=== PATIENT | female | born 1950 | race Hispanic/Latino ===

== ENCOUNTER 2023-06-14 09:27 | Emergency (ER) | payer OTHER ==
[2023-06-14] MEDS ORDERED: ASPIRIN 81 MG CHEWABLE TABLET ONE (10:10)
[2023-06-14] MEDS ORDERED: NITROGLYCERIN 0.4 MG/TAB SL ONE (10:11)
[2023-06-14 10:22] LABS: Absolute Lymphocytes (CBC) 2.2 K/uL (0.7-4.9); Hematocrit 43.6 % (36.0-45.0); Lymphocytes % 23.3 % (15.3-44.8); MCV 92.3 fL (80-100); MPV 9.1 fL (7.6-11.3); Platelets 144 thou/uL (152-406); RBC Red Blood Cell Count 4.72 M/uL (3.86-4.86)
[2023-06-14 10:24] LABS: Protime INR 1.08
[2023-06-14 10:45] LABS: Albumin 3.8 g/dL (3.4-5.0); Bilirubin Direct 0.3 mg/dL (0-0.2); Bilirubin Indirect, Calculated 0.5 mg/dL (0.2-0.8); Bilirubin Total 0.8 mg/dL (0.2-1.0); Magnesium 2.2 mg/dL (1.6-2.4); Potassium 3.9 mEq/L (3.5-5.1); Protein, Total 7.5 g/dL (6.4-8.2); Troponin High Sensitivity 5.4 pg/mL (<58.9)
--- OUTSIDE RECORDS SUMMARY | 2023-06-14 11:17 | XMS REPORT | Continuity of Care Document ---
:1950 Author Organization [facility] Address [address] [place] [address] [address] [place] [address] Care Team Providers Name Role Phone Alycia BUSH, Anabela Weathers Primary Care Physician [phone] Cha BUSH, Williams Szymanski Attending Clinician Regina Nicholson PTA Attending Clinician Unavailable Antoinette Murphy MD Attending Clinician ANTOINETTE MURPHY Attending Clinician Unavailable Ksenia Vergara Attending Clinician Unavailable Javier Nicholson PTA Attending Clinician Unavailable Deepa PT, Spike Attending Clinician Unavailable Lata Jasso PTA Attending Clinician Unavailable Patti Moeller PTA Attending Clinician Unavailable Doctor Unassigned, [place] Attending Clinician Unavailable Shelia Joseph PT Attending Clinician Unavailable Joya HAZEL, Ashley Leal Attending Clinician [phone] Sarahi Orozco PT Attending Clinician Unavailable Jose Francis MD Attending Clinician [phone] Ang BUSH, Alejandrina Reddy Attending Clinician Ernie Mar MD Attending Clinician Abdias BUSH, Harde[place] Attending Clinician Provider, Unknown Attending Clinician Unavailable Alma Travis MA Attending Clinician Unavailable RUDY LEE Attending Clinician Unavailable Rudy Barry Attending Clinician MAURICE ABREU Attending Clinician Unavailable Harlan HIGH, Yadira Attending Clinician Unavailable GARRETT MURPHY Attending Clinician Unavailable Stanton BUSH, Irlanda Attending Clinician Claus Zhang Attending Clinician CLAUS MCBRIDE Attending Clinician Unavailable Geraldo Chase DO Attending Clinician Anabela Tong MD Attending Clinician [phone] ANABELA TONG Attending Clinician Unavailable Deborah Jara Attending Clinician LM ROY Attending Clinician Unavailable 2, [facility] Attending Clinician Unavailable MEKA TINOCO Attending Clinician Unavailable WILLIAMS EUBANKS Admitting Clinician Unavailable ANTOINETTE MURPHY Admitting Clinician Unavailable MEKA TINOCO Admitting Clinician Unavailable Payers Payer Name Policy Type Policy Number Effective Date Expiration Date Dong [employer]ODNEYA MEDICARE [id number] 2016 00:00:00 Problems Condition Condition Condition Status Onset Resolution Last Treating Co mments Source Name Details Category Date Date Treatment Clinician Date Abnormal Abnormal Disease Active Unive rs liver liver 2-13 ity of enzymes enzymes 00:00: [place] [address] [facility] [place] Acquired Acquired Disease Active Unive rs hypothyroi hypothyroi 3-08 it y of dism dism 00:00: [place] [facility] Type 2 Type 2 Disease Active Univers diabetes diabetes 5-22 ity of mellitus mellitus 00:00: [place] without without 00 Medical complicati complicati Br anch on, on, without without long-term long-term current current use of use of insulin insulin Essential Essential Disease Active Uni vers hypertensi hypertensi 5-22 it y of on on 00:00: [place] [facility] [place] Disease Active Overview: Univer s (myocardia (myocardia 07-11 mild it y of l l 00:00: heart [place] infarction infarction 00 attack Me dical ) ) found on Branch routine testing, no stents, follows with Dr. Becker. Stomach Stomach Disease Active Univers ulcer ulcer ity of [facility] Osteoarthr Osteoarthr Disease Active U nivers itis of itis of ity of multiple multiple [place] joints joints Medical Branch Hyperlipid Hyperlipid Disease Active U nivers emia emia ity of [facility] Primary Primary Disease Active Methodi osteoarthr osteoarthr st itis of itis of Hospita left knee left knee l S/P total S/P total Disease Active Met hodi knee knee st arthroplas arthroplas Ho spita ty, left ty, left l Diabetes Diabetes Disease Active Metho di mellitus mellitus st Hospita l Hypothyroi Hypothyroi Disease Active M ethodi dism dism st Hospita l Hypertensi Hypertensi Disease Active M ethodi on on st Hospita l Transamini Transamini Disease Active M ethodi tis tis st Hospita l Allergies, Adverse Reactions, Alerts Allergy Allergy Status Severity Reaction(s) Onset Inactive Treating Comm ents Source Name Type Date Date Clinician Gabapent Propensi Active Other (See Weakness, Methodi in ty to Comments) [address] adverse 00:00: , aching, Hospit a reaction 00 all l s to severe. drug Gabapent Propensi Active Other - See Weakness , Univers in ty to comments 8 tiredness ity o f adverse 00:00: , aching, [place] reaction 00 all Medical s severe. Branch GABAPENT DRUG Active Other-Cmnt Univ ers IN INGREDI 8 ity of 00:00: [place] 00 Medical Branch Family History Family Member Diagnosis Comments Start Date Stop Date Source Natural father Cancer Mandaeism [facility] Natural mother Arthritis [facility] Natural mother Diabetes [facility] Natural mother Heart disease [facility] Natural mother Hypertension [facility] mother Liver disease [facility] Social History Social Habit Start Date Stop Date Quantity Comments Source History of tobacco Cigarette Smoker University of use [place] [facility] History SDOH University o f Alcohol Frequency [facility] edical Branch History SDTX University o f Alcohol Std Drinks [place] [facility] History SDOH University o f Alcohol Binge [place] [facility] al [facility] Sexual orientation [facility] Hospital Alcohol intake 2022-11-15 2022-11-15 Lifetime Mandaeism 00:00:00 00:00:00 non-drinker Hospital (finding) History of Social 2022-11-15 2022-11-[address] function 00:00:00 00:00:00 Hospital Exposure to 2022-10-05 2022-10-15 Not sure University SARS-CoV-2 (event) 00:00:00 09:04:00 [facility] Tobacco use and 2022-03-22 2022-03-22 Smokeless tobacco Me thodist exposure 00:00:00 00:00:00 non-user Hospital Tobacco Comment 2016-11-29 2016-11-29 smoked in he r20s Un iversity of 00:00:00 00:00:00 [facility] Alcohol Comment 2015-07-01 2015-07-01 Occasional Universit y of 00:00:00 00:00:00 Drinker [facility] Sex [birth year] Mandaeism 00:00:00 00:00:00 Hospital Smoking Status Start Date Stop Date Source Never smoked tobacco Mandaeism H [facility]spital Ex-smoker 2016-11-29 00:00:00 2016-11-29 00:00:00 Universi [facility] Medications Ordered Filled Start Stop Current Ordering Indication Dosage Frequency Signature Comments Components Source Medication Medication Date Date Medication? Clinician (SIG) Name Name levothyroxi Yes 100ug QD Take 1 Met [facility]odi [place] [address] (SYNTHROID) 10:14: (100 mcg Ho spita 100 mcg 12 total) by l tablet mouth daily. insulin Yes Inject Methodi degludec [address] (TRESIBA 10:14: skin. Hospita FLEXTOUCH 12 l U-200 SUBQ) celecoxib 2022- No 100mg Q.5D Take 1 Meth heather (CeleBREX) 11-15 08-[address] 100 MG 00:00: 04:59 (100 mg Hospita capsule 00 :00 total) by l mouth 2 (two) times a day for 90 days. [place]DROcodone 2022- [place] [id number] 1{tbl} Q6H Take 1 Methodi -acetaminop 4-24 05-[address] hen (NORCO) 00:00: 04:59 mouth Hosp maria c 5-325 mg 00 :00 every 6 l per tablet (six) hours as needed for severe pain for up to 7 days .acute pain. Max Daily Amount: 4 tablets HYDROcodone 2023-0 2023- [place] [id number] 1{tbl} Q6H Take 1 Methodi -acetaminop 4-13 04-[address] hen ([employer]) 00:00: 04:59 mouth Hosp maria c 5-325 mg 00 :00 every 6 l per tablet (six) hours as needed for severe pain for up to 7 days .acute pain. Max Daily Amount: 4 tablets rosuvastati 3-0 Yes 10mg QD Take 1 Meth heather n (CRESTOR) 4-05 tablet (10 st 10 mg 00:00: mg total) Hospita tablet 00 by mouth l daily. HYDROcodone 3-0 2022- [place] [id number] 1{tbl} Q6H Take 1 Methodi -acetaminop 3-27 04-[address] hen ([employer]) 00:00: 04:59 mouth Hosp maria c 10-325 mg 00 :00 every 6 l per tablet (six) hours as needed for severe pain for up to 7 days .acute pain. Max Daily Amount: 4 tablets OneTouch 3-0 Yes USE TO Methodi Verio test 3-[address] strips 00:00: GLUCOSE Hospita strip test 00 ONCE DAILY l strips HYDROcodone 3-0 3- No [id number] 1{tbl} Q4H Take 1 Methodi -acetaminop 3-14 03-[address] hen ([employer]) 00:00: 04:59 mouth Hosp maria c 10-325 mg 00 :00 every 4 l per tablet (four) hours as needed for severe pain for up to 7 days .acute pain. Max Daily Amount: 6 tablets OneTouch 3-0 Yes USE TO Methodi Delica Plus 3-[address] Lancet 33 00:00: GLUCOSE Hospi ta gauge misc 00 ONCE DAILY l HYDROcodone 3-0 3- No [id number] 1{tbl} Q6H Take 1 Methodi -acetaminop 3-08 03-[address] hen ([employer]) 00:00: 04:59 mouth Hosp maria c 10-325 mg 00 :00 every 6 l per tablet (six) hours as needed for severe pain for up to 7 days .acute pain. Max Daily Amount: 4 tablets HYDROcodone 2022-0 2022- [place] [id number] 1{tbl} Q4H Take 1 Methodi -acetaminop 08-[address] hen ([employer]) 00:00: 05:59 mouth Hosp maria c 10-325 mg 00 :00 every 4 l per tablet (four) hours as needed for severe pain for up to 7 days .acute pain. Max Daily Amount: 6 tablets nitrofurant Yes TAKE ONE Me thodi oin, 08-18 (1) st macrocrysta 00:00: CAPSULE(S) Hospita l-monohydra 00 BY MOUTH l te, TWICE A (MACROBID) DAY FOR 4 100 MG DAYS. capsule aspirin 2022- No 81mg Q.5D Take 1 Methodi (ECOTRIN) 08-18 tablet (81 st 81 MG 00:00: 05:59 mg total) Hospit a enteric 00 :00 by mouth 2 l coated (two) tablet times a day for 30 days. methocarbam 2022- No 500mg Q8H Take 1 Me thodi oL 08-[address] (ROBAXIN) 00:00: 05:59 (500 mg Hosp maria c 500 MG 00 :00 total) by l tablet mouth every 8 (eight) hours as needed for muscle spasms for up to 30 days. sennosides- 2022- No 2{tbl} Q.5D Take 2 M ethodi docusate 08-[address] sodium 00:00: 05:59 mouth 2 Hospita (Senna with 00 :00 (two) l Docusate times a Sodium) day for 30 8.6-50 mg days. Hold per tablet for loose stools or diarrhea cefadroxil 2022- No 500mg Q.5D Take 1 Met hodi (DURICEF) 08-[address] 500 MG 00:00: 05:59 (500 mg Hospita capsule 00 :00 total) by l mouth 2 (two) times a day for 10 days. HYDRO[place]one 2022-20[place]- [place] [id number] 1{tbl} Q4H Take 1 Methodi -acetaminop 08-[address] hen (NORCO) 00:00: 05:59 mouth Hosp maria c 10-325 mg 00 :00 every 4 l per tablet (four) hours as needed for severe pain for up to 7 days .acute pain. Max Daily Amount: 6 tablets keTOROlac 0 2022- No 10mg Q6H Take 1 Metho di (TORadol) 2 02-14 tablet (10 st 10 mg 00:00: 05:59 mg total) Hospit a tablet 00 :00 by mouth l every 6 (six) hours as needed for moderate pain for up to 5 days. amoxicillin 0 2022- No 1{tbl} Q.5D Take 1 M ethodi -pot 2-[address] clavulanate 00:00: 00:00 mouth 2 Ho spita (Augmentin) 00 :00 (two) l 875-125 mg times a per tablet day for 4 days. nitrofurant 2022-2022- No 100mg Q.5D Take 1 Me thodi oin, 08-[address] macrocrysta 00:00: 00:00 (100 mg Ho spita l-monohydra 00 :00 total) by l te, mouth 2 (Macrobid) (two) 100 MG times a capsule day for 4 days. metoprolol Yes 25mg QD Take 1 Metho di succinate 1-16 tablet (25 st XL 00:00: mg total) Hospita (TOPROL-XL) 00 by mouth l 25 mg 24 hr daily. tablet Janumet XR Yes TAKE 1 Metho di 100-1,000 8-[address] mg tablet, 00:00: MOUTH ONCE H ospita ER 00 A DAY WITH l multiphase EVENING 24 hr MEAL fluticasone 0 Yes [id number] 1{spray Use 1 Univers propionate 8-12 } [place] in ity o f 50 00:00: each [place] mcg/actuati 00 nostril Medic al on nasal daily. Branch spray azelastine Yes [id number] 1{spray Use 1 Univers 137 mcg 8-12 } [place] in ity of (0.1 %) 00:00: each [place] nasal spray 00 nostril 2 Med ical (two) Branch times daily. Use in each nostril as directed fluticasone 2020-0 Yes [id number] 1{spray Use 1 Univers propionate 8-12 } [place] in ity o f 50 00:00: each [place] mcg/actuati 00 nostril Medic al on nasal daily. Branch spray azelastine 2020-0 Yes [id number] 1{spray Use 1 Univers 137 mcg 8-12 } [place] in ity of (0.1 %) 00:00: each [place] nasal spray 00 nostril 2 Med ical (two) Branch times daily. Use in each nostril as directed fluticasone 2020-0 Yes [id number] 1{spray Use 1 Univers propionate 8-12 } [place] in ity o f 50 00:00: each [place] mcg/actuati 00 nostril Medic al on nasal daily. Branch spray azelastine 2020-0 Yes [id number] 1{spray Use 1 Univers 137 mcg 8-12 } [place] in ity of (0.1 %) 00:00: each [place] nasal spray 00 nostril 2 Med ical (two) Branch times daily. Use in each nostril as directed fluticasone 2020-0 Yes [id number] 1{spray Use 1 Univers propionate 8-12 } [place] in ity o f 50 00:00: each [place] mcg/actuati 00 nostril Medic al on nasal daily. Branch spray azelastine 2020-0 Yes [id number] 1{spray Use 1 Univers 137 mcg 8-12 } [place] in ity of (0.1 %) 00:00: each [place] nasal spray 00 nostril 2 Med ical (two) Branch times daily. Use in each nostril as directed fluticasone 2020-0 Yes [id number] 1{spray Use 1 Univers propionate 8-12 } [place] in ity o f 50 00:00: each [place] mcg/actuati 00 nostril Medic al on nasal daily. Branch spray azelastine 2020-0 Yes [id number] 1{spray Use 1 Univers 137 mcg 8-12 } [place] in ity of (0.1 %) 00:00: each [place] nasal spray 00 nostril 2 Med ical (two) Branch times daily. Use in each nostril as directed fluticasone 2020-0 Yes [id number] 1{spray Use 1 Univers propionate 8-12 } [place] in ity o f 50 00:00: each [place] mcg/actuati 00 nostril Medic al on nasal daily. Branch spray azelastine 2020-0 Yes [id number] 1{spray Use 1 Univers 137 mcg 8-12 } [place] in ity of (0.1 %) 00:00: each [place] nasal spray 00 nostril 2 Med ical (two) Branch times daily. Use in each nostril as directed fluticasone 2020-0 Yes [id number] 1{spray Use 1 Univers propionate 8-12 } [place] in ity o f 50 00:00: each [place] mcg/actuati 00 nostril Medic al on nasal daily. Branch spray azelastine 2020-0 Yes [id number] 1{spray Use 1 Univers 137 mcg 8-12 } [place] in ity of (0.1 %) 00:00: each [place] nasal spray 00 nostril 2 Med ical (two) Branch times daily. Use in each nostril as directed fluticasone 2020-0 Yes [id number] 1{spray Use 1 Univers propionate 8-12 } [place] in ity o f 50 00:00: each [place] mcg/actuati 00 nostril Medic al on nasal daily. Branch spray azelastine 2020-0 Yes [id number] 1{spray Use 1 Univers 137 mcg 8-12 } [place] in ity of (0.1 %) 00:00: each [place] nasal spray 00 nostril 2 Med ical (two) Branch times daily. Use in each nostril as directed fluticasone 2020-0 Yes [id number] 1{spray Use 1 Univers propionate 8-12 } [place] in ity o f 50 00:00: each [place] mcg/actuati 00 nostril Medic al on nasal daily. Branch spray azelastine 2020-0 Yes [id number] 1{spray Use 1 Univers 137 mcg 8-12 } [place] in ity of (0.1 %) 00:00: each [place] nasal spray 00 nostril 2 Med ical (two) Branch times daily. Use in each nostril as directed fluticasone 2020-0 Yes [id number] 1{spray Use 1 Univers propionate 8-12 } [place] in ity o f 50 00:00: each [place] mcg/actuati 00 nostril Medic al on nasal daily. Branch spray azelastine 2020-0 Yes [id number] 1{spray Use 1 Univers 137 mcg 8-12 } [place] in ity of (0.1 %) 00:00: each [place] nasal spray 00 nostril 2 Med ical (two) Branch times daily. Use in each nostril as directed fluticasone 2020-0 Yes [id number] 1{spray Use 1 Univers propionate 8-12 } [place] in ity o f 50 00:00: each [place] mcg/actuati 00 nostril Medic al on nasal daily. Branch spray azelastine 2020-0 Yes [id number] 1{spray Use 1 Univers 137 mcg 8-12 } [place] in ity of (0.1 %) 00:00: each [place] nasal spray 00 nostril 2 Med ical (two) Branch times daily. Use in each nostril as directed fluticasone 2020-0 Yes [id number] 1{spray Use 1 Univers propionate 8-12 } [place] in ity o f 50 00:00: each [place] mcg/actuati 00 nostril Medic al on nasal daily. Branch spray azelastine 2020-0 Yes [id number] 1{spray Use 1 Univers 137 mcg 8-12 } [place] in ity of (0.1 %) 00:00: each [place] nasal spray 00 nostril 2 Med ical (two) Branch times daily. Use in each nostril as directed fluticasone 2020-0 Yes [id number] 1{spray Use 1 Univers propionate 8-12 } [place] in ity o f 50 00:00: each [place] mcg/actuati 00 nostril Medic al on nasal daily. Branch spray azelastine 2020-0 Yes [id number] 1{spray Use 1 Univers 137 mcg 8-12 } [place] in ity of (0.1 %) 00:00: each [place] nasal spray 00 nostril 2 Med ical (two) Branch times daily. Use in each nostril as directed fluticasone 2020-0 Yes [id number] 1{spray Use 1 Univers propionate 8-12 } [place] in ity o f 50 00:00: each [place] mcg/actuati 00 nostril Medic al on nasal daily. Branch spray azelastine 2020-0 Yes [id number] 1{spray Use 1 Univers 137 mcg 8-12 } [place] in ity of (0.1 %) 00:00: each [place] nasal spray 00 nostril 2 Med ical (two) Branch times daily. Use in each nostril as directed fluticasone 2020-0 Yes [id number] 1{spray Use 1 Univers propionate 8-12 } [place] in ity o f 50 00:00: each [place] mcg/actuati 00 nostril Medic al on nasal daily. Branch spray azelastine 2020-0 Yes [id number] 1{spray Use 1 Univers 137 mcg 8-12 } [place] in ity of (0.1 %) 00:00: each [place] nasal spray 00 nostril 2 Med ical (two) Branch times daily. Use in each nostril as directed fluticasone 2020-0 Yes [id number] 1{spray Use 1 Univers propionate 8-12 } [place] in ity o f 50 00:00: each [place] mcg/actuati 00 nostril Medic al on nasal daily. Branch spray azelastine 2020-0 Yes [id number] 1{spray Use 1 Univers 137 mcg 8-12 } [place] in ity of (0.1 %) 00:00: each [place] nasal spray 00 nostril 2 Med ical (two) Branch times daily. Use in each nostril as directed fluticasone 2020-0 Yes [id number] 1{spray Use 1 Univers propionate 8-12 } [place] in ity o f 50 00:00: each [place] mcg/actuati 00 nostril Medic al on nasal daily. Branch spray azelastine 2020-0 Yes [id number] 1{spray Use 1 Univers 137 mcg 8-12 } [place] in ity of (0.1 %) 00:00: each [place] nasal spray 00 nostril 2 Med ical (two) Branch times daily. Use in each nostril as directed fluticasone 2020-0 Yes [id number] 1{spray Use 1 Univers propionate 8-12 } [place] in ity o f 50 00:00: each [place] mcg/actuati 00 nostril Medic al on nasal daily. Branch spray azelastine 2020-0 Yes [id number] 1{spray Use 1 Univers 137 mcg 8-12 } [place] in ity of (0.1 %) 00:00: each [place] nasal spray 00 nostril 2 Med ical (two) Branch times daily. Use in each nostril as directed fluticasone 2020-0 Yes [id number] 1{spray Use 1 Univers propionate 8-12 } [place] in ity o f 50 00:00: each [place] mcg/actuati 00 nostril Medic al on nasal daily. Branch spray azelastine 2020-0 Yes [id number] 1{spray Use 1 Univers 137 mcg 8-12 } [place] in ity of (0.1 %) 00:00: each [place] nasal spray 00 nostril 2 Med ical (two) Branch times daily. Use in each nostril as directed fluticasone 2020-0 Yes [id number] 1{spray Use 1 Univers propionate 8-12 } [place] in ity o f 50 00:00: each [place] mcg/actuati 00 nostril Medic al on nasal daily. Branch spray azelastine 2020-0 Yes [id number] 1{spray Use 1 Univers 137 mcg 8-12 } [place] in ity of (0.1 %) 00:00: each [place] nasal spray 00 nostril 2 Med ical (two) Branch times daily. Use in each nostril as directed fluticasone 2020-0 Yes [id number] 1{spray Use 1 Univers propionate 8-12 } [place] in ity o f 50 00:00: each [place] mcg/actuati 00 nostril Medic al on nasal daily. Branch spray azelastine 2020-0 Yes [id number] 1{spray Use 1 Univers 137 mcg 8-12 } [place] in ity of (0.1 %) 00:00: each [place] nasal spray 00 nostril 2 Med ical (two) Branch times daily. Use in each nostril as directed fluticasone 2020-0 Yes [id number] 1{spray Use 1 Univers propionate 8-12 } [place] in ity o f 50 00:00: each [place] mcg/actuati 00 nostril Medic al on nasal daily. Branch spray azelastine 2020-0 Yes [id number] 1{spray Use 1 Univers 137 mcg 8-12 } [place] in ity of (0.1 %) 00:00: each [place] nasal spray 00 nostril 2 Med ical (two) Branch times daily. Use in each nostril as directed fluticasone 2020-0 Yes [id number] 1{spray Use 1 Univers propionate 8-12 } [place] in ity o f 50 00:00: each [place] mcg/actuati 00 nostril Medic al on nasal daily. Branch spray azelastine 2020-0 Yes [id number] 1{spray Use 1 Univers 137 mcg 8-12 } [place] in ity of (0.1 %) 00:00: each [place] nasal spray 00 nostril 2 Med ical (two) Branch times daily. Use in each nostril as directed fluticasone 2020-0 Yes [id number] 1{spray Use 1 Univers propionate 8-12 } [place] in ity o f 50 00:00: each [place] mcg/actuati 00 nostril Medic al on nasal daily. Branch spray azelastine 2020-0 Yes [id number] 1{spray Use 1 Univers 137 mcg 8-12 } [place] in ity of (0.1 %) 00:00: each [place] nasal spray 00 nostril 2 Med ical (two) Branch times daily. Use in each nostril as directed fluticasone 2020-0 Yes [id number] 1{spray Use 1 Univers propionate 8-12 } [place] in ity o f 50 00:00: each [place] mcg/actuati 00 nostril Medic al on nasal daily. Branch spray azelastine 2020-0 Yes [id number] 1{spray Use 1 Univers 137 mcg 8-12 } [place] in ity of (0.1 %) 00:00: each [place] nasal spray 00 nostril 2 Med ical (two) Branch times daily. Use in each nostril as directed fluticasone 2020-0 Yes [id number] 1{spray Use 1 Univers propionate 8-12 } [place] in ity o f 50 00:00: each [place] mcg/actuati 00 nostril Medic al on nasal daily. Branch spray azelastine 202-0 Yes [id number] 1{spray Use 1 Univers 137 mcg 8-12 } [place] in ity of (0.1 %) 00:00: each [place] nasal spray 00 nostril 2 Med ical (two) Branch times daily. Use in each nostril as directed fluticasone 1-0 Yes [id number] 1{spray Use 1 [facility] propionate 8-12 } [place] in ity o f 50 00:00: each [place] mcg/actuati 00 nostril Medic al on nasal daily. Branch spray azelastine Yes [id number] 1{spray Use 1 Univers 137 mcg 8-12 } [place] in ity of (0.1 %) 00:00: each [place] nasal spray 00 nostril 2 Med ical (two) Branch times daily. Use in each nostril as directed fluticasone Yes [id number] 1{spray Use 1 [facility] propionate 8-12 } [place] in ity o f 50 00:00: each [place] mcg/actuati 00 nostril Medic al on nasal daily. Branch spray azelastine Yes [id number] 1{spray Use 1 Univers 137 mcg 8-12 } [place] in ity of (0.1 %) 00:00: each [place] nasal spray 00 nostril 2 Med ical (two) Branch times daily. Use in each nostril as directed levothyroxi 2019-0 Yes 125ug QD Take 1 Met hodi ne 5-[address] (SYNTHROID) 00:00: (125 mcg Ho spita 125 mcg 00 total) by l tablet mouth every morning. amLODIPine 2020-0 Yes QD Take by Meth heather (NORVASC) 5 5-[address] mg tablet 00:00: daily. Hospit a 00 l EUTHYROX 2020-0 Yes [id number] TAKE 1 Un darrel 125 mcg 5-22 TABLET BY ity of tablet 00:00: MOUTH ONCE [place] 00 DAILY IN Medical THE Branch MORNING AMLODIPINE 2020-0 Yes [id number] TAKE 1 & Univers 5 mg tablet 5-22 1/2 (ONE & it y of 00:00: ONE-HALF) [place] 00 TABLETS BY Medical MOUTH ONCE Branch DAILY EUTHYROX 2020-0 Yes [id number] TAKE 1 Un darrel 125 mcg 5-22 TABLET BY ity of tablet 00:00: MOUTH ONCE [place] 00 DAILY IN Medical THE Branch MORNING AMLODIPINE 2020-0 Yes [id number] TAKE 1 & Univers 5 mg tablet 5-22 1/2 (ONE & it y of 00:00: ONE-HALF) [place] 00 TABLETS BY Medical MOUTH ONCE Branch DAILY EUTHYROX 2020-0 Yes [id number] TAKE 1 Un darrel 125 mcg 5-22 TABLET BY ity of tablet 00:00: MOUTH ONCE [place] 00 DAILY IN Medical THE Branch MORNING AMLODIPINE 2020-0 Yes [id number] TAKE 1 & Univers 5 mg tablet 5-22 1/2 (ONE & it y of 00:00: ONE-HALF) [place] 00 TABLETS BY Medical MOUTH ONCE Branch DAILY EUTHYROX 2020-0 Yes [id number] TAKE 1 Un darrel 125 mcg 5-22 TABLET BY ity of tablet 00:00: MOUTH ONCE [place] 00 DAILY IN Medical THE Branch MORNING AMLODIPINE 2020-0 Yes [id number] TAKE 1 & Univers 5 mg tablet 5-22 1/2 (ONE & it y of 00:00: ONE-HALF) [place] 00 TABLETS BY Medical MOUTH ONCE Branch DAILY EUTHYROX 2020-0 Yes [id number] TAKE 1 Un darrel 125 mcg 5-22 TABLET BY ity of tablet 00:00: MOUTH ONCE [place] 00 DAILY IN Medical THE Branch MORNING AMLODIPINE 2020-0 Yes [id number] TAKE 1 & Univers 5 mg tablet 5-22 /2 (ONE & it y of 00:00: ONE-HALF) [place] 00 TABLETS BY Medical MOUTH ONCE Branch DAILY EUTHYROX 2020-0 Yes [id number] TAKE 1 Un darrel 125 mcg 5-22 TABLET BY ity of tablet 00:00: MOUTH ONCE [place] 00 DAILY IN Medical THE Branch MORNING AMLODIPINE 2020-0 Yes [id number] TAKE 1 & Univers 5 mg tablet 5-22 1/2 (ONE & it y of 00:00: ONE-HALF) [place] 00 TABLETS BY Medical MOUTH ONCE Branch DAILY EUTHYROX 2020-0 Yes [id number] TAKE 1 Un darrel 125 mcg 5-22 TABLET BY ity of tablet 00:00: MOUTH ONCE [place] 00 DAILY IN Medical THE Branch MORNING AMLODIPINE 2020-0 Yes [id number] TAKE 1 & [facility] 5 mg tablet 5-22 1/2 (ONE & it y of 00:00: ONE-HALF) [place] 00 TABLETS BY Medical MOUTH ONCE Branch DAILY EUTHYROX 2020-0 Yes [id number] TAKE 1 Un darrel 125 mcg 5-22 TABLET BY ity of tablet 00:00: MOUTH ONCE [place] 00 DAILY IN Medical THE Branch MORNING AMLODIPINE 2020-0 Yes [id number] TAKE 1 & [facility] 5 mg tablet 5-22 1/2 (ONE & it y of 00:00: ONE-HALF) [place] 00 TABLETS BY Medical MOUTH ONCE Branch DAILY EUTHYROX 2020-0 Yes [id number] TAKE 1 Un darrel 125 mcg 5-22 TABLET BY ity of tablet 00:00: MOUTH ONCE [place] 00 DAILY IN Medical THE Branch MORNING AMLODIPINE 2020-0 Yes [id number] TAKE 1 & [facility] 5 mg tablet 5-22 1/2 (ONE & it y of 00:00: ONE-HALF) [place] 00 TABLETS BY Medical MOUTH ONCE Branch DAILY EUTHYROX 2020-0 Yes [id number] TAKE 1 Un darrel 125 mcg 5-22 TABLET BY ity of tablet 00:00: MOUTH ONCE [place] 00 DAILY IN Medical THE Branch MORNING AMLODIPINE 2020-0 Yes [id number] TAKE 1 & [facility] 5 mg tablet 5-22 1/2 (ONE & it y of 00:00: ONE-HALF) [place] 00 TABLETS BY Medical MOUTH ONCE Branch DAILY EUTHYROX 2020-0 Yes [id number] TAKE 1 Un darrel 125 mcg 5-22 TABLET BY ity of tablet 00:00: MOUTH ONCE [place] 00 DAILY IN Medical THE Branch MORNING AMLODIPINE 2020-0 Yes [id number] TAKE 1 & [facility] 5 mg tablet 5-22 1/2 (ONE & it y of 00:00: ONE-HALF) [place] 00 TABLETS BY Medical MOUTH ONCE Branch DAILY EUTHYROX 2020-0 Yes [id number] TAKE 1 Un darrel 125 mcg 5-22 TABLET BY ity of tablet 00:00: MOUTH ONCE [place] 00 DAILY IN Medical THE Branch MORNING AMLODIPINE 2020-0 Yes [id number] TAKE 1 & [facility] 5 mg tablet 5-22 1/2 (ONE & it y of 00:00: ONE-HALF) [place] 00 TABLETS BY Medical MOUTH ONCE Branch DAILY EUTHYROX 2020-0 Yes [id number] TAKE 1 Un darrel 125 mcg 5-22 TABLET BY ity of tablet 00:00: MOUTH ONCE [place] 00 DAILY IN Medical THE Branch MORNING AMLODIPINE 2020-0 Yes [id number] TAKE 1 & [facility] 5 mg tablet 5-22 1/2 (ONE & it y of 00:00: ONE-HALF) [place] 00 TABLETS BY Medical MOUTH ONCE Branch DAILY EUTHYROX 2020-0 Yes [id number] TAKE 1 Un darrel 125 mcg 5-22 TABLET BY ity of tablet 00:00: MOUTH ONCE [place] 00 DAILY IN Medical THE Branch MORNING AMLODIPINE 2020-0 Yes [id number] TAKE 1 & [facility] 5 mg tablet 5-22 1/2 (ONE & it y of 00:00: ONE-HALF) [place] 00 TABLETS BY Medical MOUTH ONCE Branch DAILY EUTHYROX 2020-0 Yes [id number] TAKE 1 Un darrel 125 mcg 5-22 TABLET BY ity of tablet 00:00: MOUTH ONCE [place] 00 DAILY IN Medical THE Branch MORNING AMLODIPINE 2020-0 Yes [id number] TAKE 1 & [facility] 5 mg tablet 5-22 1/2 (ONE & it y of 00:00: ONE-HALF) [place] 00 TABLETS BY Medical MOUTH ONCE Branch DAILY EUTHYROX 2020-0 Yes [id number] TAKE 1 Un darrel 125 mcg 5-22 TABLET BY ity of tablet 00:00: MOUTH ONCE [place] 00 DAILY IN Medical THE Branch MORNING AMLODIPINE 2020-0 Yes [id number] TAKE 1 & [facility] 5 mg tablet 5-22 1/2 (ONE & it y of 00:00: ONE-HALF) [place] 00 TABLETS BY Medical MOUTH ONCE Branch DAILY EUTHYROX 2020-0 Yes [id number] TAKE 1 Un darrel 125 mcg 5-22 TABLET BY ity of tablet 00:00: MOUTH ONCE [place] 00 DAILY IN Medical THE Branch MORNING AMLODIPINE 2020-0 Yes [id number] TAKE 1 & [facility] 5 mg tablet 5-22 1/2 (ONE & it y of 00:00: ONE-HALF) [place] 00 TABLETS BY Medical MOUTH ONCE Branch DAILY EUTHYROX 2020-0 Yes [id number] TAKE 1 Un darrel 125 mcg 5-22 TABLET BY ity of tablet 00:00: MOUTH ONCE [place] 00 DAILY IN Medical THE Branch MORNING AMLODIPINE 2020-0 Yes [id number] TAKE 1 & [facility] 5 mg tablet 5-22 12 (ONE & it y of 00:00: ONE-HALF) [place] 00 TABLETS BY Medical MOUTH ONCE Branch DAILY EUTHYROX 2020-0 Yes [id number] TAKE 1 Un darrel 125 mcg 5-22 TABLET BY ity of tablet 00:00: MOUTH ONCE [place] 00 DAILY IN Medical THE Branch MORNING AMLODIPINE 2020-0 Yes [id number] TAKE 1 & [facility] 5 mg tablet 5-22 1/2 (ONE & it y of 00:00: ONE-HALF) [place] 00 TABLETS BY Medical MOUTH ONCE Branch DAILY EUTHYROX 2020-0 Yes [id number] TAKE 1 Un darrel 125 mcg 5-22 TABLET BY ity of tablet 00:00: MOUTH ONCE [place] 00 DAILY IN Medical THE Branch MORNING AMLODIPINE 2020-0 Yes [id number] TAKE 1 & [facility] 5 mg tablet 5-22 1/2 (ONE & it y of 00:00: ONE-HALF) [place] 00 TABLETS BY Medical MOUTH ONCE Branch DAILY EUTHYROX 2020-0 Yes [id number] TAKE 1 Un darrel 125 mcg 5-22 TABLET BY ity of tablet 00:00: MOUTH ONCE [place] 00 DAILY IN Medical THE Branch MORNING AMLODIPINE 2020-0 Yes [id number] TAKE 1 & [facility] 5 mg tablet 5-22 1/2 (ONE & it y of 00:00: ONE-HALF) [place] 00 TABLETS BY Medical MOUTH ONCE Branch DAILY EUTHYROX 2020-0 Yes [id number] TAKE 1 Un darrel 125 mcg 5-22 TABLET BY ity of tablet 00:00: MOUTH ONCE [place] 00 DAILY IN Medical THE Branch MORNING AMLODIPINE 2020-0 Yes [id number] TAKE 1 & [facility] 5 mg tablet 5-22 1/2 (ONE & it y of 00:00: ONE-HALF) [place] 00 TABLETS BY Medical MOUTH ONCE Branch DAILY EUTHYROX 2020-0 Yes [id number] TAKE 1 Un darrel 125 mcg 5-22 TABLET BY ity of tablet 00:00: MOUTH ONCE [place] 00 DAILY IN Medical THE Branch MORNING AMLODIPINE 2020-0 Yes [id number] TAKE 1 & [facility] 5 mg tablet 5-22 1/2 (ONE & it y of 00:00: ONE-HALF) [place] 00 TABLETS BY Medical MOUTH ONCE Branch DAILY EUTHYROX 2020-0 Yes [id number] TAKE 1 Un darrel 125 mcg 5-22 TABLET BY ity of tablet 00:00: MOUTH ONCE [place] 00 DAILY IN Medical THE [place] MORNING AMLODIPINE 2020-0 Yes [id number] TAKE 1 & [facility] 5 mg tablet 5-22 12 (ONE & it y of 00:00: ONE-HALF) [place] 00 TABLETS BY Medical MOUTH ONCE Branch DAILY EUTHYROX 2020-0 Yes [id number] TAKE 1 Un darrel 125 mcg 5-22 TABLET BY ity of tablet 00:00: MOUTH ONCE [place] 00 DAILY IN Medical THE Branch MORNING AMLODIPINE 2020-0 Yes [id number] TAKE 1 & [facility] 5 mg tablet 5-22 1/2 (ONE & it y of 00:00: ONE-HALF) [place] 00 TABLETS BY Medical MOUTH ONCE Branch DAILY EUTHYROX 2020-0 Yes [id number] TAKE 1 Un darrel 125 mcg 5-22 TABLET BY ity of tablet 00:00: MOUTH ONCE [place] 00 DAILY IN Medical THE Branch MORNING AMLODIPINE 2020-0 Yes [id number] TAKE 1 & [facility] 5 mg tablet 5-22 1/2 (ONE & it y of 00:00: ONE-HALF) [place] 00 TABLETS BY Medical MOUTH ONCE Branch DAILY EUTHYROX 2020-0 Yes [id number] TAKE 1 Un darrel 125 mcg 5-22 TABLET BY ity of tablet 00:00: MOUTH ONCE [place] 00 DAILY IN Medical THE Branch MORNING AMLODIPINE 2020-0 Yes [id number] TAKE 1 & [facility] 5 mg tablet 5-22 1/2 (ONE & it y of 00:00: ONE-HALF) [place] 00 TABLETS BY Medical MOUTH ONCE Branch DAILY EUTHYROX 2020-0 Yes [id number] TAKE 1 Un darrel 125 mcg 5-22 TABLET BY ity of tablet 00:00: MOUTH ONCE [place] 00 DAILY IN Medical THE Branch MORNING AMLODIPINE 2020-0 Yes [id number] TAKE 1 & [facility] 5 mg tablet 5-22 1/2 (ONE & it y of 00:00: ONE-HALF) [place] 00 TABLETS BY Medical MOUTH ONCE Branch DAILY EUTHYROX 2020-0 Yes [id number] TAKE 1 Un darrel 125 mcg 5-22 TABLET BY ity of tablet 00:00: MOUTH ONCE [place] 00 DAILY IN Medical THE Branch MORNING AMLODIPINE 2020-0 Yes [id number] TAKE 1 & [facility] 5 mg tablet 5-22 1/2 (ONE & it y of 00:00: ONE-HALF) [place] 00 TABLETS BY Medical MOUTH ONCE Branch DAILY EUTHYROX 2020-0 Yes [id number] TAKE 1 Un darrel 125 mcg 5-22 TABLET BY ity of tablet 00:00: MOUTH ONCE [place] 00 DAILY IN Medical THE Branch MORNING AMLODIPINE 2020-0 Yes [id number] TAKE 1 & [facility] 5 mg tablet 5-22 1/2 (ONE & it y of 00:00: ONE-HALF) [place] 00 TABLETS BY Medical MOUTH ONCE Branch DAILY EUTHYROX 2020-0 Yes [id number] TAKE 1 Un darrel 125 mcg 5-22 TABLET BY ity of tablet 00:00: MOUTH ONCE [place] 00 DAILY IN Medical THE Branch MORNING AMLODIPINE 2020-0 Yes [id number] TAKE 1 & [facility] 5 mg tablet 5-22 1/2 (ONE & it y of 00:00: ONE-HALF) [place] 00 TABLETS BY Medical MOUTH ONCE Branch DAILY EUTHYROX 2020-0 Yes [id number] TAKE 1 Un darrel 125 mcg 5-22 TABLET BY ity of tablet 00:00: MOUTH ONCE [place] 00 DAILY IN Medical THE Branch MORNING AMLODIPINE 2020-0 Yes [id number] TAKE 1 & [facility] 5 mg tablet 5-22 1/2 (ONE & it y of 00:00: ONE-HALF) [place] 00 TABLETS BY Medical MOUTH ONCE Branch DAILY NaCl 0.9% 2020-0 2020- No 500mL at 999 [facility] ers (NS) bolus 308 03-08 mL/hr, 500 it y of infusion 01:45: 02:09 mL, IV [place] 500 mL 00 :00 Infusion, Medical ONCE, 1 Branch dose, 09/15/19 at 1945, STAT glimepiride 2019-0 2020- No [id number] 2mg Take 1 [facility] 2 mg tablet 09-14 03-07 tablet by it y of 00:00: 00:00 mouth [place] 00 :00 daily with Medical breakfast. Branch turmeric 2020-0 Yes 500mg Take 500 [facility] ers root 2-24 mg by ity of extract 500 14:46: mouth 2 [facility] as mg Cap 33 (two) Medical times Branch daily. acetaminoph 2020-0 Yes 650mg Take 650 U nivers en (TYLENOL 2-24 mg by ity of ARTHRITIS 14:46: mouth [place] PAIN) 650 33 needed for Medi [place] mg CR Pain. Branch tablet aspirin 81 2020-0 Yes [id number] 81mg Take 81 mg [facility] mg chewable 2-24 by mouth ity of tablet 14:46: daily. [place] 33 Medical Branch [place] 2020-0 Yes 1000mg 1,000 mg. U nivers to 2-24 Takes ity of extract 14:46: 1000mg [place] (BOSWELL[place] 33 daily in Medic al TO XT, pill form. Br anch BULK, MISC) turmeric 2019-0 Yes Supplement [facility] vers (CURCUMIN 2-24 contains ity of MISC) 14:46: [place] 33 and Medical curcumin. Branch milk 2020-0 Yes Take by [facility] thistle/NAC 2-24 mouth. She it y of /dandel/tur 14:46: takes a [place] as amrit (LIVER 33 liver Medical COMPLEX support Branch ORAL) supplement . turmeric 2020-0 Yes 500mg Take 500 [facility] ers root 2-24 mg by ity of extract 500 14:46: mouth 2 [place] as mg Cap 33 (two) Medical times Branch daily. acetaminoph 2020-0 Yes 650mg Take 650 U nivers en (TYLENOL 2-24 mg by ity of ARTHRITIS 14:46: mouth as [place] PAIN[place] 650 33 needed for Medi [place]ant[facility] mg CR Pain. Branch tablet aspirin 81 2020-0 Yes [id number] 81mg Take 81 mg [facility] mg chewable 2-24 by mouth ity of tablet 14:46: daily. [address] [place] 2020-0 Yes 1000mg 1,000 mg. U nivers to 2-24 Takes ity of extract 14:46: 1000mg [place] (BOSWELLIA 33 daily in Medic al TO XT, pill form. Br anch BULK, MISC) turmeric 2020-0 Yes Supplement [facility] vers (CURCUMIN 2-24 contains ity of MISC) 14:46: [place] 33 and Medical curcumin. Branch milk 2020-0 Yes Take by [facility] thistle/NAC 2-24 mouth. She it y of /dandel/tur 14:46: takes a [place] as amrit (LIVER 33 liver Medical COMPLEX support Branch ORAL) supplement . turmeric 2020-0 Yes 500mg Take 500 [facility] ers root 2-24 mg by ity of extract 500 14:46: mouth 2 [facility] as mg Cap 33 (two) Medical times [place] daily. acetaminoph 2020-0 Yes 650mg Take 650 U nivers en (TYLENOL 2-24 mg by ity of ARTHRITIS 14:46: mouth as [place] PAIN) 650 33 needed for Medi [place]antana mg CR Pain. Branch tablet aspirin 81 2020-0 Yes [id number] 81mg Take 81 mg [facility] mg chewable 2-24 by mouth ity of tablet 14:46: daily. [address] [place] 2020-0 Yes 1000mg 1,000 mg. U nivers to 2-24 Takes ity of extract 14:46: 1000mg [place] (BOSWELL[place] 33 daily in Medic al TO XT, pill form. Br anch BULK, MISC) turmeric 2020-0 Yes Supplement [facility] vers (CURCUMIN 2-24 contains ity of MISC) 14:46: [place] 33 and Medical curcumin. Branch milk 2020-0 Yes Take by [facility] thistle/NAC 2-24 mouth. She it y of /dandel/tur 14:46: takes a [place] as amrit (LIVER 33 liver Medical COMPLEX support Branch ORAL) supplement . turmeric 2020-0 Yes 500mg Take 500 [facility] ers root 2-24 mg by ity of extract 500 14:46: mouth 2 [place] as mg Cap 33 (two) Medical times Branch daily. acetaminoph 2020-0 Yes 650mg Take 650 U nivers en (TYLENOL 2-24 mg by ity of ARTHRITIS 14:46: mouth as [place] PAIN) 650 33 needed for Medi [place]ant[place] mg CR Pain. Branch tablet aspirin 81 2020-0 Yes [id number] 81mg Take 81 mg [facility] mg chewable 2-24 by mouth ity of tablet 14:46: daily. [address] [place] 2020-0 Yes 1000mg 1,000 mg. U nivers to 2-24 Takes ity of extract 14:46: 1000mg [place] (BOSWELL[place] 33 daily in Medic al TO XT, pill form. Br anch BULK, MISC) turmeric 2020-0 Yes Supplement [facility] vers (CURCUMIN 2-24 contains ity of MISC) 14:46: [place] 33 and Medical curcumin. Branch milk 2020-0 Yes Take by [facility] thistle/NAC 2-24 mouth. She it y of /dandel/tur 14:46: takes a [place] as amrit (LIVER 33 liver Medical COMPLEX support Branch ORAL) supplement . turmeric 2020-0 Yes 500mg Take 500 [facility] ers root 2-24 mg by ity of extract 500 14:46: mouth 2 [facility] as mg Cap 33 (two) Medical times [place] daily. acetaminoph 2020-0 Yes 650mg Take 650 U nivers en (TYLENOL 2-24 mg by ity of ARTHRITIS 14:46: mouth as [place] PAIN[place] 650 33 needed for Medi santana mg CR Pain. Branch tablet aspirin 81 2020-0 Yes [id number] 81mg Take 81 mg [facility] mg chewable 2-24 by mouth ity of tablet 14:46: daily. [address] [place] 2020-0 Yes 1000mg 1,000 mg. U nivers to 2-24 Takes ity of extract 14:46: 1000mg [place] (BOSWELL[place] 33 daily in Medic al TO XT, pill form. Br anch BULK, MISC) turmeric 2020-0 Yes Supplement [facility] vers (CURCUMIN 2-24 contains ity of MISC) 14:46: [place] 33 and Medical curcumin. Branch milk 2020-0 Yes Take by [facility] thistle/NAC 2-24 mouth. She it y of /dandel/tur 14:46: takes a [place] as amrit (LIVER 33 liver Medical COMPLEX support Branch ORAL) supplement . turmeric 2020-0 Yes 500mg Take 500 [facility] ers root 2-24 mg by ity of extract 500 14:46: mouth 2 [facility] as mg Cap 33 (two) Medical times [place] daily. acetaminoph 2020-0 Yes 650mg Take 650 U nivers en (TYLENOL 2-24 mg by ity of ARTHRITIS 14:46: mouth as [place] PAIN) 650 33 needed for Medi [facility]antana mg CR Pain. Branch tablet aspirin 81 2020-0 Yes [id number] 81mg Take 81 mg [facility] mg chewable 2-24 by mouth ity of tablet 14:46: daily. [place] [address] Medical Branch [place] 2020-0 Yes 1000mg 1,000 mg. U nivers to 2-24 Takes ity of extract 14:46: 1000mg [place] (BOSWELLIA 33 daily in Medic al TO XT, pill form. Br anch BULK, MISC) turmeric 2020-0 Yes Supplement [facility] vers (CURCUMIN 2-24 contains ity of MISC) 14:46: [place] [address] and Medical curcumin. Branch milk 2019-0 Yes Take by [facility] thistle/NAC 2-24 mouth. She it y of /dandel/tur 14:46: takes a [place] as amrit (LIVER 33 liver Medical COMPLEX support Branch ORAL) supplement . turmeric 2020-0 Yes 500mg Take 500 [facility] ers root 2-24 mg by ity of extract 500 14:46: mouth 2 [facility] as mg Cap 33 (two) Medical times [place] daily. acetaminoph 2020-0 Yes 650mg Take 650 U nivers en (TYLENOL 2-24 mg by ity of ARTHRITIS 14:46: mouth as [place] PAIN[place] 650 33 needed for Medi santana mg CR Pain. Branch tablet aspirin 81 2020-0 Yes [id number] 81mg Take 81 mg [facility] mg chewable 2-24 by mouth ity of tablet 14:46: daily. [place] [address] Medical Branch [place] 2020-0 Yes 1000mg 1,000 mg. U nivers to 2-24 Takes ity of extract 14:46: 1000mg [place] (BOSWELL[place] 33 daily in Medic al TO XT, pill form. Br anch BULK, MISC) turmeric 2020-0 Yes Supplement [facility] vers (CURCUMIN 2-24 contains ity of MISC) 14:46: [place] 33 and Medical curcumin. Branch milk 2020-0 Yes Take by [facility] thistle/NAC 2-24 mouth. She it y of /dandel/tur 14:46: takes a [place] as amrit (LIVER 33 liver Medical COMPLEX support Branch ORAL) supplement . turmeric 2020-0 Yes 500mg Take 500 [facility] ers root 2-24 mg by ity of extract 500 14:46: mouth 2 [place] as mg [place] 33 (two) Medical times Branch daily. acetaminoph 2020-0 Yes 650mg Take 650 U nivers en (TYLENOL 2-24 mg by ity of ARTHRITIS 14:46: mouth as [place] PAIN) 650 33 needed for Medi [facility]antana mg CR Pain. Branch tablet aspirin 81 2020-0 Yes [id number] 81mg Take 81 mg [facility] mg chewable 2-24 by mouth ity of tablet 14:46: daily. [address] [place] 2020-0 Yes 1000mg 1,000 mg. U nivers to 2-24 Takes ity of extract 14:46: 1000mg [place] (BOSWELL[place] 33 daily in Medic al TO XT, pill form. Br anch BULK, MISC) turmeric 2020-0 Yes Supplement [facility] vers (CURCUMIN 2-24 contains ity of MISC) 14:46: [place] [address] and Medical curcumin. Branch milk 2020-0 Yes Take by [facility] thistle/NAC 2-24 mouth. She it y of /dandel/tur 14:46: takes a [facility] as amrit (LIVER 33 liver Medical COMPLEX support Branch ORAL) supplement . turmeric 2020-0 Yes 500mg Take 500 [facility] ers root 2-24 mg by ity of extract 500 14:46: mouth 2 [facility] as mg Cap 33 (two) Medical times [place] daily. acetaminoph 2020-0 Yes 650mg Take 650 U nivers en (TYLENOL 2-24 mg by ity of ARTHRITIS 14:46: mouth as [place] PAIN) 650 33 needed for Medi [facility]ant[facility] mg CR Pain. Branch tablet aspirin 81 2020-0 Yes [id number] 81mg Take 81 mg [facility] mg chewable 2-24 by mouth ity of tablet 14:46: daily. [address] [place] 2020-0 Yes 1000mg 1,000 mg. U nivers to 2-24 Takes ity of extract 14:46: 1000mg [place] (BOS[place]LL[place] 33 daily in Medic al TO XT, pill form. Br anch BULK, MISC) turmeric 2020-0 Yes Supplement [facility] vers (CURCUMIN 2-24 contains ity of MISC) 14:46: [place] 33 and Medical curcumin. Branch milk 2020-0 Yes Take by [facility] thistle/NAC 2-24 mouth. She it y of /dandel/tur 14:46: takes a [facility] as amrit (LIVER 33 liver Medical COMPLEX support Branch ORAL) supplement . turmeric 2020-0 Yes 500mg Take 500 [facility] ers root 2-24 mg by ity of extract 500 14:46: mouth 2 [facility] as mg Cap 33 (two) Medical times Branch daily. acetaminoph 2020-0 Yes 650mg Take 650 U nivers en (TYLENOL 2-24 mg by ity of ARTHRITIS 14:46: mouth as [place] PAIN) 650 33 needed for Medi [facility]ant[facility] mg CR Pain. Branch tablet aspirin 81 2020-0 Yes [id number] 81mg Take 81 mg [facility] mg chewable 2-24 by mouth ity of tablet 14:46: daily. [address] [place] 2020-0 Yes 1000mg 1,000 mg. U nivers to 2-24 Takes ity of extract 14:46: 1000mg [place] (BOS[place]LL[place] 33 daily in Medic al TO XT, pill form. Br anch BULK, MISC) turmeric 2020-0 Yes Supplement [facility] vers (CURCUMIN 2-24 contains ity of MISC) 14:46: [place] 33 and Medical curcumin. Branch milk 2020-0 Yes Take by [facility] thistle/NAC 2-24 mouth. She it y of /dandel/tur 14:46: takes a [facility] as amrit (LIVER 33 liver Medical COMPLEX support Branch ORAL) supplement . turmeric 2020-0 Yes 500mg Take 500 [facility] ers root 2-24 mg by ity of extract 500 14:46: mouth 2 [place] as mg [place] 33 (two) Medical times Branch daily. acetaminoph 2020-0 Yes 650mg Take 650 U nivers en (TYLENOL 2-24 mg by ity of ARTHRITIS 14:46: mouth as [place] PAIN) 650 33 needed for Medi [facility]ant[facility] mg CR Pain. Branch tablet aspirin 81 2020-0 Yes [id number] 81mg Take 81 mg [facility] mg chewable 2-24 by mouth ity of tablet 14:46: daily. [address] [place] 2020-0 Yes 1000mg 1,000 mg. U nivers to 2-24 Takes ity of extract 14:46: 1000mg [place] (B[place] 33 daily in Medic al TO XT, pill form. Br anch BULK, MISC) turmeric 2020-0 Yes 500mg Take 500 [facility] ers root 2-24 mg by ity of extract 500 14:46: mouth 2 [facility] as mg Cap 33 (two) Medical times Branch daily. acetaminoph 2020-0 Yes 650mg Take 650 U nivers en (TYLENOL 2-24 mg by ity of ARTHRITIS 14:46: mouth as [place] PAIN) 650 33 needed for Medi [facility]antana mg CR Pain. Branch tablet aspirin 81 2020-0 Yes [id number] 81mg Take 81 mg [facility] mg chewable 2-24 by mouth ity of tablet 14:46: daily. [place] [address] Medical Branch [place] 2020-0 Yes 1000mg 1,000 mg. U nivers to 2-24 Takes ity of extract 14:46: 1000mg [place] ([place] 33 daily in Medic al TO XT, pill form. Br anch BULK, MISC) turmeric 2020-0 Yes Supplement [facility] vers (CURCUMIN 2-24 contains ity of MISC) 14:46: [place] 33 and Medical curcumin. Branch milk 2020-0 Yes Take by [facility] thistle/NAC 2-24 mouth. She it y of /dandel/tur 14:46: takes a [place] as amrit (LIVER 33 liver Medical COMPLEX support Branch ORAL) supplement . turmeric 2020-0 Yes 500mg Take 500 [facility] ers root 2-24 mg by ity of extract 500 14:46: mouth 2 [facility] as mg Cap 33 (two) Medical times Branch daily. acetaminoph 2020-0 Yes 650mg Take 650 U nivers en (TYLENOL 2-24 mg by ity of ARTHRITIS 14:46: mouth as [place] PAIN) 650 33 needed for Medi [facility]ant[facility] mg CR Pain. Branch tablet aspirin 81 2020-0 Yes [id number] 81mg Take 81 mg [facility] mg chewable 2-24 by mouth ity of tablet 14:46: daily. [place] [address] Medical Branch [place] 2020-0 Yes 1000mg 1,000 mg. U nivers to 2-24 Takes ity of extract 14:46: 1000mg [place] (B[place] 33 daily in Medic al TO XT, pill form. Br anch BULK, MISC) turmeric 2020-0 Yes Supplement [facility] vers (CURCUMIN 2-24 contains ity of MISC) 14:46: [place] 33 and Medical curcumin. Branch milk 2020-0 Yes Take by [facility] thistle/NAC 2-24 mouth. She it y of /dandel/tur 14:46: takes a [facility] as amrit (LIVER 33 liver Medical COMPLEX support Branch ORAL) supplement . turmeric 2020-0 Yes 500mg Take 500 [facility] ers root 2-24 mg by ity of extract 500 14:46: mouth 2 [facility] as mg Cap 33 (two) Medical times Branch daily. acetaminoph 2020-0 Yes 650mg Take 650 U nivers en (TYLENOL 2-24 mg by ity of ARTHRITIS 14:46: mouth as [place] PAIN) 650 33 needed for Medi [facility]antana mg CR Pain. Branch tablet aspirin 81 2020-0 Yes [id number] 81mg Take 81 mg [facility] mg chewable 2-24 by mouth ity of tablet 14:46: daily. [address] [place] 2020-0 Yes 1000mg 1,000 mg. U nivers to 2-24 Takes ity of extract 14:46: 1000mg [place] ([place] 33 daily in Medic al TO XT, pill form. Br anch BULK, MISC) turmeric 2020-0 Yes Supplement [facility] vers (CURCUMIN 2-24 contains ity of MISC) 14:46: [place] 33 and Medical curcumin. Branch milk 2020-0 Yes Take by [facility] thistle/NAC 2-24 mouth. She it y of /dandel/tur 14:46: takes a [facility] as amrit (LIVER 33 liver Medical COMPLEX support Branch ORAL) supplement . turmeric 2020-0 Yes 500mg Take 500 [facility] ers root 2-24 mg by ity of extract 500 14:46: mouth 2 [facility] as mg Cap 33 (two) Medical times [place] daily. acetaminoph 2020-0 Yes 650mg Take 650 U nivers en (TYLENOL 2-24 mg by ity of ARTHRITIS 14:46: mouth as [place] PAIN) 650 33 needed for Medi [facility]antana mg CR Pain. Branch tablet aspirin 81 2020-0 Yes [id number] 81mg Take 81 mg [facility] mg chewable 2-24 by mouth ity of tablet 14:46: daily. [address] [place] 2020-0 Yes 1000mg 1,000 mg. U nivers to 2-24 Takes ity of extract 14:46: 1000mg [place] ([place] 33 daily in Medic al TO XT, pill form. Br anch BULK, MISC) turmeric 2020-0 Yes Supplement [facility] vers (CURCUMIN 2-24 contains ity of MISC) 14:46: [place] 33 and Medical curcumin. Branch milk 2020-0 Yes Take by [facility] thistle/NAC 2-24 mouth. She it y of /dandel/tur 14:46: takes a [facility] as amrit (LIVER 33 liver Medical COMPLEX support Branch ORAL) supplement . turmeric 2020-0 Yes 500mg Take 500 [facility] ers root 2-24 mg by ity of extract 500 08:46: mouth 2 [facility] as mg Cap 33 (two) Medical times Branch daily. acetaminoph 2020-0 Yes 650mg Take 650 U nivers en (TYLENOL 2-24 mg by ity of ARTHRITIS 08:46: mouth as [place] PAIN) 650 33 needed for Medi [facility]ant[facility] mg CR Pain. Branch tablet aspirin 81 2020-0 Yes [id number] 81mg Take 81 mg [facility] mg chewable 2-24 by mouth ity of tablet 08:46: daily. [place] 33 Medical Branch [place] 2020-0 Yes 1000mg 1,000 mg. U nivers to 2-24 Takes ity of extract 08:46: 1000mg [place] ([place] 33 daily in Medic al TO XT, pill form. Br anch BULK, MISC) turmeric 2020-0 Yes Supplement [facility] vers (CURCUMIN 2-24 contains ity of MISC) 08:46: [place] 33 and Medical curcumin. Branch milk 2020-0 Yes Take by [facility] thistle/NAC 2-24 mouth. She it y of /dandel/tur 08:46: takes a [facility] as amrit (LIVER 33 liver Medical COMPLEX support Branch ORAL) supplement . turmeric 2020-0 Yes 500mg Take 500 [facility] ers root 2-24 mg by ity of extract 500 08:46: mouth 2 [facility] as mg Cap 33 (two) Medical times Branch daily. acetaminoph 2020-0 Yes 650mg Take 650 U nivers en (TYLENOL 2-24 mg by ity of ARTHRITIS 08:46: mouth as [place] PAIN) 650 33 needed for Medi [facility]ant[facility] mg CR Pain. Branch tablet aspirin 81 2020-0 Yes [id number] 81mg Take 81 mg [facility] mg chewable 2-24 by mouth ity of tablet 08:46: daily. [address] Branch [place] 2020-0 Yes 1000mg 1,000 mg. U nivers to 2-24 Takes ity of extract 08:46: 1000mg [place] ([place] 33 daily in Medic al TO XT, pill form. Br anch BULK, MISC) turmeric 2020-0 Yes Supplement [facility] vers (CURCUMIN 2-24 contains ity of MISC) 08:46: [place] 33 and Medical curcumin. Branch milk 2020-0 Yes Take by [facility] thistle/NAC 2-24 mouth. She it y of /dandel/tur 08:46: takes a [facility] as amrit (LIVER 33 liver Medical COMPLEX support Branch ORAL) supplement . turmeric 2020-0 Yes 500mg Take 500 [facility] ers root 2-24 mg by ity of extract 500 08:46: mouth 2 [facility] as mg Cap 33 (two) Medical times Branch daily. acetaminoph 2020-0 Yes 650mg Take 650 U nivers en (TYLENOL 2-24 mg by ity of ARTHRITIS 08:46: mouth as [place] PAIN) 650 33 needed for Medi [facility] mg CR Pain. Branch tablet aspirin 81 2020-0 Yes [id number] 81mg Take 81 mg [facility] mg chewable 2-24 by mouth ity of tablet 08:46: daily. [address] [place] 2020-0 Yes 1000mg 1,000 mg. U nivers to 2-24 Takes ity of extract 08:46: 1000mg [place] (BOSWELLIA 33 daily in Medic al TO XT, pill form. Br anch BULK, MISC) turmeric 2020-0 Yes Supplement Uni vers (CURCUMIN 2-24 contains ity of MISC) 08:46: [place] 33 and Medical curcumin. Branch milk 2020-0 Yes Take by [facility] thistle/NAC 2-24 mouth. She it y of /dandel/tur 08:46: takes a [facility] as amrit (LIVER 33 liver Medical COMPLEX support Branch ORAL) supplement . turmeric 2020-0 Yes 500mg Take 500 Univ ers root 2-24 mg by ity of extract 500 08:46: mouth 2 Yuri as mg [place] 33 (two) Medical times Branch daily. acetaminoph 2020-0 Yes 650mg Take 650 U nivers en (TYLENOL 2-24 mg by ity of ARTHRITIS 08:46: [place] PA[place] needed for Medi [place] mg CR Pain. Branch tablet aspirin 81 2020-0 Yes [id number] 81mg Take 81 mg [facility] mg chewable 2-24 by mouth ity of tablet 08:46: daily. [address] [place] 2020-0 Yes 1000mg 1,000 mg. U nivers to 2-24 Takes ity of extract 08:46: 1000mg [place] (BOSWELLIA 33 daily in Medic al TO XT, pill form. Br anch BULK, MISC) turmeric 2020-0 Yes Supplement [facility] vers (CURCUMIN 2-24 contains ity of MISC) 08:46: [place] 33 and Medical curcumin. Branch milk 2020-0 Yes Take by [facility] thistle/NAC 2-24 mouth. She it y of /dandel/tur 08:46: takes a [facility] as amrit (LIVER 33 liver Medical COMPLEX support Branch ORAL) supplement . turmeric 2020-0 Yes 500mg Take 500 [facility] ers root 2-24 mg by ity of extract 500 08:46: mouth 2 [facility] as mg [place] 33 (two) Medical times Branch daily. acetaminoph 2020-0 Yes 650mg Take 650 U nivers en (TYLENOL 2-24 mg by ity of ARTHRITIS 08:46: mouth [place] PA[place] 650 33 needed for Medi [place] mg CR Pain. Branch tablet aspirin 81 2020-0 Yes [id number] 81mg Take 81 mg [facility] mg chewable 2-24 by mouth ity of tablet 08:46: daily. [address] [place] 2020-0 Yes 1000mg 1,000 mg. U nivers to 2-24 Takes ity of extract 08:46: 1000mg [place] (BOSWELLIA 33 daily in Medic al TO XT, pill form. Br anch BULK, MISC) turmeric 2020-0 Yes Supplement [facility] (CURCUMIN 2-24 contains ity of MISC) 08:46: [place] 33 and Medical curcumin. Branch milk 2020-0 Yes Take by [facility] thistle/NAC 2-24 mouth. She it y of /dandel/tur 08:46: takes a [facility] as amrit (LIVER 33 liver Medical COMPLEX support Branch ORAL) supplement . turmeric 2020-0 Yes 500mg Take 500 [facility] ers root 2-24 mg by ity of extract 500 08:46: mouth 2 [facility] as mg [place] 33 (two) Medical times Branch daily. acetaminoph 2020-0 Yes 650mg Take 650 U nivers en (TYLENOL 2-24 mg by ity of ARTHRITIS 08:46: mouth [place] PA[place] 650 33 needed for Medi [place] mg CR Pain. Branch tablet aspirin 81 2020-0 Yes [id number] 81mg Take 81 mg [facility] mg chewable 2-24 by mouth ity of tablet 08:46: daily. [address] [place] 2020-0 Yes 1000mg 1,000 mg. U nivers to 2-24 Takes ity of extract 08:46: 1000mg [place] (BOSWELLIA 33 daily in Medic al TO XT, pill form. Br anch BULK, MISC) turmeric 2020-0 Yes Supplement [facility] (CURCUMIN 2-24 contains ity of MISC) 08:46: [place] 33 and Medical curcumin. Branch milk 2020-0 Yes Take by [facility] thistle/NAC 2-24 mouth. She it y of /dandel/tur 08:46: takes a [facility] as amrit (LIVER 33 liver Medical COMPLEX support Branch ORAL) supplement . turmeric 2020-0 Yes 500mg Take 500 [facility] ers root 2-24 mg by ity of extract 500 08:46: mouth 2 Yuri as mg [place] 33 (two) Medical times [place] daily. acetaminoph 2020-0 Yes 650mg Take 650 U nivers en (TYLENOL 2-24 mg by ity of ARTHRITIS 08:46: mouth [place] PA[place] 650 33 needed for Medi [place] mg CR Pain. Branch tablet aspirin 81 2020-0 Yes [id number] 81mg Take 81 mg [facility] mg chewable 2-24 by mouth ity of tablet 08:46: daily. [address] [place] 2020-0 Yes 1000mg 1,000 mg. U nivers to 2-24 Takes ity of extract 08:46: 1000mg [place] (BOSWELLIA 33 daily in Medic al TO XT, pill form. Br anch BULK, MISC) turmeric 2020-0 Yes Supplement [facility] (CURCUMIN 2-24 contains ity of MISC) 08:46: [place] 33 and Medical curcumin. Branch milk 2020-0 Yes Take by [facility] thistle/NAC 2-24 mouth. She it y of /dandel/tur 08:46: takes a [facility] as amrit (LIVER 33 liver Medical COMPLEX support Branch ORAL) supplement . turmeric 2020-0 Yes 500mg Take 500 [facility] ers root 2-24 mg by ity of extract 500 08:46: mouth 2 [facility] as mg [place] 33 (two) Medical times Branch daily. acetaminoph 2020-0 Yes 650mg Take 650 U nivers en (TYLENOL 2-24 mg by ity of ARTHRITIS 08:46: mouth [place] PAIN[place] 650 33 needed for [facility]i [place] mg CR Pain. Branch tablet aspirin 81 2020-0 Yes [id number] 81mg Take 81 mg [facility] mg chewable 2-24 by mouth ity of tablet 08:46: daily. [place] [address] Medical Branch [place] 2020-0 Yes 1000mg 1,000 mg. U nivers to 2-24 Takes ity of extract 08:46: 1000mg [place] (BOSWELLIA 33 daily in Medic al TO XT, pill form. Br anch BULK, MISC) turmeric 2020-0 Yes Supplement [facility] (CURCUMIN 2-24 contains ity of MISC) 08:46: [place] [address] and Medical curcumin. Branch milk 2020-0 Yes Take by [facility] thistle/NAC 2-24 mouth. She it y of /dandel/tur 08:46: takes a [place] as amrit (LIVER 33 liver Medical COMPLEX support Branch ORAL) supplement . turmeric 2020-0 Yes 500mg Take 500 [facility] ers root 2-24 mg by ity of extract 500 08:46: mouth 2 Yuri as mg [place] 33 (two) Medical times [place] daily. acetaminoph 2020-0 Yes 650mg Take 650 U nivers en (TYLENOL 2-24 mg by ity of ARTHRITIS 08:46: mouth [place] PAIN[place] 650 33 needed for [facility]i [place] mg CR Pain. Branch tablet aspirin 81 2020-0 Yes [id number] 81mg Take 81 mg [facility] mg chewable 2-24 by mouth ity of tablet 08:46: daily. [place] [address] Medical [place] 2020-0 Yes 1000mg 1,000 mg. U nivers to 2-24 Takes ity of extract 08:46: 1000mg [place] (BOSWELLIA 33 daily in Medic al TO XT, pill form. Br anch BULK, MISC) turmeric 2020-0 Yes Supplement [facility] (CURCUMIN 2-24 contains ity of MISC) 08:46: [place] 33 and Medical curcumin. Branch milk 2020-0 Yes Take by [facility] thistle/NAC 2-24 mouth. She it y of /dandel/tur 08:46: takes a [facility] as amrit (LIVER 33 liver Medical COMPLEX support Branch ORAL) supplement . turmeric 2020-0 Yes 500mg Take 500 [facility] ers root 2-24 mg by ity of extract 500 08:46: mouth 2 [facility] as mg [place] 33 (two) Medical times Branch daily. acetaminoph 2020-0 Yes 650mg Take 650 U nivers en (TYLENOL 2-24 mg by ity of ARTHRITIS 08:46: mouth [place] PAIN[place] 650 33 needed for Medi [place] mg CR Pain. Branch tablet aspirin 81 2020-0 Yes [id number] 81mg Take 81 mg [facility] mg chewable 2-24 by mouth ity of tablet 08:46: daily. [address] [place] 2020-0 Yes 1000mg 1,000 mg. U nivers to 2-24 Takes ity of extract 08:46: 1000mg [place] (BOSWELLIA 33 daily in Medic al TO XT, pill form. Br anch BULK, MISC) turmeric 2020-0 Yes Supplement [facility] (CURCUMIN 2-24 contains ity of MISC) 08:46: [place] [address] and Medical curcumin. Branch milk 2020-0 Yes Take by [facility] thistle/NAC 2-24 mouth. She it y of /dandel/tur 08:46: takes a [facility] as amrit (LIVER 33 liver Medical COMPLEX support Branch ORAL) supplement . turmeric 2020-0 Yes 500mg Take 500 [facility] ers root 2-24 mg by ity of extract 500 08:46: mouth 2 Yuri as mg Cap 33 (two) Medical times [place] daily. acetaminoph 2020-0 Yes 650mg Take 650 U nivers en (TYLENOL 2-24 mg by ity of ARTHRITIS 08:46: mouth [place] PAIN[place] 650 33 needed for [facility]i [place] mg CR Pain. Branch tablet aspirin 81 2020-0 Yes [id number] 81mg Take 81 mg [facility] mg chewable 2-24 by mouth ity of tablet 08:46: daily. [address] [place] 2020-0 Yes 1000mg 1,000 mg. U nivers to 2-24 Takes ity of extract 08:46: 1000mg [place] (BOSWELLIA 33 daily in Medic al TO XT, pill form. Br anch BULK, MISC) turmeric 2020-0 Yes Supplement [facility] vers (CURCUMIN 2-24 contains ity of MISC) 08:46: [place] 33 and Medical curcumin. Branch milk 2020-0 Yes Take by [facility] thistle/NAC 2-24 mouth. She it y of /dandel/tur 08:46: takes a [facility] as amrit (LIVER 33 liver Medical COMPLEX support Branch ORAL) supplement . turmeric 2020-0 Yes 500mg Take 500 [facility] ers root 2-24 mg by ity of extract 500 08:46: mouth 2 [facility] as mg [place] 33 (two) Medical times Branch daily. acetaminoph 2020-0 Yes 650mg Take 650 U nivers en (TYLENOL 2-24 mg by ity of ARTHRITIS 08:46: mouth [place] PA[place] 650 33 needed for [facility]i [place] mg CR Pain. Branch tablet aspirin 81 2020-0 Yes [id number] 81mg Take 81 mg [facility] mg chewable 2-24 by mouth ity of tablet 08:46: daily. [address] [place] 2020-0 Yes 1000mg 1,000 mg. U nivers to 2-24 Takes ity of extract 08:46: 1000mg [place] (BOSWELLIA 33 daily in Medic al TO XT, pill form. Br anch BULK, MISC) turmeric 2020-0 Yes Supplement [facility] vers (CURCUMIN 2-24 contains ity of MISC) 08:46: [facility] 33 and Medical curcumin. Branch milk 2020-0 Yes Take by [facility] thistle/NAC 2-24 mouth. She it y of /dandel/tur 08:46: takes a [facility]uri as amrit (LIVER 33 liver Medical COMPLEX support Branch ORAL) supplement . turmeric 2020-0 Yes 500mg Take 500 [facility] ers root 2-24 mg by ity of extract 500 08:46: mouth 2 [facility] as mg [place] 33 (two) Medical times Branch daily. acetaminoph 2020-0 Yes 650mg Take 650 U nivers en (TYLENOL 2-24 mg by ity of ARTHRITIS 08:46: mouth [place] PAIN[place] 650 33 needed for Medi [facility] mg CR Pain. Branch tablet aspirin 81 2020-0 Yes [id number] 81mg Take 81 mg [facility] mg chewable 2-24 by mouth ity of tablet 08:46: daily. [address] [place] 2020-0 Yes 1000mg 1,000 mg. U nivers to 2-24 Takes ity of extract 08:46: 1000mg [place] (BOSWELLIA 33 daily in Medic al TO XT, pill form. Br anch BULK, MISC) turmeric 2020-0 Yes Supplement [facility] vers (CURCUMIN 2-24 contains ity of MISC) 08:46: [facility] 33 and Medical curcumin. Branch milk 2020-0 Yes Take by [facility] thistle/NAC 2-24 mouth. She it y of /dandel/tur 08:46: takes a [facility]uri as amrit (LIVER 33 liver Medical COMPLEX support Branch ORAL) supplement . turmeric 2020-0 Yes 500mg Take 500 [facility] ers root 2-24 mg by ity of extract 500 08:46: mouth 2 [facility] as mg [place] 33 (two) Medical times Branch daily. acetaminoph 2020-0 Yes 650mg Take 650 U nivers en (TYLENOL 2-24 mg by ity of ARTHRITIS 08:46: mouth [place] PAIN[place] 650 33 needed for [facility]i [facility] mg CR Pain. Branch tablet aspirin 81 2020-0 Yes [id number] 81mg Take 81 mg [facility] mg chewable 2-24 by mouth ity of tablet 08:46: daily. [place] 33 Medical Branch [place] 2020-0 Yes 1000mg 1,000 mg. U nivers to 2-24 Takes ity of extract 08:46: 1000mg [place] (BOSWELLIA 33 daily in Medic al TO XT, pill form. Br anch BULK, MISC) turmeric 2020-0 Yes Supplement [facility] vers (CURCUMIN 2-24 contains ity of MISC) 08:46: [facility] 33 and Medical curcumin. Branch milk 2020-0 Yes Take by [facility] thistle/NAC 2-24 mouth. She it y of /dandel/tur 08:46: takes a Yuri as amrit (LIVER 33 liver Medical COMPLEX support Branch ORAL) supplement . turmeric 2020-0 Yes 500mg Take 500 [facility] ers root 2-24 mg by ity of extract 500 08:46: mouth 2 Yuri as mg [place] 33 (two) Medical times Branch daily. acetaminoph 2020-0 Yes 650mg Take 650 U nivers en (TYLENOL 2-24 mg by ity of ARTHRITIS 08:46: mouth [place] PAIN[place] 650 33 needed for Medi [place] mg CR Pain. Branch tablet aspirin 81 2020-0 Yes [id number] 81mg Take 81 mg [facility] mg chewable 2-24 by mouth ity of tablet 08:46: daily. [place] [address] Medical Branch [place] 2020-0 Yes 1000mg 1,000 mg. U nivers to 2-24 Takes ity of extract 08:46: 1000mg [place] (BOSWELLIA 33 daily in Medic al TO XT, pill form. Br anch BULK, MISC) turmeric 2020-0 Yes Supplement [facility] vers (CURCUMIN 2-24 contains ity of MISC) 08:46: [facility] 33 and Medical curcumin. Branch milk 2020-0 Yes Take by [facility] thistle/NAC 2-24 mouth. She it y of /dandel/tur 08:46: takes a Yuri as amrit (LIVER 33 liver Medical COMPLEX support Branch ORAL) supplement . turmeric 2020-0 Yes 500mg Take 500 Univ ers root 2-24 mg by ity of extract 500 08:46: mouth 2 Yuri as mg [place] 33 (two) Medical times Branch daily. acetaminoph 2020-0 Yes 650mg Take 650 U nivers en (TYLENOL 2-24 mg by ity of ARTHRITIS 08:46: mouth [place] PA[place] 650 33 needed for Medi [place] mg CR Pain. Branch tablet aspirin 81 2020-0 Yes [id number] 81mg Take 81 mg [facility] mg chewable 2-24 by mouth ity of tablet 08:46: daily. [address] Branch [place] 2020-0 Yes 1000mg 1,000 mg. U nivers to 2-24 Takes ity of extract 08:46: 1000mg [place] (BOSWELLIA 33 daily in Medic al TO XT, pill form. Br anch BULK, MISC) turmeric 2020-0 Yes Supplement [facility] vers (CURCUMIN 2-24 contains ity of MISC) 08:46: [place] 33 and Medical curcumin. Branch milk 2020-0 Yes Take by [facility] thistle/NAC 2-24 mouth. She it y of /dandel/tur 08:46: takes a Yuri as amrit (LIVER 33 liver Medical COMPLEX support Branch ORAL) supplement . turmeric 2020-0 Yes 500mg Take 500 Univ ers root 2-24 mg by ity of extract 500 08:46: mouth 2 [facility] as mg [place] 33 (two) Medical times Branch daily. acetaminoph 2020-0 Yes 650mg Take 650 U nivers en (TYLENOL 2-24 mg by ity of ARTHRITIS 08:46: mouth [place] PA[place] 650 33 needed for Medi [place] mg CR Pain. Branch tablet aspirin 81 2020-0 Yes [id number] 81mg Take 81 mg [facility] mg chewable 2-24 by mouth ity of tablet 08:46: daily. [address] Branch [place] 2020-0 Yes 1000mg 1,000 mg. U nivers to 2-24 Takes ity of extract 08:46: 1000mg [place] (BOSWELLIA 33 daily in Medic al TO XT, pill form. Br anch BULK, MISC) turmeric 2020-0 Yes Supplement [facility] vers (CURCUMIN 2-24 contains ity of MISC) 08:46: [facility] 33 and Medical curcumin. Branch milk 2020-0 Yes Take by [facility] thistle/NAC 2-24 mouth. She it y of /dandel/tur 08:46: takes a Yuri as amrit (LIVER 33 liver Medical COMPLEX support Branch ORAL) supplement . turmeric 2020-0 Yes 500mg Take 500 Univ ers root 2-24 mg by ity of extract 500 08:46: mouth 2 [facility] as mg Cap 33 (two) Medical times Branch daily. acetaminoph 2020-0 Yes 650mg Take 650 U nivers en (TYLENOL 2-24 mg by ity of ARTHRITIS 08:46: mouth [place] PAIN[place] 650 33 needed for Medi [place] mg CR Pain. Branch tablet aspirin 81 2020-0 Yes [id number] 81mg Take 81 mg [facility] mg chewable 2-24 by mouth ity of tablet 08:46: daily. [address] [place] 2020-0 Yes 1000mg 1,000 mg. U nivers to 2-24 Takes ity of extract 08:46: 1000mg [place] (BOSWELLIA 33 daily in Medic al TO XT, pill form. Br anch BULK, MISC) turmeric 2020-0 Yes Supplement [facility] vers (CURCUMIN 2-24 contains ity of MISC) 08:46: [facility] 33 and Medical curcumin. Branch milk 2020-0 Yes Take by [facility] thistle/NAC 2-24 mouth. She it y of /dandel/tur 08:46: takes a Yuri as amrit (LIVER 33 liver Medical COMPLEX support Branch ORAL) supplement . turmeric 2020-0 Yes 500mg Take 500 Univ ers root 2-24 mg by ity of extract 500 08:46: mouth 2 [facility] as mg Cap 33 (two) Medical times Branch daily. acetaminoph 2020-0 Yes 650mg Take 650 U nivers en (TYLENOL 2-24 mg by ity of ARTHRITIS 08:46: mouth [place] PAIN[place] 650 33 needed for [facility]i [place] mg CR Pain. Branch tablet aspirin 81 2020-0 Yes [id number] 81mg Take 81 mg [facility] mg chewable 2-24 by mouth ity of tablet 08:46: daily. [address] Branch [place] 2020-0 Yes 1000mg 1,000 mg. U nivers to 2-24 Takes ity of extract 08:46: 1000mg [place] (BOSWELLIA 33 daily in Medic al TO XT, pill form. Br anch BULK, MISC) turmeric 2020-0 Yes Supplement [facility] vers (CURCUMIN 2-24 contains ity of MISC) 08:46: [place] 33 and Medical curcumin. Branch milk 2020-0 Yes Take by [facility] thistle/NAC 2-24 mouth. She it y of /dandel/tur 08:46: takes a [facility]uri as amrit (LIVER 33 liver Medical COMPLEX support Branch ORAL) supplement . turmeric 2020-0 Yes 500mg Take 500 Univ ers root 2-24 mg by ity of extract 500 08:46: mouth 2 Yuri as mg Cap 33 (two) Medical times [place] daily. acetaminoph 2020-0 Yes 650mg Take 650 U nivers en (TYLENOL 2-24 mg by ity of ARTHRITIS 08:46: mouth [place] PAIN[place] 650 33 needed for [facility]i [place] mg CR Pain. Branch tablet aspirin 81 2020-0 Yes [id number] 81mg Take 81 mg [facility] mg chewable 2-24 by mouth ity of tablet 08:46: daily. [address] [place] 2020-0 Yes 1000mg 1,000 mg. U nivers to 2-24 Takes ity of extract 08:46: 1000mg [place] (BOSWELLIA 33 daily in Medic al TO XT, pill form. Br anch BULK, MISC) turmeric 2020-0 Yes Supplement [facility] vers (CURCUMIN 2-24 contains ity of MISC) 08:46: [place] 33 and Medical curcumin. Branch milk 2020-0 Yes Take by [facility] thistle/NAC 2-24 mouth. She it y of /dandel/tur 08:46: takes a [place] as amrit (LIVER 33 liver Medical COMPLEX support Branch ORAL) supplement . turmeric 2020-0 Yes 500mg Take 500 Univ ers root 2-24 mg by ity of extract 500 08:46: mouth 2 Yuri as mg Cap 33 (two) Medical times [place] daily. acetaminoph 2020-0 Yes 650mg Take 650 U nivers en (TYLENOL 2-24 mg by ity of ARTHRITIS 08:46: mouth [place] PAIN[place] 650 33 needed for Medi [place] mg CR Pain. Branch tablet aspirin 81 2020-0 Yes [id number] 81mg Take 81 mg [facility] mg chewable 2-24 by mouth ity of tablet 08:46: daily. [address] Branch [place] 2020-0 Yes 1000mg 1,000 mg. U nivers to 2-24 Takes ity of extract 08:46: 1000mg [place] (BOSWELLIA 33 daily in Medic al TO XT, pill form. Br anch BULK, MISC) turmeric 2020-0 Yes Supplement [facility] vers (CURCUMIN 2-24 contains ity of MISC) 08:46: [place] 33 and Medical curcumin. Branch milk 2020-0 Yes Take by [facility] thistle/NAC 2-24 mouth. She it y of /dandel/tur 08:46: takes a [place] as am[place] (LIVER 33 liver Medical COMPLEX support Branch ORAL) supplement . turmeric 2020-0 Yes 500mg Take 500 Univ ers root 2-24 mg by ity of extract 500 08:46: mouth 2 Yuri as mg Cap 33 (two) Medical times [place] daily. acetaminoph 2020-0 Yes 650mg Take 650 U nivers en (TYLENOL 2-24 mg by ity of ARTHRITIS 08:46: mouth [place] PAIN[place] 650 33 needed for Medi [place] mg CR Pain. Branch tablet aspirin 81 2020-0 Yes [id number] 81mg Take 81 mg [facility] mg chewable 2-24 by mouth ity of tablet 08:46: daily. [address] [place] 2020-0 Yes 1000mg 1,000 mg. U nivers to 2-24 Takes ity of extract 08:46: 1000mg [place] (BOSWELLIA 33 daily in Medic al TO XT, pill form. Br anch BULK, MISC) turmeric 2020-0 Yes Supplement [facility] vers (CURCUMIN 2-24 contains ity of MISC) 08:46: [place] 33 and Medical curcumin. Branch milk 2020-0 Yes Take by [facility] thistle/NAC 2-24 mouth. She it y of /dandel/tur 08:46: takes a [facility] as amrit (LIVER 33 liver Medical COMPLEX support Branch ORAL) supplement . turmeric 2020-0 Yes 500mg Take 500 Univ ers root 2-24 mg by ity of extract 500 08:46: mouth 2 [facility] as mg Cap 33 (two) Medical times Branch daily. acetaminoph 2020-0 Yes 650mg Take 650 U nivers en (TYLENOL 2-24 mg by ity of ARTHRITIS 08:46: mouth [place] PAIN[place] 650 33 needed for Medi [facility] mg CR Pain. Branch tablet aspirin 81 2020-0 Yes [id number] 81mg Take 81 mg [facility] mg chewable 2-24 by mouth ity of tablet 08:46: daily. [address] [place] 2020-0 Yes 1000mg 1,000 mg. U nivers to 2-24 Takes ity of extract 08:46: 1000mg [place] (BOSWELLIA 33 daily in Medic al TO XT, pill form. Br anch BULK, MISC) turmeric 2020-0 Yes Supplement [facility] vers (CURCUMIN 2-24 contains ity of MISC) 08:46: [place] 33 and Medical curcumin. Branch milk 2020-0 Yes Take by [facility] thistle/NAC 2-24 mouth. She it y of /dandel/tur 08:46: takes a [facility] as amrit (LIVER 33 liver Medical COMPLEX support Branch ORAL) supplement . turmeric 2020-0 Yes 500mg Take 500 Univ ers root 2-24 mg by ity of extract 500 08:46: mouth 2 Yuri as mg Cap 33 (two) Medical times [place] daily. acetaminoph 2020-0 Yes 650mg Take 650 U nivers en (TYLENOL 2-24 mg by ity of ARTHRITIS 08:46: mouth [place] PAIN[place] 650 33 needed for Medi [place] mg CR Pain. Branch tablet aspirin 81 2020-0 Yes [id number] 81mg Take 81 mg [facility] mg chewable 2-24 by mouth ity of tablet 08:46: daily. [address] [place] 2020-0 Yes 1000mg 1,000 mg. U nivers to 2-24 Takes ity of extract 08:46: 1000mg [place] (BOSWELLIA 33 daily in Medic al TO XT, pill form. Br anch BULK, MISC) turmeric 2020-0 Yes Supplement [facility] vers (CURCUMIN 2-24 contains ity of MISC) 08:46: [place] 33 and Medical curcumin. Branch milk 2020-0 Yes Take by [facility] thistle/NAC 2-24 mouth. She it y of /dandel/tur 08:46: takes a [facility] as amrit (LIVER 33 liver Medical COMPLEX support Branch ORAL) supplement . turmeric 2020-0 Yes 500mg Take 500 Univ ers root 2-24 mg by ity of extract 500 08:46: mouth 2 [facility] as mg Cap 33 (two) Medical times Branch daily. acetaminoph 2020-0 Yes 650mg Take 650 U nivers en (TYLENOL 2-24 mg by ity of ARTHRITIS 08:46: mouth [place] PAIN[place] 650 33 needed for Medi [place] mg CR Pain. Branch tablet aspirin 81 2020-0 Yes [id number] 81mg Take 81 mg [facility] mg chewable 2-24 by mouth ity of tablet 08:46: daily. [address] [place] 2020-0 Yes 1000mg 1,000 mg. U nivers to 2-24 Takes ity of extract 08:46: 1000mg [place] (BOSWELLIA 33 daily in Medic al TO XT, pill form. Br anch BULK, MISC) turmeric 2020-0 Yes Supplement [facility] vers (CURCUMIN 2-24 contains ity of MISC) 08:46: [place] 33 and Medical curcumin. Branch milk 2020-0 Yes Take by [facility] thistle/NAC 2-24 mouth. She it y of /dandel/tur 08:46: takes a [facility] as amrit (LIVER 33 liver Medical COMPLEX support Branch ORAL) supplement . turmeric 2020-0 Yes 500mg Take 500 Univ ers root 2-24 mg by ity of extract 500 08:46: mouth 2 [facility] as mg [place] 33 (two) Medical times Branch daily. acetaminoph 2020-0 Yes 650mg Take 650 U nivers en (TYLENOL 2-24 mg by ity of ARTHRITIS 08:46: mouth [place] PAIN[place] 650 33 needed for Medi [place] mg CR Pain. Branch tablet aspirin 81 2020-0 Yes [id number] 81mg Take 81 mg [facility] mg chewable 2-24 by mouth ity of tablet 08:46: daily. [address] [place] 2020-0 Yes 1000mg 1,000 mg. U est[place]ers to 2-24 Takes ity of extract 08:46: 1000mg [place] (BOSWELLIA 33 daily in Medic al TO XT, pill form. Br anch BULK, MISC) turmeric 2020-0 Yes Supplement [facility] vers (CURCUMIN 2-24 contains ity of MISC) 08:46: [place] 33 and Medical curcumin. Branch milk 2020-0 Yes Take by [facility] thistle/NAC 2-24 mouth. She it y of /dandel/tur 08:46: takes a [facility] as amrit (LIVER 33 liver Medical COMPLEX support Branch ORAL) supplement . Diclofenac 2020-0 Yes [id number] Take 2-4 [facility] Sodium 2-24 [id number] grams ity of (VOLTAREN) 00:00: three [place] 1 % gel 00 times a Medical day as Branch needed for pain alendronate 2020-0 Yes [id number] 70mg Take 1 [facility] 70 mg 2-24 tablet by ity of tablet 00:00: mouth [place] 00 weekly. Medical Branch Diclofenac 2020-0 Yes [id number] Take 2-4 [facility] Sodium 2-24 [id number] grams ity of (VOLTAREN) 00:00: three [place] 1 % gel 00 times a Medical day as Branch needed for pain alendronate 2020-0 Yes [id number] 70mg Take 1 [facility] 70 mg 2-24 tablet by ity of tablet 00:00: mouth [place] 00 weekly. Medical Branch Diclofenac 2020-0 Yes [id number] Take 2-4 [facility] Sodium 2-24 [id number] grams ity of (VOLTAREN) 00:00: three [place] 1 % gel 00 times a Medical day as Branch needed for pain alendronate 2020-0 Yes [id number] 70mg Take 1 [facility] 70 mg 2-24 tablet by ity of tablet 00:00: mouth [place] 00 weekly. Medical Branch Diclofenac 2020-0 Yes [id number] Take 2-4 [facility] Sodium 2-24 [id number] grams ity of (VOLTAREN) 00:00: three [place] 1 % gel 00 times a Medical day as Branch needed for pain alendronate 2020-0 Yes [id number] 70mg Take 1 [facility] 70 mg 2-24 tablet by ity of tablet 00:00: mouth [place] 00 weekly. Medical Branch Diclofenac 2020-0 Yes [id number] Take 2-4 [facility] Sodium 2-24 [id number] grams ity of (VOLTAREN) 00:00: three [place] 1 % gel 00 times a Medical day as Branch needed for pain alendronate 2020-0 Yes [id number] 70mg Take 1 [facility] 70 mg 2-24 tablet by ity of tablet 00:00: mouth [place] 00 weekly. Medical Branch Diclofenac 2020-0 Yes [id number] Take 2-4 [facility] Sodium 2-24 [id number] grams ity of (VOLTAREN) 00:00: three [place] 1 % gel 00 times a Medical day as Branch needed for pain alendronate 2020-0 Yes [id number] 70mg Take 1 [facility] 70 mg 2-24 tablet by ity of tablet 00:00: mouth [place] 00 weekly. Medical Branch Diclofenac 2020-0 Yes [id number] Take 2-4 [facility] Sodium 2-24 [id number] grams ity of (VOLTAREN) 00:00: three [place] 1 % gel 00 times a Medical day as Branch needed for pain alendronate 2020-0 Yes [id number] 70mg Take 1 [facility] 70 mg 2-24 tablet by ity of tablet 00:00: mouth [place] 00 weekly. Medical Branch Diclofenac 2020-0 Yes [id number] Take 2-4 [facility] Sodium 2-24 [id number] grams ity of (VOLTAREN) 00:00: three [place] 1 % gel 00 times a Medical day as Branch needed for pain alendronate 2020-0 Yes [id number] 70mg Take 1 [facility] 70 mg 2-24 tablet by ity of tablet 00:00: mouth [place] weekly. Medical Branch Diclofenac 2020-0 Yes [id number] Take 2-4 [facility] Sodium 2-24 [id number] grams ity of (VOLTAREN) 00:00: three [place] 1 % gel 00 times a Medical day as Branch needed for pain alendronate 2020-0 Yes [id number] 70mg Take 1 [facility] 70 mg 2-24 tablet by ity of tablet 00:00: mouth [place] 00 weekly. Medical Branch Diclofenac 2020-0 Yes [id number] Take 2-4 [facility] Sodium 2-24 [id number] grams ity of (VOLTAREN) 00:00: three [place] 1 % gel 00 times a Medical day as Branch needed for pain alendronate 2020-0 Yes [id number] 70mg Take 1 [facility] 70 mg 2-24 tablet by ity of tablet 00:00: mouth [place] 00 weekly. Medical Branch Diclofenac 2020-0 Yes [id number] Take 2-4 [facility] Sodium 2-24 [id number] grams ity of (VOLTAREN) 00:00: three [place] 1 % gel 00 times a Medical day as Branch needed for pain alendronate 2020-0 Yes [id number] 70mg Take 1 [facility] 70 mg 2-24 tablet by ity of tablet 00:00: mouth [place] weekly. Medical Branch Diclofenac 2020-0 Yes [id number] Take 2-4 [facility] Sodium 2-24 [id number] grams ity of (VOLTAREN) 00:00: three [place] 1 % gel 00 times a Medical day as Branch needed for pain alendronate 2020-0 Yes [id number] 70mg Take 1 [facility] 70 mg 2-24 tablet by ity of tablet 00:00: mouth [place] weekly. Medical Branch Diclofenac 2020-0 Yes [id number] Take 2-4 [facility] Sodium 2-24 [id number] grams ity of (VOLTAREN) 00:00: three [place] 1 % gel 00 times a Medical day as Branch needed for pain alendronate 2020-0 Yes [id number] 70mg Take 1 [facility] 70 mg 2-24 tablet by ity of tablet 00:00: mouth [place] weekly. Medical Branch Diclofenac 2020-0 Yes [id number] Take 2-4 [facility] Sodium 2-24 [id number] grams ity of (VOLTAREN) 00:00: three [place] 1 % gel 00 times a Medical day as Branch needed for pain alendronate 2020-0 Yes [id number] 70mg Take 1 [facility] 70 mg 2-24 tablet by ity of tablet 00:00: mouth [place] weekly. Medical Branch Diclofenac 2020-0 Yes [id number] Take 2-4 [facility] Sodium 2-24 [id number] grams ity of (VOLTAREN) 00:00: three [place] 1 % gel 00 times a Medical day as Branch needed for pain alendronate 2020-0 Yes [id number] 70mg Take 1 [facility] 70 mg 2-24 tablet by ity of tablet 00:00: mouth [place] weekly. Medical Branch Diclofenac 2020-0 Yes [id number] Take 2-4 [facility] Sodium 2-24 [id number] grams ity of (VOLTAREN) 00:00: three [place] 1 % gel 00 times a Medical day as Branch needed for pain alendronate 2020-0 Yes [id number] 70mg Take 1 [facility] 70 mg 2-24 tablet by ity of tablet 00:00: mouth [place] 00 weekly. Medical Branch Diclofenac 2020-0 Yes [id number] Take 2-4 [facility] Sodium 2-24 [id number] grams ity of (VOLTAREN) 00:00: three [place] 1 % gel 00 times a Medical day as Branch needed for pain alendronate 2020-0 Yes [id number] 70mg Take 1 [facility] 70 mg 2-24 tablet by ity of tablet 00:00: mouth [place] weekly. Medical Branch Diclofenac 2020-0 Yes [id number] Take 2-4 [facility] Sodium 2-24 [id number] grams ity of (VOLTAREN) 00:00: three [place] 1 % gel 00 times a Medical day as Branch needed for pain alendronate 2020-0 Yes [id number] 70mg Take 1 [facility] 70 mg 2-24 tablet by ity of tablet 00:00: mouth [place] weekly. Medical Branch Diclofenac 2020-0 Yes [id number] Take 2-4 [facility] Sodium 2-24 [id number] grams ity of (VOLTAREN) 00:00: three [place] 1 % gel 00 times a Medical day as Branch needed for pain alendronate 2020-0 Yes [id number] 70mg Take 1 [facility] 70 mg 2-24 tablet by ity of tablet 00:00: mouth [place] weekly. Medical Branch Diclofenac 2020-0 Yes [id number] Take 2-4 [facility] Sodium 2-24 [id number] grams ity of (VOLTAREN) 00:00: three [place] 1 % gel 00 times a Medical day as Branch needed for pain alendronate 2020-0 Yes [id number] 70mg Take 1 [facility] 70 mg 2-24 tablet by ity of tablet 00:00: mouth [place] weekly. Medical Branch Diclofenac 2020-0 Yes [id number] Take 2-4 [facility] Sodium 2-24 [id number] grams ity of (VOLTAREN) 00:00: three [place] 1 % gel 00 times a Medical day as Branch needed for pain alendronate 2020-0 Yes [id number] 70mg Take 1 [facility] 70 mg 2-24 tablet by ity of tablet 00:00: mouth [place] 00 weekly. Medical Branch Diclofenac 2020-0 Yes [id number] Take 2-4 [facility] Sodium 2-24 [id number] grams ity of (VOLTAREN) 00:00: three [place] 1 % gel 00 times a Medical day as Branch needed for pain alendronate 2020-0 Yes [id number] 70mg Take 1 [facility] 70 mg 2-24 tablet by ity of tablet 00:00: mouth [place] 00 weekly. Medical Branch Diclofenac 2020-0 Yes [id number] Take 2-4 [facility] Sodium 2-24 [id number] grams ity of (VOLTAREN) 00:00: three [place] 1 % gel 00 times a Medical day as Branch needed for pain alendronate 2020-0 Yes [id number] 70mg Take 1 [facility] 70 mg 2-24 tablet by ity of tablet 00:00: mouth [place] 00 weekly. Medical Branch Diclofenac 2020-0 Yes [id number] Take 2-4 [facility] Sodium 2-24 [id number] grams ity of (VOLTAREN) 00:00: three [place] 1 % gel 00 times a Medical day as Branch needed for pain alendronate 2020-0 Yes [id number] 70mg Take 1 [facility] 70 mg 2-24 tablet by ity of tablet 00:00: mouth [place] 00 weekly. Medical Branch Diclofenac 2020-0 Yes [id number] Take 2-4 [facility] Sodium 2-24 [id number] grams ity of (VOLTAREN) 00:00: three [place] 1 % gel 00 times a Medical day as Branch needed for pain alendronate 2020-0 Yes [id number] 70mg Take 1 [facility] 70 mg 2-24 tablet by ity of tablet 00:00: mouth [place] 00 weekly. Medical Branch Diclofenac 2020-0 Yes [id number] Take 2-4 [facility] Sodium 2-24 [id number] grams ity of (VOLTAREN) 00:00: three [place] 1 % gel 00 times a Medical day as Branch needed for pain alendronate 2020-0 Yes [id number] 70mg Take 1 [facility] 70 mg 2-24 tablet by ity of tablet 00:00: mouth [place] 00 weekly. Medical Branch Diclofenac 2020-0 Yes [id number] Take 2-4 [facility] Sodium 2-24 [id number] grams ity of (VOLTAREN) 00:00: three [place] 1 % gel 00 times a Medical day as Branch needed for pain alendronate 2020-0 Yes [id number] 70mg Take 1 [facility] 70 mg 2-24 tablet by ity of tablet 00:00: mouth [place] 00 weekly. Medical Branch Diclofenac 2020-0 Yes [id number] Take 2-4 [facility] Sodium 2-24 [id number] grams ity of (VOLTAREN) 00:00: three [place] 1 % gel 00 times a Medical day as Branch needed for pain alendronate 2020-0 Yes [id number] 70mg Take 1 [facility] 70 mg 2-24 tablet by ity of tablet 00:00: mouth [place] 00 weekly. Medical Branch Diclofenac 2020-0 Yes [id number] Take 2-4 [facility] Sodium 2-24 [id number] grams ity of (VOLTAREN) 00:00: three [place] 1 % gel 00 times a Medical day as Branch needed for pain alendronate 2020-0 Yes [id number] 70mg Take 1 [facility] 70 mg 2-24 tablet by ity of tablet 00:00: mouth [place] 00 weekly. Medical Branch Diclofenac 2020-0 Yes [id number] Take 2-4 [facility] Sodium 2-24 [id number] grams ity of (VOLTAREN) 00:00: three [place] 1 % gel 00 times a Medical day as Branch needed for pain alendronate 2020-0 Yes [id number] 70mg Take 1 [facility] 70 mg 2-24 tablet by ity of tablet 00:00: mouth [place] 00 weekly. Medical Branch Diclofenac 2020-0 Yes [id number] Take 2-4 [facility] Sodium 2-24 [id number] grams ity of (VOLTAREN) 00:00: three [place] 1 % gel 00 times a Medical day as Branch needed for pain alendronate 2020-0 Yes [id number] 70mg Take 1 [facility] 70 mg 2-24 tablet by ity of tablet 00:00: mouth [place] 00 weekly. Medical Branch Diclofenac 2020-0 Yes [id number] Take 2-4 [facility] Sodium 2-24 [id number] grams ity of (VOLTAREN) 00:00: three [place] 1 % gel 00 times a Medical day as Branch needed for pain alendronate 2020-0 Yes [id number] 70mg Take 1 [facility] 70 mg 2-24 tablet by ity of tablet 00:00: mouth [place] 00 weekly. Medical Branch Diclofenac 2020-0 Yes [id number] Take 2-4 [facility] Sodium 2-24 [id number] grams ity of (VOLTAREN) 00:00: three [place] 1 % gel 00 times a Medical day as Branch needed for pain alendronate 2020-0 Yes [id number] 70mg Take 1 [facility] 70 mg 2-24 tablet by ity of tablet 00:00: mouth [place] 00 weekly. Medical Branch Diclofenac 2020-0 Yes [id number] Take 2-4 [facility] Sodium 2-24 [id number] grams ity of (VOLTAREN) 00:00: three [place] 1 % gel 00 times a Medical day as Branch needed for pain alendronate 2020-0 Yes [id number] 70mg Take 1 [facility] 70 mg 2-24 tablet by ity of tablet 00:00: mouth [place] 00 weekly. Medical Branch Diclofenac 2020-0 Yes [id number] Take 2-4 [facility] Sodium 2-24 [id number] grams ity of (VOLTAREN) 00:00: three [place] 1 % gel 00 times a Medical day as Branch needed for pain alendronate 2020-0 Yes [id number] 70mg Take 1 [facility] 70 mg 2-24 tablet by ity of tablet 00:00: mouth [place] 00 weekly. Medical Branch Diclofenac 2020-0 Yes [id number] Take 2-4 [facility] Sodium 2-24 [id number] grams ity of (VOLTAREN) 00:00: three [place] 1 % gel 00 times a Medical day as Branch needed for pain alendronate 2020-0 Yes [id number] 70mg Take 1 [facility] 70 mg 2-24 tablet by ity of tablet 00:00: mouth [place] weekly. Medical Branch Diclofenac 2020-0 Yes [id number] Take 2-4 [facility] Sodium 2-24 [id number] grams ity of (VOLTAREN) 00:00: three [place] 1 % gel 00 times a Medical day as Branch needed for pain alendronate 2020-0 Yes [id number] 70mg Take 1 [facility] 70 mg 2-24 tablet by ity of tablet 00:00: mouth [place] weekly. Medical Branch Diclofenac 2020-0 Yes [id number] Take 2-4 [facility] Sodium 2-24 [id number] grams ity of (VOLTAREN) 00:00: three [place] 1 % gel 00 times a Medical day as Branch needed for pain alendronate 2020-0 Yes [id number] 70mg Take 1 [facility] 70 mg 2-24 tablet by ity of tablet 00:00: mouth [place] weekly. Medical Branch Diclofenac 2020-0 Yes [id number] Take 2-4 [facility] Sodium 2-24 [id number] grams ity of (VOLTAREN) 00:00: three [place] 1 % gel 00 times a Medical day as Branch needed for pain alendronate 2020-0 Yes [id number] 70mg Take 1 [facility] 70 mg 2-24 tablet by ity of tablet 00:00: mouth [place] 00 weekly. Medical Branch Diclofenac 2020-0 Yes [id number] Take 2-4 [facility] Sodium 2-24 [id number] grams ity of (VOLTAREN) 00:00: three [place] 1 % gel 00 times a Medical day as Branch needed for pain alendronate 2020-0 Yes [id number] 70mg Take 1 [facility] 70 mg 2-24 tablet by ity of tablet 00:00: mouth [place] 00 weekly. Medical Branch levoFLOXaci 2019-0 2020- No [id number] 500mg Take 1 [facility] n 500 mg 2-24 03-06 tablet by ity o f tablet 00:00: 05:59 mouth [place] 00 :00 every 24 Medical ([facility] Branch ur) hours for 10 days. levoFLOXaci 2019-0 2020- No [id number] 500mg Take 1 [facility] n 500 mg 2-24 03-06 tablet by ity o f tablet 00:00: 05:59 mouth [place] 00 :00 every 24 Medical ([facility] Branch ur) hours for 10 days. levoFLOXaci 2019-0 2020- No [id number] 500mg Take 1 [facility] n 500 mg 2-24 03-06 tablet by ity o f tablet 00:00: 05:59 mouth [place] 00 :00 every 24 Medical ([facility] Branch ur) hours for 10 days. levoFLOXaci 2019-0 2020- No [id number] 500mg Take 1 [facility] n 500 mg 2-24 03-06 tablet by ity o f tablet 00:00: 05:59 mouth [place] 00 :00 every 24 Medical ([facility] Branch ur) hours for 10 days. levoFLOXaci 2019-0 2020- No [id number] 500mg Take 1 [facility] n 500 mg 2-24 03-06 tablet by ity o f tablet 00:00: 05:59 mouth [place] 00 :00 every 24 Medical ([facility] Branch ur) hours for 10 days. glimepiride 2020-0 Yes [id number] 4mg Take 1 [facility] 4 mg tablet 2-17 tablet by ity of 00:00: mouth 2 [place] 00 (two) Medical times Branch daily before breakfast and dinner. glimepiride 2020-0 Yes [id number] 4mg Take 1 [facility] 4 mg tablet 2-17 tablet by ity of 00:00: mouth 2 [place] 00 (two) Medical times Branch daily before breakfast and dinner. glimepiride 2020-0 Yes [id number] 4mg Take 1 [facility] 4 mg tablet 2-17 tablet by ity of 00:00: mouth (two) Medical times Branch daily before breakfast and dinner. glimepiride 2020-0 Yes [id number] 4mg Take 1 [facility] 4 mg tablet 2-17 tablet by ity of 00:00: mouth (two) Medical times Branch daily before breakfast and dinner. glimepiride 2020-0 Yes [id number] 4mg Take 1 [facility] 4 mg tablet 2-17 tablet by ity of 00:00: mouth (two) Medical times Branch daily before breakfast and dinner. glimepiride 2020-0 Yes [id number] 4mg Take 1 [facility] 4 mg tablet 2-17 tablet by ity of 00:00: mouth (two) Medical times Branch daily before breakfast and dinner. glimepiride 2020-0 Yes [id number] 4mg Take 1 [facility] 4 mg tablet 2-17 tablet by ity of 00:00: mouth (two) Medical times Branch daily before breakfast and dinner. glimepiride 2020-0 Yes [id number] 4mg Take 1 [facility] 4 mg tablet 2-17 tablet by ity of 00:00: mouth (two) Medical times Branch daily before breakfast and dinner. glimepiride 2020-0 Yes [id number] 4mg Take 1 [facility] 4 mg tablet 2-17 tablet by ity of 00:00: mouth (two) Medical times Branch daily before breakfast and dinner. glimepiride 2020-0 Yes [id number] 4mg Take 1 [facility] 4 mg tablet 2-17 tablet by ity of 00:00: mouth (two) Medical times Branch daily before breakfast and dinner. glimepiride 2020-0 Yes [id number] 4mg Take 1 [facility] 4 mg tablet 2-17 tablet by ity of 00:00: mouth (two) Medical times Branch daily before breakfast and dinner. glimepiride 2020-0 Yes [id number] 4mg Take 1 [facility] 4 mg tablet 2-17 tablet by ity of 00:00: mouth (two) Medical times Branch daily before breakfast and dinner. glimepiride 2020-0 Yes [id number] 4mg Take 1 [facility] 4 mg tablet 2-17 tablet by ity of 00:00: mouth (two) Medical times Branch daily before breakfast and dinner. glimepiride 2020-0 Yes [id number] 4mg Take 1 [facility] 4 mg tablet 2-17 tablet by ity of 00:00: mouth (two) Medical times Branch daily before breakfast and dinner. glimepiride 2020-0 Yes [id number] 4mg Take 1 [facility] 4 mg tablet 2-17 tablet by ity of 00:00: mouth (two) Medical times Branch daily before breakfast and dinner. glimepiride 2020-0 Yes [id number] 4mg Take 1 [facility] 4 mg tablet 2-17 tablet by ity of 00:00: mouth (two) Medical times Branch daily before breakfast and dinner. glimepiride 2020-0 Yes [id number] 4mg Take 1 [facility] 4 mg tablet 2-17 tablet by ity of 00:00: mouth (two) Medical times Branch daily before breakfast and dinner. glimepiride 2020-0 Yes [id number] 4mg Take 1 [facility] 4 mg tablet 2-17 tablet by ity of 00:00: mouth (two) Medical times Branch daily before breakfast and dinner. glimepiride 2020-0 Yes [id number] 4mg Take 1 [facility] 4 mg tablet 2-17 tablet by ity of 00:00: mouth (two) Medical times Branch daily before breakfast and dinner. glimepiride 2020-0 Yes [id number] 4mg Take 1 [facility] 4 mg tablet 2-17 tablet by ity of 00:00: mouth (two) Medical times Branch daily before breakfast and dinner. glimepiride 2020-0 Yes [id number] 4mg Take 1 [facility] 4 mg tablet 2-17 tablet by ity of 00:00: mouth (two) Medical times Branch daily before breakfast and dinner. glimepiride 2020-0 Yes [id number] 4mg Take 1 [facility] 4 mg tablet 2-17 tablet by ity of 00:00: mouth (two) Medical times Branch daily before breakfast and dinner. glimepiride 2020-0 Yes [id number] 4mg Take 1 [facility] 4 mg tablet 2-17 tablet by ity of 00:00: mouth (two) Medical times Branch daily before breakfast and dinner. glimepiride 2020-0 Yes [id number] 4mg Take 1 [facility] 4 mg tablet 2-17 tablet by ity of 00:00: mouth (two) Medical times Branch daily before breakfast and dinner. glimepiride 2020-0 Yes [id number] 4mg Take 1 [facility] 4 mg tablet 2-17 tablet by ity of 00:00: mouth (two) Medical times Branch daily before breakfast and dinner. glimepiride 2020-0 Yes [id number] 4mg Take 1 [facility] 4 mg tablet 2-17 tablet by ity of 00:00: mouth (two) Medical times Branch daily before breakfast and dinner. glimepiride 2020-0 Yes [id number] 4mg Take 1 [facility] 4 mg tablet 2-17 tablet by ity of 00:00: mouth (two) Medical times Branch daily before breakfast and dinner. glimepiride 2020-0 Yes [id number] 4mg Take 1 [facility] 4 mg tablet 2-17 tablet by ity of 00:00: mouth (two) Medical times Branch daily before breakfast and dinner. glimepiride 2020-0 Yes [id number] 4mg Take 1 [facility] 4 mg tablet 2-17 tablet by ity of 00:00: mouth (two) Medical times Branch daily before breakfast and dinner. glimepiride 2020-0 Yes [id number] 4mg Take 1 [facility] 4 mg tablet 2-17 tablet by ity of 00:00: mouth (two) Medical times Branch daily before breakfast and dinner. glimepiride 2020-0 Yes [id number] 4mg Take 1 [facility] 4 mg tablet 2-17 tablet by ity of 00:00: mouth (two) Medical times Branch daily before breakfast and dinner. glimepiride 2020-0 Yes [id number] 4mg Take 1 [facility] 4 mg tablet 2-17 tablet by ity of 00:00: mouth (two) Medical times Branch daily before breakfast and dinner. glimepiride 2020-0 Yes [id number] 4mg Take 1 [facility] 4 mg tablet 2-17 tablet by ity of 00:00: mouth (two) Medical times Branch daily before breakfast and dinner. glimepiride 2020-0 Yes [id number] 4mg Take 1 [facility] 4 mg tablet 2-17 tablet by ity of 00:00: mouth (two) Medical times Branch daily before breakfast and dinner. glimepiride 2020-0 Yes [id number] 4mg Take 1 [facility] 4 mg tablet 2-17 tablet by ity of 00:00: mouth (two) Medical times Branch daily before breakfast and dinner. glimepiride 2020-0 Yes [id number] 4mg Take 1 [facility] 4 mg tablet 2-17 tablet by ity of 00:00: mouth () Medical times Branch daily before breakfast and dinner. glimepiride 2020-0 Yes [id number] 4mg Take 1 [facility] 4 mg tablet 2-17 tablet by ity of 00:00: mouth (two) Medical times Branch daily before breakfast and dinner. glimepiride 2020-0 Yes [id number] 4mg Take 1 [facility] 4 mg tablet 2-17 tablet by ity of 00:00: mouth (two) Medical times Branch daily before breakfast and dinner. glimepiride 2020-0 Yes [id number] 4mg Take 1 [facility] 4 mg tablet 2-17 tablet by ity of 00:00: mouth (two) Medical times Branch daily before breakfast and dinner. glimepiride 2020-0 Yes [id number] 4mg Take 1 [facility] 4 mg tablet 2-17 tablet by ity of 00:00: mouth (two) Medical times Branch daily before breakfast and dinner. glimepiride 2020-0 Yes [id number] 4mg Take 1 [facility] 4 mg tablet 2-17 tablet by ity of 00:00: mouth (two) Medical times Branch daily before breakfast and dinner. glimepiride 2020-0 Yes [id number] 4mg Take 1 [facility] 4 mg tablet 2-17 tablet by ity of 00:00: mouth (two) Medical times Branch daily before breakfast and dinner. glimepiride 2020-0 Yes 4mg Take 1 Meth heather (AMARYL) 4 2-17 tablet (4 st MG tablet 00:00: mg total) Hos ev[facility] 00 by mouth. l turmeric 2020-0 Yes Supplement Uni vers (CURCUMIN 2-04 contains ity of MISC) 21:14: boswellia [place] 16 and Medical curcumin. Branch milk 2020-0 Yes Take by [facility] thistle/NAC 2-04 mouth. She it y of /dandel/tur 21:14: takes a Yuri as amrit (LIVER 16 liver Medical COMPLEX support Branch ORAL) supplement . turmeric 2020-0 Yes Supplement Uni vers (CURCUMIN 2-04 contains ity of MISC) 21:14: boswellia [place] 16 and Medical curcumin. Branch milk 2020-0 Yes Take by Univers thistle/NAC 2-04 mouth. She it y of /dandel/tur 21:14: takes a Yuri as amrit (LIVER 16 liver Medical COMPLEX support Branch ORAL) supplement . turmeric 2020-0 Yes Supplement Uni vers (CURCUMIN 2-04 contains ity of MISC) 21:14: boswellia [place] 16 and Medical curcumin. Branch milk 2020-0 Yes Take by [facility] thistle/NAC 2-04 mouth. She it y of /dandel/tur 21:14: takes a Yuri as amrit (LIVER 16 liver Medical COMPLEX support Branch ORAL) supplement . turmeric 2020-0 Yes Supplement Uni vers (CURCUMIN 2-04 contains ity of MISC) 21:14: boswellia [place] 16 and Medical curcumin. Branch milk 2020-0 Yes Take by Univers thistle/NAC 2-04 mouth. She it y of /dandel/tur 21:14: takes a [place] as [place] (LIVER 16 liver Medical COMPLEX support Branch ORAL) supplement . cholecalcif 2020-0 2020- No 1000U Take 1,000 [facility] phillip, 1-06 08-27 Units by ity of vitamin D3, 13:45: 00:00 mouth [place] (VITAMIN 42 :00 daily. Medical D3) 1,000 Branch unit tablet vitamin 2020-0 2020- No 1000ug Take 1,000 U nivers B-12 -06 08-27 mcg by ity of (VITAMIN 13:45: 00:00 mouth [place] B-12) 1,000 42 :00 daily. Medica l mcg tablet Branch cholecalcif 2020-0 2020- No 1000U Take 1,000 [facility] phillip, 1-06 08-27 Units by ity of vitamin D3, 13:45: 00:00 mouth [place] (VITAMIN 42 :00 daily. Medical D3) 1,000 Branch unit tablet vitamin 2020-0 2020- No 1000ug Take 1,000 U nivers B-12 - 01-27 mcg by ity of (VITAMIN 13:45: 00:00 mouth [place] B-12) 1,000 42 :00 daily. Medica l mcg tablet Branch Boswellia 2020-0 Yes 1000mg 1,000 mg. U nivers to 08-06 Takes ity of extract 13:45: 1000mg [place] (BOSWELLIA 27 daily in Medic al TO XT, pill form. [employer] [place]ULK, [facility] [place] Bos[place]ia 2020-0 Yes 1000mg 1,000 mg. U nivers to 08-06 Takes ity of extract 13:45: 1000mg [place] (BOSWELLIA 27 daily in Medic al OT XT, pill form. [employer], [facility] [place] Bos[place]ia 2020-0 Yes 1000mg 1,000 mg. U nivers to 08-06 Takes ity of extract 13:45: 1000mg [place] (BOSWELLIA 27 daily in Medic al TO XT, pill form. [employer] BULK, [facility] [place] Bos[place]ia 2020-0 Yes 1000mg 1,000 mg. U nivers to 08-06 Takes ity of extract 13:45: 1000mg [place] (BOSWELLIA 27 daily in Medic al TO XT, pill form. [employer], [facility] [place] Bos[place]ia 2020-0 Yes 1000mg 1,000 mg. U nivers to 08-06 Takes ity of extract 13:45: 1000mg [place] (BOSWELLIA 27 daily in Medic al TO XT, pill form. [employer], [facility] [place] Bos[place]ia 2020-0 Yes 1000mg 1,000 mg. U nivers to - Takes ity of extract 13:45: 1000mg [place] (BOSWELLIA 27 daily in Medic al TO XT, pill form. [employer] BULK, [facility] [place] Boswellia 2020-0 Yes 1000mg 1,000 mg. U nivers to - Takes ity of extract 13:45: 1000mg [place] (BOSWELLIA 27 daily in Medic al TO XT, pill form. [employer] [facility]ULK, [facility] [place] Bos[place]ia 2020-0 Yes 1000mg 1,000 mg. U nivers to 1-27 Takes ity of extract 13:45: 1000mg [place] (BOSWELLIA 27 daily in Medic al TO XT, pill form. Br anch BULK, [facility] [place] Boswellia 2020-0 Yes 1000mg 1,000 mg. U nivers to 1-27 Takes ity of extract 13:45: 1000mg [place] (BOSWELLIA 27 daily in Medic al TO XT, pill form. Br anch [facility]ULK, [facility] [place] Boswellia 2020-0 Yes 1000mg 1,000 mg. U nivers to 1-27 Takes ity of extract 13:45: 1000mg [place] (BOSWELLIA 27 daily in Medic al TO XT, pill form. Br anch [facility]ULK, [facility] [place] Boswellia 2020-0 Yes 1000mg 1,000 mg. U nivers to 1-27 Takes ity of extract 13:45: 1000mg [place] (BOSWELLIA 27 daily in Medic al TO XT, pill form. Br anch [facility]ULK, [facility] [place] turmeric 2020-0 Yes 500mg Take 500 Univ ers root 1-27 mg by ity of extract 500 13:45: mouth 2 Yuri as mg [place] 26 (two) Medical times Branch daily. turmeric 2020-0 Yes 500mg Take 500 Univ ers root 1-27 mg by ity of extract 500 13:45: mouth 2 [place]uri as mg Cap 26 (two) Medical times Branch daily. turmeric 2020-0 Yes 500mg Take 500 Univ ers root 1-27 mg by ity of extract 500 13:45: mouth 2 Yuri as mg Cap 26 (two) Medical times Branch daily. turmeric 2020-0 Yes 500mg Take 500 Univ ers root 1-27 mg by ity of extract 500 13:45: mouth 2 [place]uri as mg Cap 26 (two) Medical times Branch daily. turmeric 2020-0 Yes 500mg Take 500 Univ ers root 1-27 mg by ity of extract 500 13:45: mouth 2 [place] as mg Cap 26 (two) Medical times Branch daily. turmeric 2020-0 Yes 500mg Take 500 Univ ers root 1-27 mg by ity of extract 500 13:45: mouth 2 [place] as mg Cap 26 (two) Medical times Branch daily. turmeric 2020-0 Yes 500mg Take 500 Univ ers root 1-27 mg by ity of extract 500 13:45: mouth 2 Yuri as mg Cap 26 (two) Medical times Branch daily. turmeric 2020-0 Yes 500mg Take 500 Univ ers root 1-27 mg by ity of extract 500 13:45: mouth 2 [place]uri as mg Cap 26 (two) Medical times Branch daily. turmeric 2020-0 Yes 500mg Take 500 Univ ers root 1-27 mg by ity of extract 500 13:45: mouth 2 Yuri as mg Cap 26 (two) Medical times Branch daily. turmeric 2020-0 Yes 500mg Take 500 Univ ers root 1-27 mg by ity of extract 500 13:45: mouth 2 Yuri as mg Cap 26 (two) Medical times Branch daily. turmeric 2020-0 Yes 500mg Take 500 Univ ers root 1-27 mg by ity of extract 500 13:45: mouth 2 Yuri as mg Cap 26 (two) Medical times Branch daily. acetaminoph 2020-0 Yes 650mg Take 650 U nivers en (TYLENOL 1-27 mg by ity of ARTHRITIS 13:45: mouth [place] PAIN) 650 22 needed for Medi santana mg CR Pain. Branch tablet acetaminoph 2020-0 Yes 650mg Take 650 U nivers en (TYLENOL 1-27 mg by ity of ARTHRITIS 13:45: mouth [place] PAIN) 650 22 needed for Medi santana mg CR Pain. Branch tablet acetaminoph 2020-0 Yes 650mg Take 650 U nivers en (TYLENOL 1-27 mg by [facility] [place]IS 13:45: [place] 650 22 needed for [facility] mg CR Pain. Branch tablet acetaminoph 2020-0 Yes 650mg Take 650 U nivers en (TYLENOL 1-27 mg by ity of [place]THRITIS 13:45: mouth [place] 650 22 needed for [facility] mg CR Pain. Branch tablet acetaminoph 2020-0 Yes 650mg Take 650 [facility] (TYLENOL 1-27 mg by [facility] [place]THRITIS 13:45: mouth [place] 650 22 needed for [facility] mg CR Pain. Branch tablet acetaminoph 2020-0 Yes 650mg Take 650 [facility] (TYLENOL 1-27 mg by [facility]y of [place]THRITIS 13:45: mouth [place] 650 22 needed for [facility] mg CR Pain. Branch tablet acetaminoph 2020-0 Yes 650mg Take 650 [facility] (TYLENOL 1-27 mg by [facility] of [place]THRITIS 13:45: mouth [place] 650 22 needed for [facility] mg CR Pain. Branch tablet acetaminoph 2020-0 Yes 650mg Take 650 [facility] (TYLENOL 1-27 mg by [facility]y of [place]THRITIS 13:45: mouth [place] 650 22 needed for [facility] mg CR Pain. Branch tablet acetaminoph 2020-0 Yes 650mg Take 650 [facility] (TYLENOL 1-27 mg by [facility] of [place]THRITIS 13:45: mouth [place] 650 22 needed for [facility] mg CR Pain. Branch tablet acetaminoph 2020-0 Yes 650mg Take 650 [facility] (TYLENOL 1-27 mg by [facility] of [place]THRITIS 13:45: mouth [place] 650 22 needed for [facility] mg CR Pain. Branch tablet acetaminoph 2020-0 Yes 650mg Take 650 [facility] (TYLENOL 1-27 mg by [facility] of [place]THRITIS 13:45: mouth [place] 650 22 needed for [facility] mg CR Pain. [place] tablet aspirin 81 2020-0 Yes [id number] 81mg Take 81 mg [facility] mg chewable 1-27 by mouth ity of tablet 13:45: daily. [address] aspirin 81 2020-0 Yes [id number] 81mg Take 81 mg [facility] mg chewable 1-27 by mouth ity of tablet 13:45: daily. [address] aspirin 81 2020-0 Yes [id number] 81mg Take 81 mg [facility] mg chewable 1-27 by mouth ity of tablet 13:45: daily. [address] aspirin 81 2020-0 Yes [id number] 81mg Take 81 mg [facility] mg chewable 1-27 by mouth ity of tablet 13:45: daily. [address] aspirin 81 2020-0 Yes [id number] 81mg Take 81 mg [facility] mg chewable 1-27 by mouth ity of tablet 13:45: daily. [address] aspirin 81 2020-0 Yes [id number] 81mg Take 81 mg [facility] mg chewable 1-27 by mouth ity of tablet 13:45: daily. [address] aspirin 81 2020-0 Yes [id number] 81mg Take 81 mg [facility] mg chewable 1-27 by mouth ity of tablet 13:45: daily. [place] [facility] aspirin 81 2020-0 Yes [id number] 81mg Take 81 mg [facility] mg chewable 1-27 by mouth ity of tablet 13:45: daily. [place] [address] [facility] aspirin 81 2020-0 Yes [id number] 81mg Take 81 mg [facility] mg chewable 1-27 by mouth ity of tablet 13:45: daily. [place] [address] [facility] aspirin 81 2020-0 Yes [id number] 81mg Take 81 mg [facility] mg chewable 1-27 by mouth ity of tablet 13:45: daily. [place] [address] [facility] aspirin 81 2020-0 Yes [id number] 81mg Take 81 mg [facility] mg chewable 1-27 by mouth ity of tablet 13:45: daily. [place] [address] [facility] Branch Diclofenac 2020-0 Yes [id number] Take 2-4 [facility] Sodium 1-27 105 grams ity of (VOLTAREN) 00:00: three [place] 1 % gel 00 times a Medical day as Branch needed for pain glimepiride 2020-0 Yes [id number] 2mg Take 1 [facility] 2 mg tablet 1-27 tablet by ity of 00:00: mouth 2 [place] (two) Medical times Branch daily before breakfast and dinner. amLODIPine 2020-0 Yes [id number] 7.5mg Take 1.5 [facility] 5 mg tablet 1-27 tablets by it y of 00:00: mouth [place] 00 daily. Medical Branch Diclofenac 2020-0 Yes [id number] Take 2-4 [facility] Sodium 1-27 105 grams ity of (VOLTAREN) 00:00: three [place] 1 % gel 00 times a Medical day as Branch needed for pain glimepiride 2020-0 Yes [id number] 2mg Take 1 [facility] 2 mg tablet 1-27 tablet by ity of 00:00: mouth 2 [place] (two) Medical times Branch daily before breakfast and dinner. amLODIPine 2020-0 Yes [id number] 7.5mg Take 1.5 [facility] 5 mg tablet 1-27 tablets by it y of 00:00: mouth [place] 00 daily. Medical Branch Diclofenac 2020-0 Yes [id number] Take 2-4 [facility] Sodium 1-27 105 grams ity of (VOLTAREN) 00:00: three [place] 1 % gel 00 times a Medical day as Branch needed for pain glimepiride 2020-0 Yes [id number] 2mg Take 1 [facility] 2 mg tablet 1-27 tablet by ity of 00:00: mouth 2 00 (two) Medical times Branch daily before breakfast and dinner. amLODIPine 2020-0 Yes [id number] 7.5mg Take 1.5 [facility] 5 mg tablet 1-27 tablets by it y of 00:00: mouth [place] 00 daily. Medical Branch Diclofenac 2020-0 Yes [id number] Take 2-4 [facility] Sodium 1-27 105 grams ity of (VOLTAREN) 00:00: three [place] 1 % gel 00 times a Medical day as Branch needed for pain glimepiride 2020-0 Yes [id number] 2mg Take 1 [facility] 2 mg tablet 1-27 tablet by ity of 00:00: mouth 2 (two) Medical times Branch daily before breakfast and dinner. amLODIPine 2020-0 Yes [id number] 7.5mg Take 1.5 [facility] 5 mg tablet 1-27 tablets by it y of 00:00: mouth [place] 00 daily. Medical Branch Diclofenac 2020-0 Yes [id number] Take 2-4 [facility] Sodium 1-27 105 grams ity of (VOLTAREN) 00:00: three [place] 1 % gel 00 times a Medical day as Branch needed for pain glimepiride 2020-0 Yes [id number] 2mg Take 1 [facility] 2 mg tablet 1-27 tablet by ity of 00:00: mouth 2 (two) Medical times Branch daily before breakfast and dinner. amLODIPine 2020-0 Yes [id number] 7.5mg Take 1.5 [facility] 5 mg tablet 1-27 tablets by it y of 00:00: mouth [place] 00 daily. Medical Branch Diclofenac 2020-0 Yes [id number] Take 2-4 [facility] Sodium 1-27 105 grams ity of (VOLTAREN) 00:00: three [place] 1 % gel 00 times a Medical day as Branch needed for pain amLODIPine 2020-0 Yes [id number] 7.5mg Take 1.5 [facility] 5 mg tablet 1-27 tablets by it y of 00:00: mouth [place] 00 daily. Medical [facility] Diclofenac 2020-0 Yes [id number] Take 2-4 [facility] Sodium 1-27 105 grams ity of (VOLTAREN) 00:00: three [place] 1 % gel 00 times a Medical day as Branch needed for pain amLODIPine 2020-0 Yes [id number] 7.5mg Take 1.5 [facility] 5 mg tablet 1-27 tablets by it y of 00:00: mouth [place] 00 daily. Medical Branch amLODIPine 2020-0 Yes [id number] 7.5mg Take 1.5 [facility] 5 mg tablet 1-27 tablets by it y of 00:00: mouth [place] 00 daily. Medical [facility] amLODIPine 2020-0 Yes [id number] 7.5mg Take 1.5 [facility] 5 mg tablet 1-27 tablets by it y of 00:00: mouth [place] 00 daily. Medical Branch amLODIPine 2020-0 Yes [id number] 7.5mg Take 1.5 [facility] 5 mg tablet 1-27 tablets by it y of 00:00: mouth [place] 00 daily. Medical [facility] amLODIPine 2020-0 Yes [id number] 7.5mg Take 1.5 [facility] 5 mg tablet 1-27 tablets by it y of 00:00: mouth [place] 00 daily. Medical [facility] amLODIPine 2020-0 Yes [id number] 7.5mg Take 1.5 [facility] 5 mg tablet 1-27 tablets by it y of 00:00: mouth [place] 00 daily. Medical [facility] amLODIPine 2020-0 Yes [id number] 7.5mg Take 1.5 [facility] 5 mg tablet 1-27 tablets by it y of 00:00: mouth [place] 00 daily. Medical [facility] amLODIPine 2020-0 Yes [id number] 7.5mg Take 1.5 [facility] 5 mg tablet 1-27 tablets by it y of 00:00: mouth [place] 00 daily. Medical [facility] amLODIPine 2020-0 Yes [id number] 7.5mg Take 1.5 [facility] 5 mg tablet 1-27 tablets by it y of 00:00: mouth [place] 00 daily. Medical Branch Diclofenac 2020-0 Yes [id number] Take 2-4 [facility] Sodium 1-27 105 grams ity of (VOLTAREN) 00:00: three [place] 1 % gel 00 times a Medical day as Branch needed for pain glimepiride 2020-0 Yes [id number] 2mg Take 1 [facility] 2 mg tablet 1-27 tablet by ity of 00:00: mouth 2 [place] 00 (two) Medical times Branch daily before breakfast and dinner. amLODIPine 2020-0 Yes [id number] 7.5mg Take 1.5 [facility] 5 mg tablet 1-27 tablets by it y of 00:00: mouth [place] 00 daily. Medical Branch Diclofenac 2020-0 Yes [id number] Take 2-4 [facility] Sodium 1-27 105 grams ity of (VOLTAREN) 00:00: three [place] 1 % gel 00 times a Medical day as Branch needed for pain glimepiride 2020-0 Yes [id number] 2mg Take 1 [facility] 2 mg tablet 1-27 tablet by ity of 00:00: mouth 2 (two) Medical times Branch daily before breakfast and dinner. amLODIPine 2020-0 Yes [id number] 7.5mg Take 1.5 [facility] 5 mg tablet 1-27 tablets by it y of 00:00: mouth [place] 00 daily. Medical Branch Diclofenac 2019-0 Yes [id number] Take 2-4 [facility] Sodium 1-27 105 grams ity of (VOLTAREN) 00:00: three [place] 1 % gel 00 times a Medical day as Branch needed for pain glimepiride 2019-0 Yes [id number] 2mg Take 1 [facility] 2 mg tablet 1-27 tablet by ity of 00:00: mouth 2 (two) Medical times Branch daily before breakfast and dinner. amLODIPine 2020-0 Yes [id number] 7.5mg Take 1.5 [facility] 5 mg tablet 1-27 tablets by it y of 00:00: mouth [place] 00 daily. Medical Branch amLODIPine 2019-0 2020- No [id number] 7.5mg Take 1.5 [facility] 5 mg tablet 1-27 05-22 tablets by i ty of 00:00: 00:00 mouth [place] 00 :00 daily. Medical Branch amLODIPine 2020-0 2020- No [id number] 7.5mg Take 1.5 [facility] 5 mg tablet 1-27 05-22 tablets by i ty of 00:00: 00:00 mouth [place] 00 :00 daily. Medical Branch Diclofenac 2019-0 2020- No [id number] Take 2-4 [facility] Sodium 1-27 02-24 105 grams ity of (VOLTAREN) 00:00: 00:00 three [place] 1 % gel 00 :00 times a Medical day as Branch needed for pain Diclofenac 2019-0 2020- No [id number] Take 2-4 [facility] Sodium 1-27 02-24 105 grams ity of (VOLTAREN) 00:00: 00:00 three [place] 1 % gel 00 :00 times a Medical day as Branch needed for pain Diclofenac 2019-0 2020- No [id number] Take 2-4 [facility] Sodium 1-27 02-24 105 grams ity of (VOLTAREN) 00:00: 00:00 three [place] 1 % gel 00 :00 times a Medical day as Branch needed for pain Diclofenac 2020- No [id number] Take 2-4 [facility] Sodium 08-06 02-24 105 grams ity of (VOLTAREN) 00:00: 00:00 three [place] 1 % gel 00 :00 times a Medical day as Branch needed for pain glimepiride 2019- No [id number] 2mg Take 1 [facility] 2 mg tablet 08-06 tablet by it y of 00:00: 00:00 mouth 2 [place] 00 :00 (two) Medical times Branch daily before breakfast and dinner. glimepiride 2019- No [id number] 2mg Take 1 [facility] 2 mg tablet 08-06 tablet by it y of 00:00: 00:00 mouth 2 [place] 00 :00 (two) Medical times Branch daily before breakfast and dinner. AMLODIPINE 2018-07 2020- No [id number] TAKE 1 [facility] 5 mg tablet 08-06 TABLET BY it y of 00:00: 00:00 MOUTH ONCE [place] 00 :00 DAILY Medical Branch AMLODIPINE 2018-07 2020- No [id number] TAKE 1 [facility] 5 mg tablet 08-06 TABLET BY it y of 00:00: 00:00 MOUTH ONCE [place] 00 :00 DAILY Medical Branch butalbital- 2018-07 2020- No [id number] 1{tbl} Take 1 [facility] acetaminoph 2-08-06 6 tablet by it y of en-caff 00:00: 00:00 mouth [place] 50-325-40 00 :00 every 4 Medical mg tablet (four) Branch hours as needed for Pain (scale 4-6). butalbital- 2018-07 2020- No [id number] 1{tbl} Take 1 [facility] acetaminoph 2-02 08- 6 tablet by it y of en-caff 00:00: 00:00 mouth [place] 50-325-40 00 :00 every 4 Medical mg tablet (four) Branch hours as needed for Pain (scale 4-6). metoprolol 2018-07 Yes [id number] 25mg Take 1 U nivers tartrate 25 1-05 tablet by ity of mg tablet 00:00: mouth 2 [place] 00 (two) Medical times Branch daily. metoprolol 2018-07 Yes [id number] 25mg Take 1 U nivers tartrate 25 1-05 tablet by ity of mg tablet 00:00: mouth (two) Medical times Branch daily. metoprolol 2018-07 Yes [id number] 25mg Take 1 U nivers tartrate 25 1-05 tablet by ity of mg tablet 00:00: mouth (two) Medical times Branch daily. metoprolol 2018-07 Yes [id number] 25mg Take 1 U nivers tartrate 25 1-05 tablet by ity of mg tablet 00:00: mouth (two) Medical times Branch daily. metoprolol 2018-07 Yes [id number] 25mg Take 1 U nivers tartrate 25 1-05 tablet by ity of mg tablet 00:00: mouth (two) Medical times Branch daily. metoprolol 2018-07 Yes [id number] 25mg Take 1 U nivers tartrate 25 1-05 tablet by ity of mg tablet 00:00: mouth (two) Medical times Branch daily. metoprolol 2018-07 Yes [id number] 25mg Take 1 U nivers tartrate 25 1-05 tablet by ity of mg tablet 00:00: mouth (two) Medical times Branch daily. metoprolol 2018-07 Yes [id number] 25mg Take 1 U nivers tartrate 25 1-05 tablet by ity of mg tablet 00:00: mouth (two) Medical times Branch daily. metoprolol 2018-07 Yes [id number] 25mg Take 1 U nivers tartrate 25 1-05 tablet by ity of mg tablet 00:00: mouth (two) Medical times Branch daily. metoprolol 2018-07 Yes [id number] 25mg Take 1 U nivers tartrate 25 1-05 tablet by ity of mg tablet 00:00: mouth (two) Medical times Branch daily. metoprolol 2018-07 Yes [id number] 25mg Take 1 U nivers tartrate 25 1-05 tablet by ity of mg tablet 00:00: mouth (two) Medical times Branch daily. metoprolol 2018-07 Yes [id number] 25mg Take 1 U nivers tartrate 25 1-05 tablet by ity of mg tablet 00:00: mouth (two) Medical times Branch daily. metoprolol 2018-07 Yes [id number] 25mg Take 1 U nivers tartrate 25 1-05 tablet by ity of mg tablet 00:00: mouth (two) Medical times Branch daily. metoprolol 2018-07 Yes [id number] 25mg Take 1 U nivers tartrate 25 1-05 tablet by ity of mg tablet 00:00: mouth (two) Medical times Branch daily. metoprolol 2018-07 Yes [id number] 25mg Take 1 U nivers tartrate 25 1-05 tablet by ity of mg tablet 00:00: mouth (two) Medical times Branch daily. metoprolol 2018-07 Yes [id number] 25mg Take 1 U nivers tartrate 25 1-05 tablet by ity of mg tablet 00:00: mouth (two) Medical times Branch daily. metoprolol 2018-07 Yes [id number] 25mg Take 1 U nivers tartrate 25 1-05 tablet by ity of mg tablet 00:00: mouth (two) Medical times Branch daily. metoprolol 2018-07 Yes [id number] 25mg Take 1 U nivers tartrate 25 1-05 tablet by ity of mg tablet 00:00: mouth (two) Medical times Branch daily. metoprolol 2018-07 Yes [id number] 25mg Take 1 U nivers tartrate 25 1-05 tablet by ity of mg tablet 00:00: mouth (two) Medical times Branch daily. metoprolol 2018-07 Yes [id number] 25mg Take 1 U nivers tartrate 25 1-05 tablet by ity of mg tablet 00:00: mouth (two) Medical times Branch daily. metoprolol 2018-07 Yes [id number] 25mg Take 1 U nivers tartrate 25 1-05 tablet by ity of mg tablet 00:00: mouth (two) Medical times Branch daily. metoprolol 2018-07 Yes [id number] 25mg Take 1 U nivers tartrate 25 1-05 tablet by ity of mg tablet 00:00: mouth (two) Medical times Branch daily. metoprolol 2018-07 Yes [id number] 25mg Take 1 U nivers tartrate 25 1-05 tablet by ity of mg tablet 00:00: mouth (two) Medical times Branch daily. metoprolol 2018-07 Yes [id number] 25mg Take 1 U nivers tartrate 25 1-05 tablet by ity of mg tablet 00:00: mouth (two) Medical times Branch daily. metoprolol 2018-07 Yes [id number] 25mg Take 1 U nivers tartrate 25 1-05 tablet by ity of mg tablet 00:00: mouth (two) Medical times Branch daily. metoprolol 2018-07 Yes [id number] 25mg Take 1 U nivers tartrate 25 1-05 tablet by ity of mg tablet 00:00: mouth (two) Medical times Branch daily. metoprolol 2018-07 Yes [id number] 25mg Take 1 U nivers tartrate 25 1-05 tablet by ity of mg tablet 00:00: mouth (two) Medical times Branch daily. metoprolol 2018-07 Yes [id number] 25mg Take 1 U nivers tartrate 25 1-05 tablet by ity of mg tablet 00:00: mouth (two) Medical times Branch daily. metoprolol 2018-07 Yes [id number] 25mg Take 1 U nivers tartrate 25 1-05 tablet by ity of mg tablet 00:00: mouth (two) Medical times Branch daily. metoprolol 2018-07 Yes [id number] 25mg Take 1 U nivers tartrate 25 1-05 tablet by ity of mg tablet 00:00: mouth (two) Medical times Branch daily. metoprolol 2018-07 Yes [id number] 25mg Take 1 U nivers tartrate 25 1-05 tablet by ity of mg tablet 00:00: mouth (two) Medical times Branch daily. metoprolol 2018-07 Yes [id number] 25mg Take 1 U nivers tartrate 25 1-05 tablet by ity of mg tablet 00:00: mouth (two) Medical times Branch daily. metoprolol 2018-07 Yes [id number] 25mg Take 1 U nivers tartrate 25 1-05 tablet by ity of mg tablet 00:00: mouth (two) Medical times Branch daily. metoprolol 2018-07 Yes [id number] 25mg Take 1 U nivers tartrate 25 1-05 tablet by ity of mg tablet 00:00: mouth (two) Medical times Branch daily. metoprolol 2018-07 Yes [id number] 25mg Take 1 U nivers tartrate 25 1-05 tablet by ity of mg tablet 00:00: mouth (two) Medical times Branch daily. metoprolol 2018-07 Yes [id number] 25mg Take 1 U nivers tartrate 25 1-05 tablet by ity of mg tablet 00:00: mouth (two) Medical times Branch daily. metoprolol 2018-07 Yes [id number] 25mg Take 1 U nivers tartrate 25 1-05 tablet by ity of mg tablet 00:00: mouth (two) Medical times Branch daily. metoprolol 2018-07 Yes [id number] 25mg Take 1 U nivers tartrate 25 1-05 tablet by ity of mg tablet 00:00: mouth (two) Medical times Branch daily. metoprolol 2018-07 Yes [id number] 25mg Take 1 U nivers tartrate 25 1-05 tablet by ity of mg tablet 00:00: mouth (two) Medical times Branch daily. metoprolol 2018-07 Yes [id number] 25mg Take 1 U nivers tartrate 25 1-05 tablet by ity of mg tablet 00:00: mouth (two) Medical times Branch daily. metoprolol 2018-07 Yes [id number] 25mg Take 1 U nivers tartrate 25 1-05 tablet by ity of mg tablet 00:00: mouth (two) Medical times Branch daily. metoprolol 2018-07 Yes [id number] 25mg Take 1 U nivers tartrate 25 1-05 tablet by ity of mg tablet 00:00: mouth (two) Medical times Branch daily. metoprolol 2018-07 Yes [id number] 25mg Take 1 U nivers tartrate 25 1-05 tablet by ity of mg tablet 00:00: mouth (two) Medical times Branch daily. metoprolol 2018-07 Yes [id number] 25mg Take 1 U nivers tartrate 25 1-05 tablet by ity of mg tablet 00:00: mouth (two) Medical times Branch daily. metoprolol 2018-07 Yes [id number] 25mg Take 1 U nivers tartrate 25 1-05 tablet by ity of mg tablet 00:00: mouth (two) Medical times Branch daily. metoprolol 2018-07 Yes [id number] 25mg Take 1 U nivers tartrate 25 1-05 tablet by ity of mg tablet 00:00: mouth (two) Medical times Branch daily. metoprolol 2018-07 Yes [id number] 25mg Take 1 U nivers tartrate 25 1-05 tablet by ity of mg tablet 00:00: mouth (two) Medical times Branch daily. metoprolol 2018-07 Yes [id number] 25mg Take 1 U nivers tartrate 25 1-05 tablet by ity of mg tablet 00:00: mouth (two) Medical times Branch daily. metoprolol 2018-07 Yes [id number] 25mg Take 1 U nivers tartrate 25 1-05 tablet by ity of mg tablet 00:00: mouth (two) Medical times Branch daily. metoprolol 2018-07 Yes [id number] 25mg Take 1 U nivers tartrate 25 1-05 tablet by ity of mg tablet 00:00: mouth (two) Medical times Branch daily. metoprolol 2018-07 Yes [id number] 25mg Take 1 U nivers tartrate 25 1-05 tablet by ity of mg tablet 00:00: mouth (two) Medical times Branch daily. metoprolol 2018-07 Yes [id number] 25mg Take 1 U nivers tartrate 25 1-05 tablet by ity of mg tablet 00:00: mouth (two) Medical times Branch daily. metoprolol 2018-07 Yes 25mg Take 1 [facility] tartrate 1-05 tablet (25 st (LOPRESSOR) 00:00: mg total) [facility] 25 mg 00 by mouth. l tablet levothyroxi 2018-07 Yes [id number] 125ug Take 1 [facility] ne 125 mcg 1-04 tablet by ity of tablet 00:00: mouth [place] 00 every Medical morning. Branch levothyroxi 2018-07 Yes [id number] 125ug Take 1 [facility] ne 125 mcg 1-04 tablet by ity of tablet 00:00: mouth [place] 00 every Medical morning. Branch levothyroxi 2018-07 Yes [id number] 125ug Take 1 [facility] ne 125 mcg 1-04 tablet by ity of tablet 00:00: mouth [place] 00 every Medical morning. Branch levothyroxi 2018-07 Yes [id number] 125ug Take 1 [facility] ne 125 mcg 1-04 tablet by ity of tablet 00:00: mouth [place] 00 every Medical morning. Branch levothyroxi 2018-07 Yes [id number] 125ug Take 1 [facility] ne 125 mcg 1-04 tablet by ity of tablet 00:00: mouth [place] 00 every Medical morning. Branch levothyroxi 2018-07 Yes [id number] 125ug Take 1 [facility] ne 125 mcg 1-04 tablet by ity of tablet 00:00: mouth [place] 00 every Medical morning. Branch levothyroxi 2018-07 Yes [id number] 125ug Take 1 [facility] ne 125 mcg 1-04 tablet by ity of tablet 00:00: mouth [place] 00 every Medical morning. Branch levothyroxi 2018-07 Yes [id number] 125ug Take 1 [facility] ne 125 mcg 1-04 tablet by ity of tablet 00:00: mouth [place] 00 every Medical morning. Branch levothyroxi 2018-07 Yes [id number] 125ug Take 1 [facility] ne 125 mcg 1-04 tablet by ity of tablet 00:00: mouth [place] 00 every Medical morning. Branch levothyroxi 2018-07 Yes [id number] 125ug Take 1 [facility] ne 125 mcg 1-04 tablet by ity of tablet 00:00: mouth [place] 00 every Medical morning. Branch levothyroxi 2018-07 Yes [id number] 125ug Take 1 [facility] ne 125 mcg 1-04 tablet by ity of tablet 00:00: mouth [place] 00 every Medical morning. [place] levothyroxi 2018-07 Yes [id number] 125ug Take 1 [facility] ne 125 mcg 1-04 tablet by ity of tablet 00:00: mouth [place] 00 every Medical morning. Branch levothyroxi 2018-07 Yes [id number] 125ug Take 1 [facility] ne 125 mcg 1-04 tablet by ity of tablet 00:00: mouth [place] 00 every Medical morning. Branch levothyroxi 2018-07 Yes [id number] 125ug Take 1 [facility] ne 125 mcg 1-04 tablet by ity of tablet 00:00: mouth [place] 00 every Medical morning. [place] levothyroxi 2018-07 Yes [id number] 125ug Take 1 [facility] ne 125 mcg 1-04 tablet by ity of tablet 00:00: mouth [place] 00 every Medical morning. Branch levothyroxi 2018-07 Yes [id number] 125ug Take 1 [facility] ne 125 mcg 1-04 tablet by ity of tablet 00:00: mouth [place] 00 every Medical morning. [place] levothyroxi 2018-07 Yes [id number] 125ug Take 1 [facility] ne 125 mcg 1-04 tablet by ity of tablet 00:00: mouth [place] 00 every Medical morning. [place] levothyroxi 2018-07 Yes [id number] 125ug Take 1 [facility] ne 125 mcg 1-04 tablet by ity of tablet 00:00: mouth [place] 00 every Medical morning. [place] levothyroxi 2018-07 Yes [id number] 125ug Take 1 [facility] ne 125 mcg 1-04 tablet by ity of tablet 00:00: mouth [place] 00 every Medical morning. [place] levothyroxi 2018-07- No [id number] 125ug Take 1 [facility] ne 125 mcg 1-04 05-22 tablet by ity of tablet 00:00: 00:00 mouth [place] 00 :00 every Medical morning. [place] levothyroxi 2018-07- No [id number] 125ug Take 1 [facility] ne 125 mcg 1-04 05-22 tablet by ity of tablet 00:00: 00:00 mouth [place] 00 :00 every Medical morning. [place] fluticasone 2018-07 Yes [id number] 2{spray Use 2 [facility] propionate 0-24 } Sprays in ity of 50 00:00: each [place] mcg/actuati 00 nostril Medic al on nasal daily. [place] spray fluticasone 2018-07 Yes [id number] 2{spray Use 2 [facility] propionate 0-24 } Sprays in ity of 50 00:00: each [place] mcg/actuati 00 nostril Medic al on nasal daily. [place] spray fluticasone 2018-07 Yes [id number] 2{spray Use 2 [facility] propionate 0-24 } Sprays in ity of 50 00:00: each [place] mcg/actuati 00 nostril Medic al on nasal daily. [place] spray fluticasone 2018-07 Yes [id number] 2{spray Use 2 [facility] propionate 0-24 } Sprays in ity of 50 00:00: each [place] mcg/actuati 00 nostril Medic al on nasal daily. [place] spray fluticasone 2018-07 Yes [id number] 2{spray Use 2 [facility] propionate 0-24 } Sprays in ity of 50 00:00: each [place] mcg/actuati 00 nostril Medic al on nasal daily. Branch spray fluticasone 2018-07 Yes [id number] 2{spray Use 2 [facility] propionate 0-24 } Sprays in ity of 50 00:00: each [place] mcg/actuati 00 nostril Medic al on nasal daily. Branch spray fluticasone 2018-07 Yes [id number] 2{spray Use 2 [facility] propionate 0-24 } Sprays in ity of 50 00:00: each [place] mcg/actuati 00 nostril Medic al on nasal daily. Branch spray fluticasone 2018-07 Yes [id number] 2{spray Use 2 [facility] propionate 0-24 } Sprays in ity of 50 00:00: each [place] mcg/actuati 00 nostril Medic al on nasal daily. Branch spray fluticasone 2018-07 Yes [id number] 2{spray Use 2 [facility] propionate 0-24 } Sprays in ity of 50 00:00: each [place] mcg/actuati 00 nostril Medic al on nasal daily. Branch spray fluticasone 2018-07 Yes [id number] 2{spray Use 2 [facility] propionate 0-24 } Sprays in ity of 50 00:00: each [place] mcg/actuati 00 nostril Medic al on nasal daily. Branch spray fluticasone 2018-07 Yes [id number] 2{spray Use 2 [facility] propionate 0-24 } Sprays in ity of 50 00:00: each [place] mcg/actuati 00 nostril Medic al on nasal daily. Branch spray fluticasone 2018-07 Yes [id number] 2{spray Use 2 [facility] propionate 0-24 } Sprays in ity of 50 00:00: each [place] mcg/actuati 00 nostril Medic al on nasal daily. Branch spray fluticasone 2018-07 Yes [id number] 2{spray Use 2 [facility] propionate 0-24 } Sprays in ity of 50 00:00: each [place] mcg/actuati 00 nostril Medic al on nasal daily. Branch spray fluticasone 2018-07 Yes [id number] 2{spray Use 2 [facility] propionate 0-24 } Sprays in ity of 50 00:00: each [place] mcg/actuati 00 nostril Medic al on nasal daily. Branch spray fluticasone 2018-07 Yes [id number] 2{spray Use 2 [facility] propionate 0-24 } Sprays in ity of 50 00:00: each [place] mcg/actuati 00 nostril Medic al on nasal daily. Branch spray fluticasone 2018-07 Yes [id number] 2{spray Use 2 Univers propionate 0-24 } Sprays in ity of 50 00:00: each [place] mcg/actuati 00 nostril Medic al on nasal daily. Branch spray fluticasone 2018-07 Yes [id number] 2{spray Use 2 [facility] propionate 0-24 } Sprays in ity of 50 00:00: each [place] mcg/actuati 00 nostril Medic al on nasal daily. Branch spray fluticasone 2018-07 Yes [id number] 2{spray Use 2 [facility] propionate 0-24 } Sprays in ity of 50 00:00: each [place] mcg/actuati 00 nostril Medic al on nasal daily. Branch spray fluticasone 2018-07 Yes [id number] 2{spray Use 2 [facility] propionate 0-24 } Sprays in ity of 50 00:00: each [place] mcg/actuati 00 nostril Medic al on nasal daily. Branch spray fluticasone 2018-07 Yes [id number] 2{spray Use 2 [facility] propionate 0-24 } Sprays in ity of 50 00:00: each [place] mcg/actuati 00 nostril Medic al on nasal daily. Branch spray fluticasone 2018-07 Yes [id number] 2{spray Use 2 [facility] propionate 0-24 } Sprays in ity of 50 00:00: each [place] mcg/actuati 00 nostril Medic al on nasal daily. Branch spray fluticasone 2018-07 Yes [id number] 2{spray Use 2 [facility] propionate 0-24 } Sprays in ity of 50 00:00: each [place] mcg/actuati 00 nostril Medic al on nasal daily. Branch spray fluticasone 2018-07 Yes [id number] 2{spray Use 2 [facility] propionate 0-24 } Sprays in ity of 50 00:00: each [place] mcg/actuati 00 nostril Medic al on nasal daily. Branch spray fluticasone 2018-07 Yes [id number] 2{spray Use 2 [facility] propionate 0-24 } Sprays in ity of 50 00:00: each [place] mcg/actuati 00 nostril Medic al on nasal daily. Branch spray fluticasone 2018-07- No [id number] 2{spray Use 2 [facility] propionate 0-24 08-12 } Sprays in ity of 50 00:00: 00:00 each [place] mcg/actuati 00 :00 nostril Medic al on nasal daily. Branch spray turmeric Yes 500mg Take 500 Univ ers root 7-12 mg by ity of extract 500 18:28: mouth 2 Yuri as mg Cap 45 (two) Medical times Branch daily. Boswellia Yes 1000mg 1,000 mg. U nivers to 7-12 Takes ity of extract 18:28: 1000mg [place] (BOSWELLIA 45 daily in Medic al TO XT, pill form. Br anch [place], [facility] cholecalcif Yes 1000U Take 1,000 Univers phillip, 7-12 Units by ity of vitamin D3, 17:26: mouth [place] (VITAMIN 13 daily. Medical D3) 1,000 Branch unit tablet vitamin Yes 1000ug Take 1,000 Un darrel B-12 7-12 mcg by ity of (VITAMIN 17:26: mouth [place] B-12) 1,000 13 daily. Medica l mcg tablet Branch acetaminoph Yes 650mg Take 650 U nivers en (TYLENOL 7-12 mg by ity of ARTHRITIS 17:26: mouth [place] 650 13 needed for Medi santana mg CR Pain. Branch tablet aspirin 81 Yes [id number] 81mg Take 81 mg Univers mg chewable 7-12 by mouth ity of tablet 17:26: daily. [place] 13 Medical Branch fluticasone Yes [id number] 2{spray Use 2 [facility] propionate 7-12 } Sprays in ity of 50 00:00: each [place] mcg/actuati 00 nostril Medic al on nasal daily. Branch spray amLODIPine Yes [id number] 5mg Take 1 U nivers 5 mg tablet 7-12 tablet by ity of 00:00: mouth [place] 00 daily. Medical Branch metFORMIN Yes [id number] 1000mg Take 2 Univers 500 mg 7-10 tablets by ity of tablet 00:00: mouth 2 [place] 00 (two) Medical times Branch daily with meals. metFORMIN 2020- No [id number] 1000mg Take 2 Univers 500 mg 7-10 01-27 tablets by ity of tablet 00:00: 00:00 mouth 2 [place] 00 :00 (two) Medical times Branch daily with meals. metFORMIN 2020- No [id number] 1000mg Take 2 Univers 500 mg 7-10 -27 tablets by ity of tablet 00:00: 00:00 mouth 2 [place] 00 :00 (two) Medical times Branch daily with meals. metoprolol Yes [id number] 25mg Take 1 U nivers tartrate 25 3-25 tablet by ity of mg tablet 00:00: mouth 2 [place] 00 (two) Medical times Branch daily. levothyroxi 2017-07 Yes [id number] 125ug Take 1 Univers ne 125 mcg 0-02 tablet by ity of tablet 00:00: mouth [place] 00 every Medical morning. Branch glimepiride Yes [id number] 2mg Take 1 Univers 2 mg tablet 8-30 tablet by ity of 00:00: mouth 2 [place] 00 (two) Medical times Branch daily before breakfast and dinner. glimepiride 2020- No [id number] 2mg Take 1 Univers 2 mg tablet 8-08-06 tablet by it y of 00:00: 00:00 mouth 2 [place] 00 :00 (two) Medical times Branch daily before breakfast and dinner. glimepiride 2020- No [id number] 2mg Take 1 Univers 2 mg tablet 8-30 - tablet by it y of 00:00: 00:00 mouth 2 [place] 00 :00 (two) Medical times Branch daily before breakfast and dinner. acetaminoph Yes [id number] /2 - 1 Univers en-codeine 8-11 tab Every ity of 300-30 mg 00:00: 4hrs as [place] tablet 00 needed for Medical pain or Branch cough requiring narcotic hydralAZINE Yes [id number] 25mg Take 1 [facility] 25 mg 2-06 tablet by ity of tablet 00:00: mouth [place] 00 every 6 Medical (six) Branch hours. hydralAZINE Yes [id number] 25mg Take 1 Univers 25 mg 2-06 tablet by ity of tablet 00:00: mouth [place] 00 every 6 Medical (six) Branch hours. hydralAZINE Yes [id number] 25mg Take 1 [facility] 25 mg 2-06 tablet by ity of tablet 00:00: mouth [place] 00 every 6 Medical (six) Branch hours. hydralAZINE 2018-0 Yes [id number] 25mg Take 1 [facility] 25 mg 2-06 tablet by ity of tablet 00:00: mouth [place] 00 every 6 Medical (six) Branch hours. hydralAZINE 2018-0 Yes [id number] 25mg Take 1 [facility] 25 mg 2-06 tablet by ity of tablet 00:00: mouth [place] 00 every 6 Medical (six) Branch hours. hydralAZINE 2018-0 Yes [id number] 25mg Take 1 [facility] 25 mg 2-06 tablet by ity of tablet 00:00: mouth [place] 00 every 6 Medical (six) Branch hours. hydralAZINE 2018-0 Yes [id number] 25mg Take 1 [facility] 25 mg 2-06 tablet by ity of tablet 00:00: mouth [place] 00 every 6 Medical (six) Branch hours. hydralAZINE 2018-0 Yes [id number] 25mg Take 1 Univers 25 mg 2-06 tablet by ity of tablet 00:00: mouth [place] 00 every 6 Medical (six) Branch hours. hydralAZINE 2018-0 Yes [id number] 25mg Take 1 [facility] 25 mg 2-06 tablet by ity of tablet 00:00: mouth [place] 00 every 6 Medical (six) Branch hours. hydralAZINE 2018-0 Yes [id number] 25mg Take 1 Univers 25 mg 2-06 tablet by ity of tablet 00:00: mouth [place] 00 every 6 Medical (six) Branch hours. hydralAZINE 2018-0 Yes [id number] 25mg Take 1 Univers 25 mg 2-06 tablet by ity of tablet 00:00: mouth [place] 00 every 6 Medical (six) Branch hours. hydralAZINE 2018-0 Yes [id number] 25mg Take 1 Univers 25 mg 2-06 tablet by ity of tablet 00:00: mouth [place] 00 every 6 Medical (six) Branch hours. hydralAZINE 2018-0 Yes [id number] 25mg Take 1 Univers 25 mg 2-06 tablet by ity of tablet 00:00: mouth [place] 00 every 6 Medical (six) Branch hours. hydralAZINE 2018-0 Yes [id number] 25mg Take 1 Univers 25 mg 2-06 tablet by ity of tablet 00:00: mouth [place] 00 every 6 Medical (six) Branch hours. hydralAZINE 2018-0 Yes [id number] 25mg Take 1 [facility] 25 mg 2-06 tablet by ity of tablet 00:00: mouth [place] 00 every 6 Medical (six) Branch hours. hydralAZINE 2018-0 Yes [id number] 25mg Take 1 [facility] 25 mg 2-06 tablet by ity of tablet 00:00: mouth [place] 00 every 6 Medical (six) Branch hours. hydralAZINE 2018-0 Yes [id number] 25mg Take 1 Univers 25 mg 2-06 tablet by ity of tablet 00:00: mouth [place] 00 every 6 Medical (six) Branch hours. hydralAZINE 2018-0 Yes [id number] 25mg Take 1 [facility] 25 mg 2-06 tablet by ity of tablet 00:00: mouth [place] 00 every 6 Medical (six) Branch hours. hydralAZINE 2018-0 Yes [id number] 25mg Take 1 Univers 25 mg 2-06 tablet by ity of tablet 00:00: mouth [place] 00 every 6 Medical (six) Branch hours. hydralAZINE 2018-0 Yes [id number] 25mg Take 1 Univers 25 mg 2-06 tablet by ity of tablet 00:00: mouth [place] 00 every 6 Medical (six) Branch hours. hydralAZINE 2018-0 Yes [id number] 25mg Take 1 Univers 25 mg 2-06 tablet by ity of tablet 00:00: mouth [place] 00 every 6 Medical (six) Branch hours. hydralAZINE 2018-0 Yes [id number] 25mg Take 1 Univers 25 mg 2-06 tablet by ity of tablet 00:00: mouth [place] 00 every 6 Medical (six) Branch hours. hydralAZINE 2018-0 Yes [id number] 25mg Take 1 [facility] 25 mg 2-06 tablet by ity of tablet 00:00: mouth [place] 00 every 6 Medical (six) Branch hours. hydralAZINE 2018-0 Yes [id number] 25mg Take 1 Univers 25 mg 2-06 tablet by ity of tablet 00:00: mouth [place] 00 every 6 Medical (six) Branch hours. hydralAZINE 2018-0 Yes [id number] 25mg Take 1 [facility] 25 mg 2-06 tablet by ity of tablet 00:00: mouth [place] 00 every 6 Medical (six) Branch hours. hydralAZINE 2018-0 Yes [id number] 25mg Take 1 Univers 25 mg 2-06 tablet by ity of tablet 00:00: mouth [place] 00 every 6 Medical (six) Branch hours. hydralAZINE 2018-0 Yes [id number] 25mg Take 1 Univers 25 mg 2-06 tablet by ity of tablet 00:00: mouth [place] 00 every 6 Medical (six) Branch hours. hydralAZINE 2018-0 Yes [id number] 25mg Take 1 Univers 25 mg 2-06 tablet by ity of tablet 00:00: mouth [place] 00 every 6 Medical (six) Branch hours. hydralAZINE 2018-0 Yes [id number] 25mg Take 1 Univers 25 mg 2-06 tablet by ity of tablet 00:00: mouth [place] 00 every 6 Medical (six) Branch hours. hydralAZINE 2018-0 Yes [id number] 25mg Take 1 [facility] 25 mg 2-06 tablet by ity of tablet 00:00: mouth [place] 00 every 6 Medical (six) Branch hours. hydralAZINE 2018-0 Yes [id number] 25mg Take 1 Univers 25 mg 2-06 tablet by ity of tablet 00:00: mouth [place] 00 every 6 Medical (six) Branch hours. hydralAZINE 2018-0 Yes [id number] 25mg Take 1 Univers 25 mg 2-06 tablet by ity of tablet 00:00: mouth [place] 00 every 6 Medical (six) Branch hours. hydralAZINE 2018-0 Yes [id number] 25mg Take 1 [facility] 25 mg 2-06 tablet by ity of tablet 00:00: mouth [place] 00 every 6 Medical (six) Branch hours. hydralAZINE 2018-0 Yes [id number] 25mg Take 1 [facility] 25 mg 2-06 tablet by ity of tablet 00:00: mouth [place] 00 every 6 Medical (six) Branch hours. hydralAZINE 2018-0 Yes [id number] 25mg Take 1 [facility] 25 mg 2-06 tablet by ity of tablet 00:00: mouth [place] 00 every 6 Medical (six) Branch hours. hydralAZINE 2018-0 Yes [id number] 25mg Take 1 [facility] 25 mg 2-06 tablet by ity of tablet 00:00: mouth [place] 00 every 6 Medical (six) Branch hours. hydralAZINE 2018-0 Yes [id number] 25mg Take 1 [facility] 25 mg 2-06 tablet by ity of tablet 00:00: mouth [place] 00 every 6 Medical (six) Branch hours. hydralAZINE 2018-0 Yes [id number] 25mg Take 1 [facility] 25 mg 2-06 tablet by ity of tablet 00:00: mouth [place] 00 every 6 Medical (six) Branch hours. hydralAZINE 2018-0 Yes [id number] 25mg Take 1 [facility] 25 mg 2-06 tablet by ity of tablet 00:00: mouth [place] 00 every 6 Medical (six) Branch hours. hydralAZINE 2018-0 Yes [id number] 25mg Take 1 [facility] 25 mg 2-06 tablet by ity of tablet 00:00: mouth [place] 00 every 6 Medical (six) Branch hours. hydralAZINE 2018-0 Yes [id number] 25mg Take 1 [facility] 25 mg 2-06 tablet by ity of tablet 00:00: mouth [place] 00 every 6 Medical (six) Branch hours. hydralAZINE 2018-0 Yes [id number] 25mg Take 1 [facility] 25 mg 2-06 tablet by ity of tablet 00:00: mouth [place] 00 every 6 Medical (six) Branch hours. hydralAZINE 2018-0 Yes [id number] 25mg Take 1 [facility] 25 mg 2-06 tablet by ity of tablet 00:00: mouth [place] 00 every 6 Medical (six) Branch hours. hydralAZINE 2018-0 Yes [id number] 25mg Take 1 [facility] 25 mg 2-06 tablet by ity of tablet 00:00: mouth [place] 00 every 6 Medical (six) Branch hours. hydralAZINE 2018-0 Yes [id number] 25mg Take 1 [facility] 25 mg 2-06 tablet by ity of tablet 00:00: mouth [place] 00 every 6 Medical (six) Branch hours. hydralAZINE 2018-0 Yes [id number] 25mg Take 1 [facility] 25 mg 2-06 tablet by ity of tablet 00:00: mouth [place] 00 every 6 Medical (six) Branch hours. hydralAZINE 2018-0 Yes [id number] 25mg Take 1 [facility] 25 mg 2-06 tablet by ity of tablet 00:00: mouth [place] 00 every 6 Medical (six) Branch hours. hydralAZINE 2018-0 Yes [id number] 25mg Take 1 [facility] 25 mg 2-06 tablet by ity of tablet 00:00: mouth [place] 00 every 6 Medical (six) Branch hours. hydralAZINE 2018-0 Yes [id number] 25mg Take 1 [facility] 25 mg 2-06 tablet by ity of tablet 00:00: mouth [place] 00 every 6 Medical (six) Branch hours. hydralAZINE 2018-0 Yes [id number] 25mg Take 1 [facility] 25 mg 2-06 tablet by ity of tablet 00:00: mouth [place] 00 every 6 Medical (six) Branch hours. hydralAZINE 2018-0 Yes [id number] 25mg Take 1 [facility] 25 mg 2-06 tablet by ity of tablet 00:00: mouth [place] 00 every 6 Medical (six) Branch hours. hydralAZINE 2018-0 Yes [id number] 25mg Take 1 [facility] 25 mg 2-06 tablet by ity of tablet 00:00: mouth [place] 00 every 6 Medical (six) Branch hours. hydralAZINE 2018-0 Yes [id number] 25mg Take 1 [facility] 25 mg 2-06 tablet by ity of tablet 00:00: mouth [place] 00 every 6 Medical (six) Branch hours. Immunizations Ordered Filled Date Status Comments Source Immunization Name Immunization Name Td 2014-04-11 Completed University of 00:00:00 [facility] TD, NOS 2014-04-11 Completed University of 00:00:00 [facility] TD, NOS 2014-04-11 Completed University of 00:00:00 [facility] TD, NOS 2014-04-11 Completed University of 00:00:00 [facility] TD, NOS 2014-04-11 Completed University of 00:00:00 [place] [facility] TD, NOS 2014-04-11 Completed University of 00:00:00 [facility] TD, NOS 2014-04-11 Completed University of 00:00:00 [facility] Td 2014-04-11 Completed University of 00:00:00 [place] [facility] TD, NOS 2014-04-11 Completed [facility] of 00:00:00 [place] [facility] TD, NOS 2014-04-11 Completed University of 00:00:00 [place] [facility] TD, NOS 2014-04-11 Completed [facility] of 00:00:00 [place] [facility] TD, NOS 2014-04-11 Completed [facility] of 00:00:00 [place] [facility] TD, NOS 2014-04-11 Completed University of 00:00:00 [place] [facility] TD, NOS 2014-04-11 Completed University of 00:00:00 [place] [facility] Td 2014-04-11 Completed University of 00:00:00 [place] [facility] Td 2014-04-11 Completed University of 00:00:00 [place] [facility] Td 2014-04-11 Completed [facility] of 00:00:00 [place] [facility] Td 2014-04-11 Completed [facility] of 00:00:00 [place] [facility] Td 2014-04-11 Completed [facility] of 00:00:00 [place] [facility] Td 2014-04-11 Completed [facility] of 00:00:00 [place] [facility] Td 2014-04-11 Completed [facility] of 00:00:00 [place] [facility] Td 2014-04-11 Completed [facility] of 00:00:00 [place] [facility] Td 2014-04-11 Completed [facility] of 00:00:00 [place] [facility] Td 2014-04-11 Completed [facility] of 00:00:00 [place] [facility] Td 2014-04-11 Completed [facility] of 00:00:00 [place] [facility] Td 2014-04-11 Completed [facility] of 00:00:00 [place] [facility] Td 2014-04-11 Completed [facility] of 00:00:00 [place] [facility] Td 2014-04-11 Completed [facility] of 00:00:00 [place] [facility] Td 2014-04-11 Completed [facility] of 00:00:00 [place] [facility] Td 2014-04-11 Completed [facility] of 00:00:00 [place] [facility] Td 2014-04-11 Completed [facility] of 00:00:00 [place] [facility] Td 2014-04-11 Completed [facility] of 00:00:00 [place] [facility] Td 2014-04-11 Completed [facility] of 00:00:00 [place] [facility] Td 2014-04-11 Completed [facility] of 00:00:00 [place] [facility] Td 2014-04-11 Completed [facility] of 00:00:00 [place] [facility] Td 2014-04-11 Completed [facility] of 00:00:00 [place] [facility] Td 2014-04-11 Completed [facility] of 00:00:00 [place] [facility] Td 2014-04-11 Completed [facility] of 00:00:00 [place] [facility] Td 2014-04-11 Completed [facility] of 00:00:00 [place] [facility] TD, NOS 2014-04-11 Completed [facility] of 00:00:00 [place] [facility] TD, NOS 2014-04-11 Completed [facility] of 00:00:00 [place] [facility] TD, NOS 2014-04-11 Completed [facility] of 00:00:00 [place] [facility] TD, NOS 2014-04-11 Completed [facility] of 00:00:00 [place] [facility] TD, NOS 2014-04-11 Completed [facility] of 00:00:00 [place] [facility] Td 2014-04-11 Completed [facility] of 00:00:00 [place] [facility] TD, NOS 2014-04-11 Completed [facility] of 00:00:00 [place] [facility] TD, NOS 2014-04-11 Completed [facility] of 00:00:00 [place] [facility] TD, NOS 2014-04-11 Completed [facility] of 00:00:00 [place] [facility] TD, NOS 2014-04-11 Completed University of 00:00:00 [place] [facility] TD, NOS 2014-04-11 Completed University of 00:00:00 [facility] TD, NOS 2014-04-11 Completed University of 00:00:00 [facility] TD, NOS 2014-04-11 Completed University of 00:00:00 [facility] TD, NOS Unknown Completed [facility] Vital Signs Vital Name Observation Time Observation Value Comments Source Systolic blood 2022-05-01 15:00:00 138 mm[Hg] Univer sity of pressure [facility] Diastolic blood 2022-05-01 15:00:00 74 mm[Hg] Unive rsity of [facility] Heart rate 2022-05-01 15:00:00 66 /min [facility] Respiratory rate 2022-05-01 15:00:00 20 /min [facility] Oxygen saturation in 2022-05-01 15:00:00 94 /min [facility] Arterial blood by [facility] Pulse oximetry [place] Body temperature 2022-05-01 13:55:00 36.94 Swetha [facility] Body height 2022-05-01 13:55:00 154.9 cm [facility] Body weight 2022-05-01 13:55:00 71.215 kg [facility] BMI 2022-05-01 13:55:00 29.66 kg/m2 [facility] Systolic blood 2021-02-20 00:38:00 149 mm[Hg] Univer sity of [facility] Diastolic blood 2021-02-20 00:38:00 84 mm[Hg] Unive rsity of pressure [facility] Heart rate 2021-02-20 00:38:00 75 /min [facility] Body temperature 2021-02-20 00:38:00 37.94 Swetha [facility] 2021-02-20 00:38:00 154.9 cm [facility] Body weight 2021-02-20 00:38:00 68.493 kg Universi ty [facility] [place] [facility] BMI 2021-02-20 00:38:00 28.53 kg/m2 [facility] [place] [facility] Oxygen saturation in 2021-02-20 00:38:00 97 /min University of Arterial blood by [facility] Pulse oximetry Branch Body height 2019-08-06 21:07:00 154.9 cm [facility]i [facility] [place] [facility] Body weight 2019-08-06 21:07:00 72.122 kg [facility]i [facility] [place] [facility] BMI 2019-08-06 21:07:00 30.04 kg/m2 [facility] [place] [facility] Systolic blood 2019-09-16 02:00:00 141 mm[Hg] Univer sity of pressure [place] [facility] Diastolic blood 2019-09-16 02:00:00 68 mm[Hg] Unive rsity of pressure [place] [facility] Heart rate 2019-09-16 02:00:00 73 /min [facility] [place] [facility] Respiratory rate 2019-09-16 02:00:00 18 /min Univ ersity [facility] [place] [facility] Oxygen saturation in 2019-09-16 02:00:00 96 /min University of Arterial blood by [facility] Pulse oximetry Branch Body temperature 2019-09-15 22:26:00 36.94 Swetha Univ ersity [facility] [place] [facility] Body height 2019-09-15 22:26:00 154.9 cm [facility] [place] [facility] Body weight 2019-09-15 22:26:00 70.308 kg [facility] [place] [facility] BMI 2019-09-15 22:26:00 29.29 kg/m2 [facility] [place] [facility] Systolic blood 2019-09-03 14:45:00 125 mm[Hg] Univer sity of pressure [place] [facility] Diastolic blood 2019-09-03 14:45:00 71 mm[Hg] Unive rsity of pressure [place] [facility] Heart rate 2019-09-03 14:45:00 57 /min [facility] [place] [facility] Body temperature 2019-09-03 14:45:00 36.11 Swetha Univ ers[facility] [place] [facility] Respiratory rate 2019-09-03 14:45:00 18 /min Univ ersity [facility] [place] [facility] Body weight 2019-09-03 14:45:00 70.353 kg [facility]i [facility] [place] [facility] BMI 2019-09-03 14:45:00 29.31 kg/m2 Universi ty [facility] Oxygen saturation in 2019-09-03 14:45:00 93 /min University of Arterial blood by [facility] Pulse oximetry Branch Systolic blood 2019-08-06 13:17:00 148 mm[Hg] Univer sity of pressure [facility] Diastolic blood 2019-08-06 13:17:00 79 mm[Hg] Unive rsity of pressure [facility] Heart rate 2019-08-06 13:16:00 62 /min Universi ty [facility] Body temperature 2019-08-06 13:16:00 36.28 Swetha Univ ersity [facility] Respiratory rate 2019-08-06 13:16:00 18 /min [facility] 2019-08-06 13:16:00 154.9 cm Universi ty [facility] Body weight 2019-08-06 13:16:00 72.485 kg Universi ty [facility] BMI 2019-08-06 13:16:00 30.19 kg/m2 Universi [facility] Oxygen saturation in 2019-08-06 13:16:00 96 /min University of Arterial blood by [facility] Pulse oximetry Branch Body height 2022-11-15 15:12:00 154.9 cm [facility] Body weight 2022-11-15 15:12:00 73.029 kg [facility] BMI 2022-11-15 15:12:00 30.42 kg/m2 [facility] Systolic blood 2022-08-18 13:42:01 139 mm[Hg] Method ist [facility] pressure Diastolic blood 2022-08-18 13:42:01 66 mm[Hg] [facility] pressure Heart rate 2022-08-18 13:42:01 65 /min [facility] Body temperature 2022-08-18 13:42:01 36.56 Swetha [facility] Respiratory rate 2022-08-18 13:42:01 18 /min [facility] Oxygen saturation in 2022-08-18 13:42:01 98 /min [facility] Arterial blood by Pulse oximetry Procedures Procedure Date / Time Performing Clinician Source Performed XR KNEE 3 VW LEFT 2022-11-15 15:24:52 Williams Eubanks [facility] XR ANKLE 3+ VW LEFT 2022-10-04 21:05[facility] LEFT 2022-10-04 21:02:36 Williams Eubanks [facility] PATIENT FINANCIAL 2022-09-10 14:32:04 Doctor Unassigned, No [facility] POLICY Name Medical Branch POC GLUCOSE 2022-08-18 12:38:[facility] WITH PLATELET AND 2022-08-18 10:22:00 Williams Eubanks [facility] DIFFERENTIAL BASIC METABOLIC PANEL 2022-08-18 10:22:00 [facility] ESTIMATED GFR 2022-08-18 10:22:00 [facility] POC GLUCOSE 2022-08-18 02:49:00 [facility] POC GLUCOSE 2022-08-17 22:25:00 [facility] KNEE 1 OR 2 VW LEFT 2022-08-17 20[facility]55:00 [facility] 2022-08-17 19:32:00 [facility] 2022-08-17 18:21:00 [facility] ANESTHESIA SPINAL BLOCK 2022-08-17 17:07:[address] [facility] HC NERVE BLOCK INJ 2022-08-17 17:07:[address] [facility] FEMORAL SINGLE W IMG GUID Reji ARTHROPLASTY, KNEE, TOTAL 2022-08-17 16:56:00 [facility] TYPE AND SCREEN 2022-08-17 13:48:00 [facility] POC GLUCOSE 2022-08-17 13:48:00 [facility] CV STRESS TEST NUCLEAR 2022-08-16 16:50:00 MarErnie [facility] CARDIO NM MYOCARDIAL PERFUSION 2022-08-16 16:50:00 [facility] [place] [facility] REST STRESS 1 DAY TTE COMPLETE, WO 2022-08-16 14:20:00 Ernie Mar Rosendo [facility] CONTRAST, W DOPPLER ([id number]) URINE CULTURE 2022-08-12 17:42:00 [facility] METHICILLIN-RESISTANT 2022-08-12 15:39:00 [facility] STAPHYLOCOCCUS AUREUS Kireyian (MRSA), SHARON URINALYSIS SCREEN AND 2022-08-12 15:39:00 [facility] MICROSCOPY, WITH REFLEX Kireyian TO CULTURE HEMOGLOBIN A1C 2022-08-12 15:37:[address] [facility] ospiandie Chana VITAMIN D 1,25 DIHYDROXY 2022-08-12 15:37:00 [facility] LEVEL, SERUM [facility] C-REACTIVE PROTEIN 2022-08-12 15:37:00 [facility] Kireyian SEDIMENTATION RATE 2022-08-12 15:37:00 [facility] 2022-08-12 15:37:00 [facility] TIME (PTT) Kireyian TYPE AND SCREEN 2022-08-12 15:37:00 [facility] PROT[facility]OMBIN TIME WITH INR 2022-08-12 15:37:00 [facility] Kirian COMPREHENSIVE METABOLIC 2022-08-12 15:37:00 [facility] PANEL Kireyian CBC WITH PLATELET AND 2022-08-12 15:37:00 [facility] DIFFERENTIAL Kireyian ESTIMATED GFR 2022-08-12 15:37:00 [facility] QUALITATIVE 2022-08-12 15:36:[address] [facility] RT-PCR Antoinette REFERRAL- 2022-08-12 06:01:00 Doctor Unassigned, No Sailaja [facility] REQUEST/RESPONSE Name Medical Branch EKG-12 LEAD 2022-05-01 15:42:46 Rudy Lee [facility] CONSENT/REFUSAL FOR 2022-05-01 13:49:44 Doctor Unassigned, No [facility]AT[facility] Name Medical Branch ASSIGNMENT OF BENEFITS 2021-02-20 00:25:29 Doctor Unassigned, No [facility] Name [facility] POCT GLUCOSE (AUTOMATED) 2019-09-16 03:06:00 Deborah Jacobo [facility] LIPASE 2019-09-15 22:39:00 Donnell [facility] o [facility] COMP. METABOLIC PANEL 2019-09-15 22:39:00 Deborah Jacobo Becky [facility] ([id number]) Medical Branch CBC WITH DIFFERENTIAL 2019-09-15 22:39:00 Deborah Jacobo Becky [facility] URINALYSIS 2019-09-15 22:39:00 Donnell [facility] POCT GLUCOSE (AUTOMATED) 2019-09-15 22:30:00 eDborah Jacobo [facility] CONSENT/REFUSAL FOR 2019-09-15 22:15:54 Doctor Unassigned, No Un [facility] DIAGNOSIS AND TREATMENT Name [facility] POCT HEMOGLOBIN A1C TEST 2019-09-03 15:00:00 Dannielle Tong [facility] DEXA AXIAL (HIP AND 2019-08-13 15:38:03 Anabela Tong [facility] SPINE) Medical Branch BI SCREENING 2019-08-13 15:25:00 Anabela Tong [facility] TOMOSYNTHESIS BILATERAL Medical Branch VITAMIN B12, LEVEL 2019-08-06 14:17:00 Anabela Tong [facility] A Medical Branch FOLATE 2019-08-06 14:17:00 Anabela Tong [facility] A Medical [place] FREE T4 2019-08-06 14:17:00 Anabela Tong [facility] Medical [place] THYROID STIMULATING 2019-08-06 14:17:00 Anabela Tong [facility] HORMONE Medical Branch LIPID PANEL (26814)(TOTAL 2019-08-06 14:17:00 Jessy Tong [facility] CHOLESTEROL, Medical Branch TRIGLYCERIDES, HDL) GLYCOSYLATED HEMOGLOBIN 2019-08-06 14:17:00 Anabela Tong [facility] (A1C) [facility] VITAMIN D, 25-OH 2019-08-06 14:17:00 Anabela [facility] FREE T3 2019-08-06 14:17:00 Anabela Tong [facility] MICROALBUMIN URINE 2019-08-06 14:11:00 Anabela Tong [facility] AUTHORIZATION FOR RELEASE 2019-02-14 05:01:00 Doctor Unassigned, No [facility] Plan of Care Planned Activity Planned Date Details Comments Source Future Scheduled 2023-06-11 [facility] Test 02:22:27 malignant neoplasm of colon (procedure) [code = 013011094] Future Scheduled 2023-06-11 [facility] Test 02:22:27 malignant neoplasm of colon (procedure) [code = 784557908] Future Scheduled 2023-06-11 [facility] Test 02:22:27 malignant neoplasm of colon (procedure) [code = 883460813] Future Scheduled 2023-06-11 COVID-19 VACCINE (#1) [facility] Hospital Test 02:22:27 [code = COVID-19 VACCINE (#1)] Future Scheduled 2023-06-11 65+ P[facility]UMOCOCCAL [facility] Test 02:22:27 VACCINE (1 - PCV) [code = 65+ PNEUMOCOCCAL VACCINE (1 - PCV)] Future Scheduled 2023-06-11 DIABETES: RETINAL EYE [facility] Test 02:22:27 EXAM [code = DIABETES: RETINAL EYE EXAM] Future Scheduled 2023-06-11 DIABETIC FOOT EXAM [facility] Test 02:22:27 [code = DIABETIC FOOT EXAM] Future Scheduled 2023-06-11 URINE MICROALBUMIN [facility] Test 02:22:27 [code = URINE MICROALBUMIN] Future Scheduled 2023-06-11 [facility] Test 02:22:27 (procedure) [code = 703548559] Future Scheduled 2023-06-11 [facility] Test 02:22:27 malignant neoplasm of colon (procedure) [code = 246444545] Future Scheduled 2023-06-11 [facility] Test 02:22:27 malignant neoplasm of colon (procedure) [code = 087252788] Future Scheduled 2023-06-11 SHINGLES VACCINES (1 Met [facility] Test 02:22:27 of 2) [code = SHINGLES VACCINES (1 of 2)] Future Scheduled 2023-06-11 BREAST CANCER [facility] Test 02:22:27 SCREENING [code = BREAST CANCER SCREENING] Future Scheduled 2023-06-11 INFLUENZA VACCINE (#1) [facility] Test 02:22:27 [code = INFLUENZA VACCINE (#1)] Future Scheduled 2021-07-02 65+ PNEUMOCOCCAL [facility] Hospital Test 06:07:53 VACCINE (1 of 1 - PPSV23) [code = 65+ PNEUMOCOCCAL VACCINE (1 of 1 - PPSV23)] Future Scheduled 2021-07-02 INFLUENZA VACCINE Method [facility] Hospital Test 06:07:53 [code = INFLUENZA VACCINE] Future Scheduled 2021-07-02 COVID-19 VACCINE (1) Met [facility] Test 06:07:53 [code = COVID-19 VACCINE (1)] Future Scheduled 2021-07-02 Hepatitis C screening [facility] Test 06:07:53 (procedure) [code = 881863180] Future Scheduled 2021-07-02 BREAST CANCER [facility] Test 06:07:53 SCREENING [code = BREAST CANCER SCREENING] Future Scheduled 2021-07-02 COLONOSCOPY SCREENING [facility] Test 06:07:53 [code = COLONOSCOPY SCREENING] Future Scheduled 2021-07-02 SHINGLES VACCINES (#1) [facility] Test 06:07:53 [code = SHINGLES VACCINES (#1)] Encounters Start End Encounter Admission Attending Care Care Encounter Source Date/Time Date/Time Type Type Clinicians Facility Department ID 2021-05-07 Emergency [facility] [id number] Univers 13:09:53 ity of [facility] 2022-11-15 2022-11-15 Office Williams Eubanks 1.2.840.1 [id number] 21 [id number] Methodi 10:30:00 10:42:46 Visit Stephon 91199.1.[address] 3.430.2.7 Hospit a .3.692082 l .8 2022-11-15 2022-11-15 Travel 1.2.840.1 1.2.862.919 [id number] Methodi 00:00:00 00:00:[address] 3.430.2.7 0.2.7.3.698 spita .3.510994 084.8 l .8 2022-11-15 2022-11-15 Outpatient CHA WILLIAMS [facility] 205 [id number] [place] 00:00:00 00:00:[address] 2022-11-15 2022-11-15 Outpatient SOLITARIO EUBANKSY [facility] [id number] [place] 00:00:00 00:00:[address] 2022-11-05 2022-11-05 Ancillary Regina Nicholson [facility] 1.2.840 .114 [id number] [facility] 08:00:00 08:45:00 Visit Antoinette Murphy 350.1.13.10 priyanka Day [facility] 4.2.7.2.686 Thony de oliveira [facility] [phone] Vt dical [address] 2022-11-05 2022-11-05 [facility] [id number] [facility] 08:00:00 08:00:00 ANTOINETTE mathew [facility] 2022-11-03 2022-11-03 Orders Jai, 1.2.840.1 [id number] 69099 Methodi 00:00:00 00:00:00 Only Ksenia 58193.1.[address] 3.430.2.7 Hospit a .3.320314 l .8 2022-11-01 2022-11-01 Orders ChaSolitarioy 1.2.840.1 [id number] 21 [id number] Methodi 00:00:00 00:00:00 Only Stephon 57328.1.[address] 3.430.2.7 Hospit a .3.470783 l .8 2022-10-27 2022-10-27 Ancillary Regina Nicholson [facility] 1.2.840 .114 [id number] [facility] 08:00:00 08:45:00 Visit Antoinette Murphy 350.1.13.10 [place] [phone] Vt dical NAL 179 [facility] 2022-10-27 2022-10-27 Travel 1.2.840.1 1.2.407.427 0936 [id number] Methodi 00:00:00 00:00:[address] 3.430.2.7 0.2.7.3.698 Ho spita .3.169080 084.8 l .8 2022-10-25 2022-10-25 Ancillary Javier Nicholson [facility] 1.2.840. 114 [id number] Univers 10:15:00 11:00:00 Visit Antoinette Murphy 350.1.13.10 it[place] of [place] [id number] Vt dical NAL 179 [facility] 2022-10-22 2022-10-22 Ancillary Bharat Regina K [facility] 1.2.840 .114 [id number] Univers 13:00:00 14:56:17 Visit Antoinette Murphy 350.1.13.10 it[place] [id number] Vt dical NAL 179 [facility] 2022-10-21 2022-10-21 Williams Piña 1.2.840.1 [id number] 21 [id number] Methodi 00:00:00 00:00:00 Only Stephon 96766.1.[address] 3.430.2.7 Hospit a .3.968795 l .8 2022-10-19 2022-10-19 Refill Williams Eubanks 1.2.840.1 [id number] 21 [id number] Methodi 00:00:00 00:00:[address] 3.430.2.7 Hospit a .3.384654 l .8 2022-10-19 2022-10-19 Case Deepa [facility] 1.2.840.114 [id number] [facility] 00:00:00 00:00:00 Management Spike JOON 350.1.13.10 ity of [place] [id number] Vt dical NAL 179 [facility] 2022-10-15 2022-10-15 Ancillary Lata Jasso [facility] 1.2.840 .114 [id number] [facility] 09:30:00 09:55:17 Visit Antoinette Murphy 350.1.13.10 [place] [id number] Vt dical NAL 179 [facility] 2022-10-08 2022-10-08 Ancillary Regina Nicholson [facility] 1.2.840 .114 [id number] [facility] 13:45:00 14:30:00 Visit Antoinette Murphy 350.1.13.10 [place] [id number] Vt dical NAL 179 [facility] 2022-10-04 2022-10-04 Office Williams Eubanks 1.2.840.1 [id number] 21 [id number] Methodi 16:00:00 16:36:48 Visit Stephon 30987.1.[address] 3.430.2.7 Hospit a .3.312486 l .8 2022-10-04 2022-10-04 Travel 1.2.840.1 1.2.848.621 9513 [id number] Methodi 00:00:00 00:00:[address] 3.430.2.7 0.2.7.3.698 Ho spita .3.659919 084.8 l .8 2022-10-04 2022-10-04 Orders Vergara, 1.2.840.1 [id number] 66543 Methodi 00:00:00 00:00:00 Only Ksenia 74440.1.[address] 3.430.2.7 Hospit a .3.883449 l .8 2022-10-04 2022-10-04 Outpatient WILLIAMS EUBANKS [facility] 328 [id number] [place] 00:00:00 00:00:[address] 2022-10-04 2022-10-04 Outpatient WILLIAMS EUBANKS [facility] 522 [id number] [place] 00:00:00 00:00:[address] 2022-10-04 2022-10-04 Outpatient WILLIAMS EUBANKS [facility] 141 [id number] [place] 00:00:00 00:00:[address] 2022-10-01 2022-10-01 Ancillary Lata Jasso [facility] 1.2.840 .114 [id number] [facility] 08:45:00 09:30:00 Visit Antoinette Murphy 350.1.13.10 it[place] of [place] [phone] Me dical NAL 179 [facility] 2022-09-24 2022-09-24 True Nicholson [facility] 1.2.840.[id number] [place] [address] 00:00:00 00:00:00 Management Regina DUPREE 350.1.13.10 ity [place] [id number] Me dical NAL 179 [facility] 2022-09-21 2022-09-21 Orders Williams Eubanks 1.2.840.1 [id number] 21 [id number] Methodi 00:00:00 00:00:00 Only Stephon 12288.1.[address] 3.430.2.7 Hospit a .3.596093 l .8 2022-09-20 2022-09-20 Ancillary Javier Nicholson [facility] 1.2.840. 114 [id number] [facility] 16:00:00 16:45:00 Visit Antoinette Murphy 350.1.13.10 ity [place] [id number] Me dical NAL 179 [facility] 2022-09-17 2022-09-17 Ancillary Regina Nicholson [facility] 1.2.840 .114 [id number] Univers 08:45:00 09:30:00 Visit Antoinette Murphy 350.1.13.10 ity of [place] 4[place] [id number] Vt dical NAL 179 [facility] 2022-09-15 2022-09-15 Ancillary Regina Nicholson [facility] 1.2.840 .114 [id number] Univers 09:30:00 10:25:37 Visit Antoinette Murphy 350.1.13.10 it[place] [id number] Vt dical NAL 179 [facility] 2022-09-15 2022-09-15 Orders Williams Eubanks 1.2.840.1 [id number] 21 [id number] Methodi 00:00:00 00:00:00 Only Stephon 33864.1.[address] 3.430.2.7 Hospit a .3.023779 l .8 2022-09-10 2022-09-10 Ancillary Patti Moeller [facility] 1.2. 840.114 [id number] Univers 08:45:00 09:18:33 Visit Antoinette Murphy 350.1.13.10 it[place] of [place] 4[place] [id number] Vt dical NAL 179 [facility] 2022-09-10 2022-09-10 Orders Doctor NORTON 1.2.840.114 [id number] Univers 00:00:00 00:00:00 Only Unassigned, JORDEN 350.1.13.10 ity of [place] [facility] 4.2.7.2.686 Yuri as [phone] [address] 2022-09-08 2022-09-08 Outpatient R JEFFREY [facility] [id number] Univers 08:45:00 11:05:52 ANTOINETTE ity of [facility] 2022-09-08 2022-09-08 Ancillary Lata Jasso [facility] 1.2.840 .114 [id number] Univers 08:45:00 09:30:00 Visit Antoinette Murphy 350.1.13.10 ity of [place] [id number] Vt dical NAL 179 [facility] 2022-09-06 2022-09-06 Ancillary Shelia Joseph [facility] 1.2.840. 114 [id number] [facility] 07:15:00 08:25:43 Visit JeffreyAntoinette 350.1.13.10 it[place] of [place] 4.[place] [phone] Vt dical NAL 179 [facility] 2022-09-03 2022-09-03 Ancillary Regina Nicholson [place] 1.2.840 .114 [id number] [facility] 13:45:00 14:30:00 Visit JeffreyAntoinette 350.1.13.10 ity of [place] 4[place].2.[place] [id number] Vt dical NAL 179 [facility] 2022-09-01 2022-09-01 Ancillary Regina Nicholson [place] 1.2.840 .114 [id number] [facility] 13:00:00 13:45:00 Visit Ana Murphymeg Rasheed LUTHERJACK 350.1.13.10 ity of [place] 4.2.[place].2.[place] [phone] Vt dical NAL 179 [facility] 2022-08-31 2022-08-31 Office Joya 1.2.840.1 [id number] Methodi 13:30:00 13:30:00 Visit Ashley 05056.1.[address] [facility] 3.430.2.7 Hospi ta .3.269568 l .8 2022-08-31 2022-08-31 Orders Williams Eubanks 1.2.840.1 [id number] Methodi 00:00:00 00:00:00 Only Stephon 44835.1.[address] 3.430.2.7 Hospit a .3.605934 l .8 2022-08-31 2022-08-31 Travel 1.2.840.1 1.2.831.196 2250 002561 Methodi 00:00:00 00:00:[address] 3.430.2.7 0.2.7.3.698 Ho spita .3.771323 084.8 l .8 2022-08-31 2022-08-31 Outpatient [facility] [id number] 262 [place] 00:00:00 00:00:[address] 2022-08-30 2022-08-30 Ancillary Javier Nicholson [facility] 1.2.840. 114 [id number] [facility] 13:00:00 15:11:44 Visit Antoinette Murphy 350.1.13.10 it[place] of [place] 4[place] [id number] Vt dical NAL 179 [facility] 2022-08-27 2022-08-27 Ancillary Regina Nicholson [facility] 1.2.840 .114 [id number] Univers 15:15:00 16:00:00 Visit Antoinette Murphy 350.1.13.10 ity of [place] 4[place] [id number] Vt dical NAL 179 [facility] 2022-08-25 2022-08-25 Ancillary JassoShawnae [facility] 1.2.840 .114 [id number] Univers 14:30:00 15:15:00 Visit Antoinette Murphy 350.1.13.10 ity of [place] 4[place].2.[place] [id number] Vt dical NAL 179 [facility] 2022-08-23 2022-08-23 Ancillary Joseph Esperanzavinny Holman [facility] 1.2.840. 114 [id number] Univers 07:15:00 09:46:08 Visit Antoinette Murphy 350.1.13.10 ity of [place] 4[place] [id number] Vt dical NAL 179 [facility] 2022-08-19 2022-08-19 Outpatient R JEFFREY [facility] [id number] Univers 15:15:00 16:44:46 ANTOINETTE ity of [facility] 2022-08-19 2022-08-19 Ancillary Nura Sarahi Hanks [facility] 1 .2.840.114 [id number] [facility] 15:15:00 16:44:46 Visit Antoinette Murphy 350.1.13.10 ity [facility] 4.2.7.2.[place] [id number] [facility]ical [facility] 179 [facility] 2022-08-17 2022-08-18 Hospital Williams Eubanks 1.2.840.1 [id number] 2 [id number] Methodi 06:56:00 10:36:00 Encounter Stephon 95151.1.[address] 3.430.2.7 Hospit a .3.378341 l .8 2022-08-18 2022-08-18 Patient Doctor ERROL 1.2.840.[id number] [place] [address] 00:00:00 00:00:00 Secure Msg Unassigned, JORDEN 350.1.13.10 ity of [facility] 4.2.7.2.686 Yuri as [id number] [address] 2022-08-17 2022-08-18 Outpatient WILLIAMS EUBANKS [facility] [id number] [place] 00:00:00 00:00:[address] 2022-08-17 2022-08-17 Anesthesia Jose Francis 1.2.840.1 [id number] Methodi 10:56:00 13:21:00 Event Alejandrina Fry 16514.1.[address] 3.430.2.7 Hospit a .3.241813 l .8 2022-08-17 2022-08-17 Surgery Williams Eubanks 1.2.840.1 [id number] 21 [id number] Methodi 10:15:00 12:15:[address] 3.430.2.7 Hospit a .3.669597 l .8 2022-08-16 2022-08-16 [facility] Ernie Mar 1.2.840.1 [id number] Methodi 07:10:45 23:59:00 Encounter Hardeep Calero 29809.1.[address] 3.430.2.7 Hospit a .3.742813 l .8 2022-08-16 2022-08-16 [facility], 1.2.840.1 [id number] Methodi 07:10:34 23:59:00 Encounter Ernie Robbins 65325.1.[address] 3.430.2.7 Hospit a .3.113668 l .8 2022-08-16 2022-08-16 [facility], 1.2.840.1 [id number] Methodi 06:44:15 07:09:00 Encounter Ernie Robbins 44172.1.[address] 3.430.2.7 Hospit a .3.300403 l .8 2022-08-16 2022-08-16 [facility], 1.2.840.1 [id number] 25337 Methodi 06:43:56 06:43:56 Encounter Ernie Robbins 93614.1.[address] 3.430.2.7 Hospit a .3.854851 l .8 2022-08-16 2022-08-16 [facility], 1.2.840.1 [id number] 80027 Methodi 06:43:31 06:43:31 Encounter Ernie Robbins 41327.1.[address] 3.430.2.7 Hospit a .3.928789 l .8 2022-08-16 2022-08-16 [facility], 1.2.840.1 [id number] 05514 Methodi 06:43:12 06:43:12 Encounter Ernie Robbins 21298.1.[address] 3.430.2.7 Hospit a .3.827344 l .8 2022-08-16 2022-08-16 [facility] [id number] [address] [place] [address] 00:00:00 00:00:00 ERNIE [address] 2022-08-16 2022-08-16 Outpatient [facility] [id number] [place] [address] 00:00:00 00:00:00 ERNIE [address] 2022-08-16 2022-08-16 Outpatient MAR, [facility] [id number] 171 [place] 00:00:00 00:00:00 ERNIE [address] 2022-08-16 2022-08-16 Outpatient MAR, [facility] [id number] 171 [place] 00:00:00 00:00:00 ERNIE [address] 2022-08-16 2022-08-16 Outpatient MAR, [facility] [id number] 171 [place] 00:00:00 00:00:00 ERNIE [address] 2022-08-16 2022-08-16 Telephone Aguilaru, 1.2.840.1 [id number] 2100 [id number] Methodi 00:00:00 00:00:[address] Kireyian 3.430.2.7 Hospi ta .3.701370 l .8 2022-08-16 2022-08-16 Orders Jai, 1.2.840.1 [id number] 27752 Methodi 00:00:00 00:00:00 Only Ksenia 41489.1.[address] 3.430.2.7 Hospit a .3.491877 l .8 2022-08-16 2022-08-16 Travel 1.2.840.1 1.2.059.091 6684 [id number] Methodi 00:00:00 00:00:[address] 3.430.2.7 0.2.7.3.698 Ho spita .3.894199 084.8 l .8 2022-08-16 2022-08-16 Outpatient MAR, [facility] [id number] 171 [place] 00:00:00 00:00:00 ERNIE [address] 2022-08-13 2022-08-13 Orders Payamiu, 1.2.840.1 [id number] Methodi 00:00:00 00:00:00 Only Ashley 85547.1.[address] [place] 3.430.2.7 Hospi ta .3.316479 l .8 2022-08-13 2022-08-13 Transcribe Tran, 1.2.840.1 [id number] 639 [id number] Methodi 00:00:00 00:00:00 Orders Ernie Robbins 33769.1.[address] 3.430.2.7 Hospit a .3.969825 l .8 2022-08-13 2022-08-13 Transcribe Abdias, 1.2.840.1 [id number] 2 [id number] Methodi 00:00:00 00:00:00 Orders Hardeep 03225.1.[address] 3.430.2.7 Hospit a .3.325338 l .8 2022-08-13 2022-08-13 Orders Aguilarjose, 1.2.840.1 [id number] 4322 Methodi 00:00:00 00:00:00 Only Ashley 92081.1.[address] [place]ire[place]ian 3.430.2.7 Hospi ta .3.466102 l .8 2022-08-12 2022-08-12 Office Joya, 1.2.840.1 [id number] 0086 Methodi 14:45:00 15:25:57 Visit Ashley 65383.1.[address] [place] 3.430.2.7 Hospi ta .3.808710 l .8 2022-08-12 2022-08-12 Pre-Admiss Williams Eubanks 1.2.840.1 [id number] Methodi 09:00:00 09:10:46 ion Stephon 52727.1.[address] Testing 3.430.2.7 Hospit a .3.813455 l .8 2022-08-12 2022-08-12 Orders Jai, 1.2.840.1 [id number] 78794 Methodi 00:00:00 00:00:00 Only Ksenia 95246.1.[address] 3.430.2.7 Hospit a .3.411036 l .8 2022-08-12 2022-08-12 Outpatient WILLIAMS EUBANKS [facility] 860 [id number] [place] 00:00:00 00:00:[address] 2022-08-12 2022-08-12 Outpatient [facility] [id number] [place] 00:00:00 00:00:00 083 Method i 2022-08-12 2022-08-12 Outpatient [facility] [id number] [place] 00:00:00 00:00:00 085 Method i 2022-08-12 2022-08-12 Orders Doctor ERROL 1.2.840.114 [id number] [facility] 00:00:00 00:00:00 Only Unassigned, JORDEN 350.1.13.10 ity [facility] 4.2.7.2.686 Yuri [id number] Medi santana 009 Branch 2022-07-01 2022-07-01 Documentat Provider, 1.2.840.1 [id number] Methodi 00:00:00 00:00:00 ion Unknown 34703.1.[address] 3.430.2.7 Hospit a .3.823612 l .8 2022-06-30 2022-06-30 Prep for Travis, 1.2.840.1 [id number] 96691 Methodi 00:00:00 00:00:00 Surgery Alma 23685.1.[address] 3.430.2.7 Hospit a .3.729239 l .8 2022-05-01 2022-05-01 Emergency X CHAITANYA [facility] ERT [id number] Univers 08:56:00 10:52:00 RUDY mathew [facility] 2022-05-01 2022-05-01 [facility] 1.2.628.501 [id number] Univers 08:56:00 10:52:00 Rudy DUPREE 350.1.13.10 i ty [facility] 4.2.7.2.686 [facility] [id number] Medi santana 084 Branch 2022-03-22 2022-03-22 Outpatient WILLIAMS EUBANKS [facility] [id number] [place] 00:00:00 00:00:[address] 2022-03-22 2022-03-22 Outpatient WILLIAMS EUBANKS [facility] [id number] [place] 00:00:00 00:00:[address] 2021-02-23 2021-02-23 Outpatient R BRADY [facility] [id number] Univers 17:00:00 17:00:00 MAURICE ity o f [facility] 2021-02-23 2021-02-23 Telephone ERROL Claros 1.2.882.790 [id number] Univers 00:00:00 00:00:00 Yadira JORDEN 350.1.13.10 it y of [facility] 4.2.7.2.686 Yuri as [id number] [facility] [address] [place] 2021-02-22 2021-02-22 Outpatient R KATHERINE [facility] [id number] Univers 11:00:00 11:00:00 GARRETT vinny [facility] 2021-02-19 2021-02-19 Urgent Irlanda Eid [facility] 1.2.840.114 [id number] Univers 19:25:57 19:45:57 [facility] 350.1.13.10 [facility] [place] 4.2.7.2.686 Yuri as Professio [phone] Vt dical nal [address] [place] [address] 2021-02-19 2021-02-19 Outpatient R RAE [facility] [id number] Univers 19:40:00 19:40:00 [facility] 2021-02-19 2021-02-19 Orders Doctor ERROL 1.2.840.114 [id number] Univers 00:00:00 00:00:00 Only Unassigned, JORDEN 350.1.13.10 ity of [place] [facility] 4.2.7.2.686 Yuri as [phone] [facility] [address] 2020-09-15 2020-09-15 Patient Salvatore [facility] 1.2.840.114 [id number] Univers 00:00:00 00:00:00 Outreach Geraldo PRIMARY 350.1.13.10 [place] [facility] [place]2.7.2.[place] [phone] Vt dical 388 [address] 2019-08-06 2019-12-24 Office Jeffrey [facility] 1.2.135.238 [id number] [facility] 14:59:36 16:24:57 Visit Antoinette [facility] 350.1.13.10 it y of Surgical 4.2.7.2.686 Yuri as Specialti [phone] [facility] 198 [facility] 2019-12-03 2019-12-03 [facility] 1.2.840.114 [id number] Univers 00:00:00 00:00:00 Anabela [place] 350.1.13.10 [place] [phone] [facility] 231 [facility] 2019-11-28 2019-11-28 Refill Tong, [facility] 1.2.840.114 [id number] Univers 00:00:00 00:00:00 Anabela [place] 350.1.13.10 [place] [phone] [facility] 231 [facility] 2019-11-08 2019-11-08 [facility] 1.2.840.114 [id number] Univers 00:00:00 00:00:00 Anabela Dupree 350.1.13.10 [place] [phone] [address] 2019-11-03 2019-11-03 [facility] 1..840.114 [id number] Univers 00:00:00 00:00:00 Anabela Dupree 350.1.13.10 [place] [phone] [address] 2019-10-02 2019-10-02 Outpatient R ALYCIA [facility] [id number] Univers 07:20:00 07:20:00 ANABELA ity of [facility] 2019-09-15 2019-09-15 Emergency Deborah Jacobo [facility] 1..840.114 [id number] Univers 16:30:47 20:11:00 Becky Dupree 350.1.13.10 i [place].2.[place] [phone] [facility] [address] [place] 2019-09-14 2019-09-14 Outpatient R KIRILL [facility] [id number] Univers 09:20:00 09:20:00 LM ity [facility] 2019-09-03 2019-09-06 Office [facility] 1.2.840.114 [id number] Univers 08:09:10 10:13:45 Visit Anabela Dupree 350.1.13.10 [place] [phone] [address] 2019-09-05 2019-09-05 [facility] 1.2.840.114 [id number] [facility] 00:00:00 00:00:00 Anabela Dupree 350.1.13.10 [place].2.[place] [phone] [address] 2019-09-03 2019-09-03 Outpatient [facility] [id number] Univers 15:40:00 15:40:00 [facility]-09-03 2019-09-03 [facility] 1.2.840.114 [id number] Univers 00:00:00 00:00:00 Anabela Dupree 350.1.13.10 [place] [phone] [address] 2019-08-27 2019-08-27 Case [facility] 1.2.840.114 [id number] Univers 00:00:00 00:00:00 Management Anabela Dupree 350.1.13.10 [place].2.[place] [phone] [address] 2019-08-27 2019-08-27 [facility] 1.2.840.114 [id number] Univers 00:00:00 00:00:00 Anabela Dupree 350.1.13.10 [place].2.[place] [phone] Vt dical nal 231 [facility] 2019-08-13 2019-08-13 [facility] 1.2.840.114 [id number] Univers 08:53:00 23:59:00 Encounter Anabela Dupree 350.1.13.10 [place].2.[place] [phone] [address] 2019-08-13 2019-08-13 [facility] 1.2.840.114 [id number] Univers 08:51:00 08:52:00 Encounter Anabela [place] 350.1.13.10 [place].2.686 [place] [phone] [address] 2019-08-06 2019-08-06 Outpatient R [facility] [id number] Univers 15:13:08 23:59:00 ANTOINETTE ity of [facility] 2019-08-06 2019-08-06 [facility] 1.2.840.114 [id number] Univers 15:13:00 23:59:00 Encounter [facility] 350.1.13.10 ity of Surgical 4.2.7.2.686 Yuri as Specialti [phone] Vt dical es 809 [facility] 2019-08-06 2019-08-06 Hi Ranger Operator 2, Adc Lab [facility] 1.2.840.114 [id number] Univers 08:09:33 08:24:33 Visit Anabela Tong 350.1. 13.10 [place] [phone] Vt dical nal 353 [facility] 2019-08-06 2019-08-06 Office [facility] 1.2.840.114 [id number] Univers 07:04:45 08:02:14 Visit Anabela Dupree 350.1.13.10 [place]2.[place] [phone] Vt dical [address] 2019-07-17 2019-07-17 Patient Doctor ERROL 1.2.840.114 [id number] Univers 00:00:00 00:00:00 Secure Msg Unassigned, JORDEN 350.1.13.10 ity of [place] [facility] 4.2.7.2.686 Yuri as [phone] [address] 2019-06-17 2019-06-17 Emergency X TINOCO, [facility] ERT [id number] Univers 13:40:13 15:24:00 MEKA ity [facility] 2019-02-14 2019-02-14 Orders Doctor ERROL Cabrera.2.840.114 [id number] Univers 00:00:00 00:00:00 Only Unassigned, JORDEN 350.1.13.10 ity of [place] [facility] 4.2.7.2.686 Yuri as [phone] [address] Results Test Description Test Time Test Comments Results Result Comments Source Surgical pathology request 2022-08-23 20:42:14 Test Item Value Reference Range Interpretation [facility] number (test code = 5908406) [id number] Surgical pathology report (test code = See link below for PDF Lab R eport 4931) Result status (test code = 4664756) This is Final Report for [id number] [facility] [id number] 12:44:00 Test Item Value Reference Range Interpretation Comments POC glucose (test code 211 mg/dL 65-99 H [facility] Name: Barron = [id number]) Juan R ID : [id number] Lab Interpretation Abnormal (test code = 59580-3) [facility] Or 2 Vw [id number] 20:58:56EXAMINATION: XR KNEE 1 OR 2 VW LEFT CLINICAL HISTORY: 72 years Female Knee replacement asymptomatic f ollow up, total knee arthoplasty COMPARISON: Knee radiographs March 22, 2022. IMPRESSION: Patient is status post left total knee arthroplasty. Hardware intact. No periprosthetic fracture or dislocation. Expected postoperative changes in the soft tissues. Vascular calcifications. [id number] Dictated and approved by vice president for philanthropy/fellow: Yoko Guzman M.D. I, Timothy Skinner, personally reviewed the images and resident's/fellow's findings and agree with the final report.[id number] 17:07:58Jose Francis MD 08/17/2022 11:08 AMSpinal Block Patient Location: [place] for Block: primary anesthetic Performed by: anesthesiologistAnesthesiologist: Jose Francis, MDAuthorized by: Jose Francis MD Preprocedure: patient identified, IV checked, site and side verified, risks and benefits discussed, procedure verified, surgical consent complete, patient posi tion confirmed, monitors and equipment checked, pre-op evaluation complete and timeout performed prior to procedure Spinal Block: Patient Position: Sitting Prep: ChloraPrep Monitoring: Blood pressure monitoring, continuous pulse oximetry and heart rate Approach: Midline Interspace: L3-4Injection Technique: Single injectionNeedle: Needle Type: Pencil-tip Needle Gauge: 25 GCatheter Type: Closed endAssessment: Block assessment: No apparent complications and patient tolerated procedure well Post procedure: Patient returned to supine position with left lateral displacement, sterile dressing applied and patient returned to supine positionPeripheral [id number] 17:07:47Jose Francis MD 08/17/2022 11:07 AMPeripheral Block [facility] Block: at surgeon's request, post-op pain management Performed by: anesthesiologistAnesthesiologist: Jose Francis, ADRIANuthorized by: Jose Francis MD Preprocedure: patient identified, IV checked, site and side verified, risks and benefits discussed, procedure verified, surgical consent complete, patient position confirmed, monitors and equipment checked, pre-op evaluation complete, site marked, timeout performed prior to procedure and coagulation status reviewed Peripheral Nerve Block: Patient Position: Supine Prep: alcohol swabs Monitoring: Blood pressure monitoring, continuous pulse oximetry and heart rate Block Type: Adductor canalLaterality: LeftInjection Technique: Single injectionProcedures: ultrasound guided Ultrasound documentation: Images saved on portable mediaLocal Infiltration (See MAR for details): RopivacaineNeedle: Needle Type: Pajunk Needle Gauge: 22 G Needle Length: 4 inAssessment: Injection Assessment: Visualized needle/local anesthetic surrounding nerve, visualized pertinent vascular structures and nerves, needle tip visualized at all timesduring injection of medication, intermittent aspiration during local anesthetic administration and no symptoms of intraneural/intravenous injection Paresthesia Pain: None Heart Rate Change: No Slow Fractionated Injection: Yes Block outcome: No apparent complications, patient comfortable and patient tolerated procedure wellTransthoracic Echocardiogram Complete, (w Contrast, Strain and 3D if needed)2022-08-17 04:04:17 Test Item Value Reference Interpretation Comments Range EF (test code = 59 % 54-74 7020491250) LV EF,BP (test code 63.25 % = 6033428738) IVS,d (test code = 1.05 cm 0.6-0.9 A 3860574553) IVS s 2D (test code 1.42 cm = 7966308466) LVPWD,d (test code = 1.19 cm 0.60-1.19 3644292773) LVPW s PLAX (test 1.38 cm code = 2300443942) LV,s (test code = 2.77 cm 3954401240) LVOT Diam,S (test 1.88 cm code = 5172780615) LV RANDOLPH VOL (test 70.45 ml 46-106 code = 5996527111) LV SYS VOL (test 28.66 ml 14-42 code = 7965030819) LV Vol,d A2C (test 47.53 mL code = 6062905510) LV Vol,s A2C (test 15.96 mL code = 4969967420) LV Vol,d A4C (test 55.07 ml code = 5437026937) LV Vol,s A4C (test 22.50 ml code = 6072912588) MV Peak E Pete (test 0.63 m/s code = 5100947833) MV Peak A Pete (test 0.85 m/s code = 8449757968) E/A ratio (test code 0.74 <=0.8 = 8313388717) E wave decelartion 125.84 See_Comment A [Automat ed time (test code = message] T he 1882583410) system which generated this result transmitted reference range : 200 msec. The reference range was not used to interpret this result as normal/abnormal . LV Systolic Volume 9.28 mL/m2 8-24 Index (test code = 6582214751) LV Diastolic Volume 27.63 mL/m2 29-61 A Index (test code = 2234853985) LV,d (test code = 4.01 cm 5151503771) IVS/LVPW,2D (test 0.88 code = 2432468311) LV EF,2D (test code 67.23 % = 4782053423) LV FS Cube 2D (test 31.05 code = 9430491875) LV FS Teich 2D (test 31.05 code = 5355249434) LV SI Teich 2D (test 24.33 ml/m2 code = 3330256439) LV SV Teich 2D (test 41.79 ml code = 3838814273) LV Vol s Teich PSAX 28.66 ml (test code = 4552357796) LVOT stroke volume 0.53 cm3 (test code = 1150716872) LA Vol MOD A4C (test 33.60 ml code = 8768290931) LA Ao Ratio Mmode 1.57 (test code = 6295520655) LVOT area (test code 2.77 cm2 = 0584524797) LVOT Vmax (test code 0.95 m/s = 5712713744) AoV Mean PG (test 3.13 See_Comment [Automate d code = 1811907522) message] The system which generated this result transmitted reference range : 20 mmHg. The reference range was not used to interpret this result as normal/abnormal . AoV Peak PG (test 5.56 mmHg code = 0795674191) AV LVOT peak 3.58 mmHg gradient (test code = 4035097383) AoV area i VTI BSA 1.16 cm2/m2 >=0.85 Eldora (test code = 9942753724) AoV Area, Vmax (test 2.24 cm2 >=1.5 code = 9177193867) LVOT VTI (CM) (test 19.00 cm code = 9452331379) AoV Vmax (test code 1.20 m/s = 4305702038) AoV Vmn (test code = 0.86 m/s 6769460628) AoV Area, VTI (test 2.00 cm2 code = 8196471521) LVOT SI (test code = 31.50 ml/m2 0359425675) AoV Cusp sep (test 1.80 code = 7500165661) Velocity Ratio 0.79 m/s (V1/V2) (test code = 4689) MR peak grad (test 85.06 mmHg code = 9541508895) MV stenosis pressure 36.49 ms <=150 1/2 time (test code = 0571728366) MV E A ratio (test 0.74 code = 3612559123) MV valve area p 1/2 6.03 cm2 method (test code = 9081393009) PV AT (test code = 89.97 msec 8243368613) Ao root annulus 2.64 cm (test code = 6010480549) BSA (test code = 1.72 m2 2205596211) BSA Rudd (test code 1.82 m2 = 7329940610) BSA Haycock (test 1.79 m2 code = 5075844419) MV Decel slope (test 5.02 m/s2 code = 2488693921) LVPW pct thck PLAX 15.95 % (test code = 5277646875) LV vol s cube 2D 21.15 ml (test code = 8383770798) LV vol d cube 2D 64.52 ml (test code = 1648143774) LV SV Cube 2D (test 43.38 ml code = 1095325315) LV SI Cube 2D (test 25.25 ml/m2 code = 4060564804) IVS pct thck PLAX 35.78 % (test code = 0512689240) AoV area I VMN bsa 1.20 cm2/m2 (test code = 7464762258) LVOT mean grad (test 1.76 mmHg code = 8774262826) Aov area Vmn (test 2.06 cm2 code = 2119150458) Pt Wt (test code = 72.57 4135716341) Pt Size (test code = 154.94 9362813951) MV AE ratio (test 1.35 code = 0721226371) LVOT Vmn (test code 0.63 = 3428157133) MR Vmax (test code = 4.74 m/s 6364284866) PV Vmn (test code = 11.10 m/s 6509679822) LV Vol Index s bpmod 30.22 ml/m2 BSA Eldora (test code = 4874040581) LV SI MOD BP BSA 19.11 ml/m2 Layton (test code = 6623335549) BMI (test code = 30.23 kg/m2 4984762488) LV Vol,s BP (test 19.08 nl code = 5916950503) LV Vol,d BP (test 51.92 ml code = 3202753256) LV SV,BP (test code 32.84 % = 6671141495) LV SV,A4C (test code 32.58 % = 9968470746) LV SV,A2C (test code 31.57 % = 0266352745) Kavon [place],s A4C (test 4.97 cm code = 4888788875) Kavon [place],s A2C (test 5.11 cm code = 0676884277) Kavon [place],d A4C (test 6.03 cm code = 2441996258) Kavon [place],d A2C (test 6.27 cm code = 3560586655) LV EF,A4C (test code 59.15 % = 0170436352) LV EF,A2C (test code 66.42 % = 8485154391) AoV VTI (test code = 0.28 m 6929501491) LVOT VTI (test code 0.19 m = 6925776971) TAPSE (test code = 1.8 cm 3217156940) LA diam s (test code 4.1 cm = 2921031789) LA Volume Index 20.6 mL/m2 <=35 (test code = 1606965614) LA VOL 2C (test code 31.0 ml = 2922841140) LA Vol 4C (test code 34.0 ml = 6729040006) D E excurs (test 1.2 code = 6034885909) E f slope (test code 0.07 = 2319117495) E prime lat (test 0.10 code = 9348336456) E prime sept (test 0.06 code = 8756622889) PV acc T slope (test 8.3 code = 1613523801) IVC diam (test code 1.3 cm = 7647051892) ANTONIO (test code = ANTONIO) Left Ventricle: Normal wall motion. Normal systolic function with a visually estimated EF of 55 - 60%. Grade I (impaired relaxation) diastolic dysfunction. Normal left ventricular filling pressure. Tricuspid Valve: No significant valvular regurgitation. Unable to assess PA systolic pressure. Left VentricleLeft ventricle size is normal. Normal wall thickness. Normal wall motion. Normal systolic function with a visually estimated EF of 55 - 60%. Grade I (impaired relaxation) diastolic dysfunction. Normal left ventricular filling pressure.Right VentricleRight ventricle size is normal. Normal systolic function.Left AtriumLeft atrium size is normal.Right AtriumRight atrium size is normal.IVC/SVCIVC diameter is less than or equal to 21 mm and decreases greater than 50% during inspiration; therefore the estimated right atrial pressure is normal (~3 mmHg).Mitral ValveValve structure is normal. Trace valvular regurgitation. No stenosis.Tricuspid ValveValve structure is normal. No significant valvular regurgitation. Unable to assess PA systolic pressure. No stenosis.Aortic ValveValve structure is normal. No significant valvular regurgitation. No stenosis.Pulmonic ValveValve structure is normal.PericardiumTh ere is no pericardial effusion present.AortaNormal sized sinus of Valsalva and aortic root.Study DetailsStudy quality was adequate. A complete 2D, color flow Doppler and spectral Doppler echocardiogram was performed.The apical, parasternal and subcostal views were obtained. Patient exhibited sinus rhythm. Lab Interpretation Abnormal (test code = 98120-2) [facility] myocardial [id number] 04:00:52 Test Item Value Reference Range Interpretation Comments Target HR (test code 147.00 bpm = 1026848346) Resting HR (test 60.0 BPM code = 5740206355) Post Peak HR (test 80.0 bpm code = 4451358844) Percent HR (test 54.42 % code = 7789891201) Resting BP (test 145/66 mmHg code = 2013270480) Post Peak BP (test 122/59 mmHg code = 7201305265) Radiology Study observation (narrative) (test code = 90898-4) ANTONIO (test code = ANTONIO) Stress ECG Conclusion: The test was negative for ischemia. Stress ECG: There were no arrhythmias during stress. There were no arrhythmias during recovery. Perfusion Defect: There is a left ventricular perfusion defect that is small in size present in the apical location(s). The defect appears consistent with probable artifact caused by gut. Conclusion: Normal myocardial perfusion. Normal systolic function. Gated Stress Function: Left ventricular function post-stress is normal. Resting ECGThe ECG shows normal sinus rhythm.Stress FindingsA pharmacological stress test was performed using regadenoson. The patient was infused with 5 ml of regadenoson intravenous over 10 seconds for a total dose of 0.4 mg, followed by a 5 ml saline flush intravenous over 10 seconds. The stress radiotracer followed the intravenous saline flush over 10 seconds. The patient and had a maximal HR of 54.42% ( BPM of max predicted heart rate) METS. The patient reached the end of the protocol. Blood pressure demonstrated a normal response and heart rate demonstrated a normal response to stress. The patient's heart rate recovery was normal.Stress ECGNo ST changes were noted. There were no arrhythmias during stress. There were no arrhythmias during recovery.Isotope AdministrationThe isotope used for nuclear imaging was technetium tetrofosmin. Images performed at rest after an injection of 9 mCi. Images performed at stress after an injection of 27 mCi.Nuclear Study QualityA perfusion 1-day rest/stress protocol was performed.Perfusion DefectThere is a left ventricular perfusion defect that is small in size present in the apical location(s). The defect appears consistent with probable artifact caused by gut.Stress Function CommentsLeft ventricular function post-stress is normal. The stress end diastolic cavity size is normal.Stress Combined ConclusionNormal myocardial perfusion. Normal systolic function.Stress Post ImpressionThe test was negative for ischemia. [facility] stress [id number] 19:35:34 Test Item Value Reference Range Interpretation Comments Resting HR (test code 63 = 2196904423) Resting BP (test code 145&66 = 1393567620) Peak MET Achieved 1.0 (test code = 6138630058) Protocol Name (test LEXISCAN code = 4233902105) Time in Exercise 00:01:00 Phase (test code = 1161962573) Max Systolic BP (test 145 code = 6100973468) Max Diastolic BP 66 (test code = 2777516276) Max Heart Rate (test 81 code = 9042700194) Max Predicted Heart 147 Rate (test code = 5394511336) Target HR Formula (220 - Age)*100% (test code = 3621708217) Test Indication (test CHEST PAIN, STEMI, code = 4520665831) PREPROCEDURAL EXAM Arrhy During Ex (test code = 1696571379) ECG Interp Before EX (test code = 0028288159) ECG Interp During Ex (test code = 1675100096) Ex Summary Comment (test code = 3949077732) Overall HR Response to Exercise (test code = 7990156071) Overall BP Response To Exercise (test code = 2191953093) Reason for Protocol Complete Termination (test code = 6945085973) Stress Test Waveform interpreted in Impression (test code report associated with = 6572696376) image study. No interpretation is provided as part of this Stress ECG report.-Electronically Signed By Hardeep Calero MD ([id number]), industrial editor Renny Mckeon ([id number]) on 08/16/2022 1:35:29 PM [facility] Dallas[facility] [id number] 01:24:00 Test Item Value Reference Interpretation Comments Range Urine culture Streptococcus group A Specime n isolate (test B10-4 cfu/mlThe Information Specimen code = 51220-1) performance Source: Urin eSpecimen characteristics of Site: Carlo an catch this assay on this isolatewere validated by the Microbiology Laboratory at [facility]. This source has not been approved by the U.S. Food and Drug Administration. The results are not intended to be used as the sole means for clinical diagnosis or patient management. The Microbiology Laboratory is authorized under the clinical Laboratory Improvement Amendments of 1988 (CLIA-88) to perform high complexity testing.The performance characteristics of this assay on this isolatewere validated by the Microbiology Laboratory at [facility]. This source has not been approved by the U.S. Food and Drug Administration. The results are not intended to be used as the sole means for clinical diagnosis or patient management. The Microbiology Laboratory is authorized under the clinical Laboratory Improvement Amendments of 1988 (CLIA-88) to perform high complexity testing.testing. Lab Abnormal Interpretation (test code = 34391-4) [facility] [Presence] in Respiratory specimen by SHARON with probe [id number] 20:06:26 Test Item Value Reference Range Interpretation Comments SARS-CoV-2 (COVID-19) RNA Not detected [Presence] in Respiratory specimen by SHARON with probe detection (test code = 20380-2) Whether patient is employed in a Unknown healthcare setting (test code = 56486-5) Whether the patient has symptoms Unknown related to condition of interest (test code = 85790-9) Whether the patient was Unknown hospitalized for condition of interest (test code = 89329-4) Whether the patient was admitted Unknown to intensive care unit (ICU) for condition of interest (test code = 64484-1) Whether patient resides in a Unknown congregate care setting (test code = 54031-8) status (test code = Unknown 35388-4) Date and time of symptom onset Unknown (test code = 55744-6) [facility] GLUCOSE (AUTOMATED)2019-09-16 02:10:00 Test Item Value Reference Range Interpretation Comments POCT GLU (test code = 7493647820) 194 mg/dL 70-110 H Lab Interpretation (test code = Abnormal 04112-2) [facility] [id number] 23:38:00 Test Item Value Reference Range Interpretation Comments NA (test code = 136 mmol/L 135-145 7871043850) K (test code = 3.8 mmol/L 3.5-5 1647009134) CL (test code = 98 mmol/L 98-108 9262133669) CO2 TOTAL (test code = 29 mmol/L 23-31 7319068379) AGAP (test code = 2-16 5048578527) BUN (test code = 15 mg/dL 7-23 2211076488) GLUCOSE (test code = 296 mg/dL 70-110 H 0523587972) CREATININE (test code = 0.59 mg/dL 0.5-1.04 4354437101) TOTAL BILI (test code = 0.8 mg/dL 0.1-1.1 3235535526) CALCIUM (test code = 10.1 mg/dL 8.6-10.6 9643389294) T PROTEIN (test code = 7.6 g/dL 6.3-8.2 1954750082) ALBUMIN (test code = 4.5 g/dL 3.5-5 2323172460) ALK PHOS (test code = 187 U/L 34-122 H 9412729747) ALTv (test code = 42 U/L 5-35 H 1742-6) AST(SGOT) (test code = 42 U/L 13-40 H 6913957222) eGFR Calculation mL/min/1.73m2 (Non-) (test code = 7061335493) eGFR Calculation mL/min/1.73m2 () (test code = 0553165071) ANTONIO (test code = ANTONIO) Association of Glomerular Filtration Rate (GFR) and Staging of Kidney Disease* + --+ --+ ------+| GFR (mL/min/1.73 m2) ?| With Kidney Damage ?| ?Without Kidney Damage+ --------+ --------+ +| ?>90 ?| ?Stage one ?| ? Normal ?+ ---+ ---+ -------+| ?60-89 ?| ?Stage two ?| ? Decreased GFR ? + --+ --+ ------+| ?30-59 ?| ?Stage three ?| ? Stage three ? + --+ --+ ------+| ?15-29 ?| ?Stage four ? | ? Stage four ?+ ---+ ---+ -------+| ?<15 (or dialysis) ? ?| ?Stage five ? | ? Stage five ?+ ---+ ---+ -------+ *Each stage assumes the associated GFR level has been in effect for at least three months. ?Stages 1 to 5, with or without kidney disease, indicate chronic kidney disease. Notes: Determination of stages one and two (with eGFR >59mL/min/1.73 m2) requires estimation of kidney damage for at least three months as defined by structural or functional abnormalities of the kidney, manifested by either:Pathological abnormalities or Markers of kidney damage (including abnormalities in the composition of the blood or urine or abnormalities in imaging tests). Lab Interpretation Abnormal (test code = 23702-8) [facility], [id number] 23:36:00 Test Item Value Reference Range Interpretation Comments LIPASE (test code = 1360615605) 44 U/L 0-220 Lab Interpretation (test code = Normal 33587-1) [facility]2020[facility] 23:26:00 Test Item Value Reference Range Interpretation Comments APPEARANCE (test code = Clear Clear 1634210221) COLOR (test code = Yellow Yellow 0406981673) PH (test code = 4.8-8.0 0788974061) SP GRAVITY (test code = 1.003-1.030 6660330481) GLU U QUAL (test code = 500 mg/dL Normal A 4180279627) BLOOD (test code = Negative Negative 7006329805) KETONES (test code = Negative Negative 0515842467) PROTEIN (test code = Negative Negative 2887-8) UROBILIN (test code = 2.0 mg/dL Normal A 9633423176) BILIRUBIN (test code = Negative Negative 8983971916) NITRITE (test code = Negative Negative 8386321356) LEUK HUGO (test code = Negative Negative 8682783490) RBC/HPF (test code = See_Comment H [Autom ated message] 7263190888) The system dakick generated this result transmit max reference range : 0 - 3 HPF. The refe rence range was not u sed to interpret th is result as normal/abnormal . WBC/HPF (test code = See_Comment [Autom ated message] 8795066975) The system dakick generated this result transmit max reference range : 0 - 5 HPF. The refe rence range was not u sed to interpret th is result as normal/abnormal . BACTERIA (test code = Negative Negative 3060473982) MUCOUS (test code = Slight Negative LPF A 9898878955) SQ EPITH (test code = HPF 6166197710) Lab Interpretation (test Abnormal code = 82475-7) [facility] WITH [id number] 23:07:00 Test Item Value Reference Range Interpretation Comments WBC (test code = See_Comment [Automated 8690-2) message] The sy stem which generated this result transmitted reference range : 4.30 - 11.10 10*3/?L. The reference range was not used to interpret this result as normal/abnormal . RBC (test code = See_Comment [Automated 009-8) message] The sy stem which generated this result transmitted reference range : 3.93 - 5.25 10*6/?L. The reference range was not used to interpret this result as normal/abnormal . HGB (test code = 15.1 g/dL 11.6-15 H 718-7) HCT (test code = 44.5 % 35.7-45.2 4544-3) MCV (test code = 91.0 fL 80.6-95.5 787-2) MCH (test code = 30.9 pg 25.9-32.8 785-6) MCHC (test code = 33.9 g/dL 31.6-35.1 786-4) RDW-SD (test code = 39.8 fL 39-49.9 43037-8) RDW-CV (test code = 12.0 % 12-15.5 788-0) PLT (test code = See_Comment [Automated 777-3) message] The sy stem which generated this result transmitted reference range : 166 - 358 10*3/ ?L. The reference r dulce was not used to interpret this result as normal/abnormal . MPV (test code = 11.1 fL 9.5-12.9 75450-8) NRBC/100 WBC (test See_Comment [Automat ed code = 1892561952) message] The system which generated this result transmitted reference range : 0.0 - 10.0 /100 WBCs. The refer ence range was not u sed to interpret th is result as normal/abnormal . NRBC x10^3 (test code <0.01 See_Comment [Auto mated = 0658892613) message] The s ystem which generated this result transmitted reference range : 10*3/?L. The reference range was not used to interpret this result as normal/abnormal . GRAN MAT (NEUT) % 71.7 % (test code = 770-8) IMM GRAN % (test code 0.20 % = 3364549136) LYMPH % (test code = 20.6 % 736-9) MONO % (test code = 5.8 % 5905-5) EOS % (test code = 1.5 % 713-8) BASO % (test code = 0.2 % 706-2) GRAN MAT x10^3(ANC) 6.50 10*3/uL 1.88-7.09 (test code = 9226613663) IMM GRAN x10^3 (test <0.03 0-0.06 code = 7370118739) LYMPH x10^3 (test code 1.87 10*3/uL 1.32-3.29 = 731-0) MONO x10^3 (test code 0.53 10*3/uL 0.33-0.92 = 742-7) EOS x10^3 (test code = 0.14 10*3/uL 0.03-0.39 711-2) BASO x10^3 (test code <0.03 0.01-0.07 = 704-7) Lab Interpretation Abnormal (test code = 09200-5) [facility] GLUCOSE (AUTOMATED)2019-09-15 22:34:00 Test Item Value Reference Range Interpretation Comments POCT GLU (test code = 6198352323) 288 mg/dL 70-110 H Lab Interpretation (test code = Abnormal 66999-4) [facility] HEMOGLOBIN A1C [id number] 15:01:00 Test Item Value Reference Range Interpretation Comments POCT HBA1C (test code = 4548-4) 10.3 % 4-6 A Lab Interpretation (test code = Abnormal 04009-6) [facility] HEMOGLOBIN A1C [id number] 15:01:00 Test Item Value Reference Range Interpretation Comments POCT HBA1C (test code = 4548-4) 10.3 % 4-6 A Lab Interpretation (test code = Abnormal 90793-9) [facility] HEMOGLOBIN A1C [id number] 15:01:00 Test Item Value Reference Range Interpretation Comments POCT HBA1C (test code = 4548-4) 10.3 % 4-6 A Lab Interpretation (test code = Abnormal 41224-7) [facility] SCREEN[facility] TOMOSYNTHESIS [id number] 21:26:13Examination:BI SCREENING TOMOSYNTHESIS BILATERAL History:Patient is 69 year old and is seen for: ?Screening mammogram.. Computer-aided detection (CAD) utilized. Comparisons: 04/11/2017 SCREENING DIGITAL BREAST ONEIL Findings:The breasts are heterogeneously dense, which may obscure small masses. There is no evidence of suspicious masses, calcifications, or other abnormal findings. Impression:No mammographic evidence of malignancy. Recommendation:Annual mammographic follow-up BI-RADS Category: Both 1 -NegativeUnBaptist Hospitals of Southeast TexasDEXA AXIAL (HIP AND SPINE)2019-08-13 16:04:45 1. Lumbar Spine L1- L4: The calculated total T-score is ?-2.5, and the Z-score is -1.0, which isosteoporosis.The total bone mineral density is calculated at 0.890 g/cm2. This puts the patient at high risk for compression fractures. 2. Right Hip:The calculated T-score at the femoral neck is -1.7, and the Z-score is-0.1, osteopenia.The calculated total T-score is -1.4 and the Z-score is -0.2, which isosteopenia. The total bone mineral density is calculated at 0.826 g/cm2. There is increased risk for femoral neck fractures. EXAM: Dual-energy X-ray absorptiometry. HISTORY: osteoporosis screening ? COMPARISON: None. TECHNIQUE and FINDINGS: Bone densitometry of the lumbar spine and right hip was performed. WHO-definitions: T-score normal: +/- 1 SD around the meanosteopenia: >1 to 2.4 SD below the meanosteoporosis: >2.5 SD below the meanFracture risk doubles for each 1.5 SD below the mean. [facility], Radiant Results Inft User - 08/13/2019 10:05 AM CSTEXAM: Dual-energy X-ray absorptiometry.HISTORY: osteoporosis screening COMPARISON: None.TECHNIQUE and FINDINGS:Bone densitometry of the lumbar spine and right hip was performed. WHO-definitions: T- scorenormal: +/- 1 SD around the meanosteopenia: >1 to 2.4 SD below the meanosteoporosis: >2.5 SD below the meanFracturerisk doubles for each 1.5 SD below the mean. IMPRESSION1.Lumbar Spine L1-L4: The calculated total T-score is -2.5, and the Z-score is -1.0, which isosteoporosis.The total bone mineral density is calculated at 0.890 g/cm2. This puts the patient at high risk for compression fractures. 2. Right Hip:The calculated T-score at the femoral neck is -1.7, and the Z-score is-0.1, osteopenia.The calculated total T-score is -1.4 and the Z-score is -0.2, which isosteopenia. The total bone mineral density is calculated at 0.826 g/cm2. There is increased risk for femoral neck fractures.[facility] MICROALBUMIN [id number] 18:08:00 Test Item Value Reference Range Interpretation Comments CREAT U (test 125.6 mg/dL code = 3719058339) MICROALB U 34 ug/mL 0-45 (test code = 72002-2) MICROAL/CR See_Comment [Automated (test code = message] [employer] 9318-7) system which generated this result transmitted reference range : 0 - 30 mg/g of creatinine. The reference range was not used to interpret this result as normal/abnormal . ANTONIO (test code Normal: <30 mg/g = ANTONIO) creatinineMicroalbuminur ia: 30 - 299 mg/g creatinineClinical albuminuria: > 300 mg/g creatinine [facility]enMICROALBUMIN [id number] 18:08:00 Test Item Value Reference Range Interpretation Comments CREAT U (test 125.6 mg/dL code = 7192613608) MICROALB U 34 ug/mL 0-45 (test code = 77192-7) MICROAL/CR See_Comment [Automated (test code = message] [employer] 9318-7) system which generated this result transmitted reference range : 0 - 30 mg/g of creatinine. The reference range was not used to interpret this result as normal/abnormal . ANTONIO (test code Normal: <30 mg/g = ANTONIO) creatinineMicroalbuminur ia: 30 - 299 mg/g creatinineClinical albuminuria: > 300 mg/g creatinine [facility]enFREE [id number] 08:09:00 Test Item Value Reference Range Interpretation Comments FREE T3 (test code = 9074135049) 3.75 pg/mL 2.77-5.27 Lab Interpretation (test code = Normal 03295-6) [facility]enFR [id number] 08:09:00 Test Item Value Reference Range Interpretation Comments FREE T3 (test code = 0858953050) 3.75 pg/mL 2.77-5.27 Lab Interpretation (test code = Normal 96342-4) [facility]enVITAMIN B12, [id number] 22:08:00 Test Item Value Reference Range Interpretation Comments VIT B12 (test code = 472 pg/mL 240-930 7143727243) ANTONIO (test code = ANTONIO) Biotin has been reported to cause a positive bias, interpret results relative to patient's use of biotin. Lab Interpretation (test Normal code = 94364-3) [facility]enFOLATE2020-01-27 22:08:00 Test Item Value Reference Range Interpretation Comments FOLATE SER (test code = 16.5 ng/mL 3-20 Biot in has been 5605047706) reported to cau se a positive bias, interpret resul ts relative to patient's use o f biotin. Lab Interpretation (test Normal code = 81140-4) [facility]en[facility]IT[facility] B12, [id number] 22:08:00 Test Item Value Reference Range Interpretation Comments VIT B12 (test code = 472 pg/mL 240-930 1688709915) ANTONIO (test code = ANTONIO) Biotin has been reported to cause a positive bias, interpret results relative to patient's use of biotin. Lab Interpretation (test Normal code = 53607-1) [facility]2020-01-27 22:08:00 Test Item Value Reference Range Interpretation Comments FOLATE SER (test code = 16.5 ng/mL 3-20 Biot in has been 1305105644) reported to cau se a positive bias, interpret resul ts relative to patient's use o f biotin. Lab Interpretation (test Normal code = 49373-4) [facility]en[facility]IT[facility] D, [id number] 21:25:00 Test Item Value Reference Range Interpretation Comments VIT D 25OH (test code = 33 ng/mL 25-80 64754-5) ANTONIO (test code = ANTONIO) Deficiency: <20 ng/mLInsufficiency : 20-24 ng/mLOptimal: 25-80 ng/mL Lab Interpretation (test Normal code = 31831-5) [facility]IT[facility] D, [id number] 21:25:00 Test Item Value Reference Range Interpretation Comments VIT D 25OH (test code = 33 ng/mL 25-80 02711-8) ANTONIO (test code = ANTONIO) Deficiency: <20 ng/mLInsufficiency : 20-24 ng/mLOptimal: 25-80 ng/mL Lab Interpretation (test Normal code = 65056-2) [facility]enTHYROID STIMULATING [id number] 18:37:00 Test Item Value Reference Range Interpretation Comments TSH (test code = See_Comment [Automated message] 5303651914) The system dakick generated this result transmitted ref erence range: 0.45 - 4 .70 mIU/L. The refe rence range was not u sed to interpret this result as normal/abnor mal. Lab Interpretation (test Normal code = 61693-0) [facility]enTHYROID STIMULATING [id number] 18:37:00 Test Item Value Reference Range Interpretation Comments TSH (test code = See_Comment [Automated message] 6340791746) The system dakick generated this result transmitted ref erence range: 0.45 - 4 .70 mIU/L. The refe rence range was not u sed to interpret this result as normal/abnor mal. Lab Interpretation (test Normal code = 98576-7) [facility] [id number] 18:24:00 Test Item Value Reference Range Interpretation Comments FREE T4 (test code = 8467721167) 2.04 ng/dL 0.78-2.2 Lab Interpretation (test code = Normal 69597-6) [facility] [id number] 18:24:00 Test Item Value Reference Range Interpretation Comments FREE T4 (test code = 6871975948) 2.04 ng/dL 0.78-2.2 Lab Interpretation (test code = Normal 61520-8) [facility]enGLYCOSYLATED HEMOGLOBIN (A1C)2019-08-06 18:23:00 Test Item Value Reference Interpretation Comments Range HGB A1C (test code = See_Comment H [Autom ated 4548-4) message] The system which generated this result transmitted reference range : 4.0 - 6.0 % NGSP. The reference range was not used to interpret this result as normal/abnormal . ANTONIO (test code = %A1C (NGSP) ANTONIO) Interpretation (ADA)4.8-5.6 ? ? Normal or (Non-Diabetic Range)5.7-6.4 ? ? Increased Risk (Pre-Diabetic)>6.5 ?Diabetes Indicated Lab Interpretation Abnormal (test code = 61059-5) [facility]enGLYCOSYLATED HEMOGLOBIN (A1C)2019-08-06 18:23:00 Test Item Value Reference Interpretation Comments Range HGB A1C (test code = See_Comment H [Autom ated 4548-4) message] The system which generated this result transmitted reference range : 4.0 - 6.0 % NGSP. The reference range was not used to interpret this result as normal/abnormal . ANTONIO (test code = %A1C (NGSP) ANTONIO) Interpretation (ADA)4.8-5.6 ? ? Normal or (Non-Diabetic Range)5.7-6.4 ? ? Increased Risk (Pre-Diabetic)>6.5 ?Diabetes Indicated Lab Interpretation Abnormal (test code = 08340-3) [facility]enLIPID PANEL (46575)(TOTAL CHOLESTEROL, TRIGLYCERIDES, HDL)2019-08-06 18:05:00 Test Item Value Reference Range Interpretation Comments CHOL (test code = 145 mg/dL 120-200 1829761031) HDL (test code = 34 mg/dL >50 L 8444691065) HDLC RATIO (test code = See_Comment [Au tomated message] 5184504951) The system dakick generated this result transmit max reference range : <=4.5. The refe rence range was not u sed to interpret th is result as normal/abnormal . TRIG (test code = 194 mg/dL 30-170 H 3438951215) LDL CHOL (test code = 72 mg/dL See_Comment [Auto mated message] 89581-0) The system dakick generated this result transmit max reference range : <=160. The refe rence range was not u sed to interpret th is result as normal/abnormal . VLDL (test code = 39 mg/dL 5-60 8099739792) Lab Interpretation (test Abnormal code = 91017-4) [facility]enLIPID PANEL (70902)(TOTAL CHOLESTEROL, TRIGLYCERIDES, HDL)2019-08-06 18:05:00 Test Item Value Reference Range Interpretation Comments CHOL (test code = 145 mg/dL 120-200 5685828024) HDL (test code = 34 mg/dL >50 L 9791796394) HDLC RATIO (test code = See_Comment [Au tomated message] 4455544132) The system dakick generated this result transmit max reference range : <=4.5. The refe rence range was not u sed to interpret th is result as normal/abnormal . TRIG (test code = 194 mg/dL 30-170 H 1000311031) LDL CHOL (test code = 72 mg/dL See_Comment [Auto mated message] 56780-8) The system dakick generated this result transmit max reference range : <=160. The refe rence range was not u sed to interpret th is result as normal/abnormal . VLDL (test code = 39 mg/dL 5-60 8510814415) Lab Interpretation (test Abnormal code = 99797-1) [facility]"
--- NOTE | 2023-06-14 11:21 | RAD REPORT ---
EXAM DESCRIPTION: RADChest Single View06/14/2023 10:19 am CLINICAL HISTORY: CHEST PAIN COMPARISON: Chest Single View dated 11/23/2016; Chest Pa And Lat (2 Views) dated 01/02/2016; Chest Pa And Lat (2 Views) dated 11/07/2015; CHEST SINGLE VIEW dated 03/14/2014 TECHNIQUE: Portable AP view of the chest. FINDINGS: Mild central interstitial prominence, stable. No new focal airspace opacity. No pneumotho rax or effusion. The cardiomediastinal contours are unremarkable. IMPRESSION: Stable mild central interstitial prominence, which could be chronic or related to mild c entral venous congestion.
--- NOTE | 2023-06-14 11:49 | RAD REPORT ---
EXAM DESCRIPTION: US - UPPER EXTREMITY VENOUS UNILATE - 06/14/2023 11:24 am CLINICAL HISTORY: Pain, swelling COMPARISON: None. TECHNIQUE: Real-time sonographic evaluation of the left upper extremity deep venous system was perfo rmed. FINDINGS: One of the paired left brachial veins shows a segment of noncompressibility and absent talha w on color duplex imaging. Normal compressibility, flow augmentation, phasic flow and spontaneous talha w is identified throughout the remainder of the left upper extremity deep venous system. No intralumi nal filling defects seen. IMPRESSION: Evidence of segmental deep venous thrombosis involving 1 of the paired left brachial vei ns. The findings were communicated to Etienne Georges on 06/14/2023 at 11:45 hours.
--- NOTE | 2023-06-14 12:46 | RAD REPORT ---
EXAM DESCRIPTION: CT - Chest For Pe Angio - 06/14/2023 12:15 pm CLINICAL HISTORY: CHEST PAIN COMPARISON: No comparisons TECHNIQUE: Thin axial CT images of the chest were obtained following administration of 100 mL Isovue 370 IV contrast. Multiplanar reconstructions, and maximum intensity projection reconstructions were generated and reviewed. Exam utilizes a protocol for optimal evaluation of pulmonary arterial tree. All CT scans are performed using dose optimization technique as appropriate and may include automated exposure control or mA/KV adjustment according to patient size. FINDINGS: Pulmonary arteries are normal. No emboli or other suspicious finding. No acute or signific ant aorta findings. No mass or infiltrate in the lung parenchyma. No pleural thickening or pleural effusion. No pneumotho rax. No abnormal mediastinal or hilar masses or lymphadenopathy seen. No chest wall mass or abnormal axill iary lymphadenopathy. Status post cholecystectomy. Small hiatal hernia. IMPRESSION: No evidence of acute central pulmonary emboli. No other acute pulmonary process.
--- NOTE | 2023-06-14 12:51 | ER ---
Nurse's Notes [facility] Name: Patsy Lilly Age: 72 yrs Sex: Female : 1950 Arrival Date: 06/14/2023 Time: 09:27 Bed 16 Private MD: Diagnosis: Chest pain, unspecified;DVT of left brachial vein Presentation: 06/14 09:49 Chief complaint: Patient states: CP and L arm numbness. ll1 09:49 Method Of Arrival: Ambulatory ll1 09:49 Acuity: TAMIKO 2 ll1 10:06 Initial Sepsis Screen: Does the patient meet any 2 criteria? No. Patient's initial nj1 sepsis screen is negative. Does the patient have a suspected source of infection? No. Patient's initial sepsis screen is negative. 10:24 Coronavirus screen: At this time, the client does not indicate any symptoms associated nj1 with coronavirus-19. Ebola Screen: No symptoms or risks identified at this time. Risk Assessment: Do you want to hurt yourself or someone else? Patient reports no desire to harm self or others. Onset of symptoms was June 13, 2023. Historical: - Allergies: 09:48 No Known Allergies; ll1 - PMHx: 09:48 Diabetes - NIDDM; Hypertension; Hypothyroidism; Myocardial infarction; ll1 - Immunization history:: Adult Immunizations up to date. - Social history:: Smoking status: Patient denies any tobacco usage or history of. - Family history:: not pertinent, pertinent for. Screenin:23 [facility] ED Fall Risk Assessment (Adult) Score/Fall Risk Level 0 - 2 = Low Risk nj1 Oriented to surroundings, Maintained a safe environment, Hourly rounding (assess needs \T\ fall precautionary measures) done. Abuse screen: Denies threats or abuse. Denies injuries from another. Nutritional screening: No deficits noted. Tuberculosis screening: No symptoms or risk factors identified. Assessment: 09:56 General: Appears in no apparent distress. comfortable, Behavior is calm, cooperative, nj1 appropriate for age. 09:56 Pain: Complains of pain in chest Pain currently is 5 out of 10 on a pain scale. Quality nj1 of pain is described as pressure, Pain began 1 day ago. Neuro: Level of Consciousness is awake, alert, obeys commands, Oriented to person, place, time, situation, Moves all extremities. Gait is steady, Speech is normal, Facial symmetry appears normal, Pupils are PERRLA. Cardiovascular: Patient's skin is warm and dry. Chest pain. 11:45 Reassessment: Patient appears in no apparent distress at this time. Patient and/or nj1 family updated on plan of care and expected duration. Pain level reassessed. Patient is alert, oriented x 3, equal unlabored respirations, skin warm/dry/pink. Patient states feeling better. Patient states symptoms have improved. 13:22 Reassessment: Patient appears in no apparent distress at this time. Patient and/or nj1 family updated on plan of care and expected duration. Pain level reassessed. Patient is alert, oriented x 3, equal unlabored respirations, skin warm/dry/pink. Patient states feeling better. Patient states symptoms have improved. Vital Signs: 10:01 BP 136 / 62; Pulse 57; Pain 5/10; nj1 10:06 BP 103 / 64; Pulse 65; Resp 16; Temp 97.9(TE); Pulse Ox 97% ; Pain 4/10; nj1 11:45 BP 107 / 66; Pulse 53; Resp 20; Pulse Ox 99% on R/A; Pain 2/10; nj1 13:21 BP 111 / 65; Pulse 62; Resp 16; Pulse Ox 98% on R/A; Pain 0/10; nj1 10:01 Pain Scale: Adult nj1 10:06 Pain Scale: Adult nj1 11:45 Pain Scale: Adult nj1 13:21 Pain Scale: Adult nj1 ED Course: 09:30 Patient arrived in ED. im 09:35 Tali Ann, LENNOX is Primary Nurse. nj1 09:36 Etienne Georges MD is Attending Physician. rt 09:48 Arm band placed on Patient placed in an exam room, on a stretcher. ll1 09:49 Triage completed. ll1 10:10 Client placed on continuous cardiac and pulse oximetry monitoring. NIBP monitoring nj1 applied. 10:10 Patient has correct armband on for positive identification. Bed in low position. Call nj1 light in reach. Adult w/ patient. 10:10 Inserted saline lock: 22 gauge in left forearm, using aseptic technique. Blood nj1 collected. 10:10 Patient maintains SpO2 saturation greater than 95% on room air. nj1 10:21 XRAY Chest (1 view) In Process Unspecified. EDMS 11:04 UPPER EXTREMITY VENOUS UNILATE In Process Unspecified. EDMS 12:09 Troponin High Sensitivity Sent. kj1 12:16 CT Chest For PE Angio In Process Unspecified. EDMS 13:21 Provided Education on: Discharge instructions. nj1 13:22 No provider procedures requiring assistance completed. IV discontinued, intact, nj1 bleeding controlled. Administered Medications: 09:58 Drug: Aspirin PO Chewable Tablet 324 mg PO once; 81 mg tablets x 4 Route: PO; nj1 10:30 Follow up: Response: No adverse reaction nj1 10:01 Drug: Nitroglycerin Sublingual 0.4 mg Sublingual once; every five minute if needed x3 nj1 Route: Sublingual; 10:06 Follow up: Response: No adverse reaction nj1 Medication: 13:21 VIS not applicable for this client. nj1 Outcome: 12:51 Discharge ordered by MD. rt 13:21 Discharged to home ambulatory, nj1 13:21 Condition: stable 13:21 Discharge instructions given to patient, Instructed on discharge instructions, follow up and referral plans. medication usage, safety practices, Bleeding precautions Demonstrated understanding of instructions, follow-up care, medications, Prescriptions given X 1, 13:28 Patient left the ED. nj1 Signatures: Dispatcher [employer] EDMS Vijaya Breen kj1 Joshua Mueller, RN RN ll1 Etienne Georges MD MD rt Tali Ann RN RN nj1 Angelita Cueva Corrections: (The following items were deleted from the chart) 10:19 10:06 BP 103 / 64; Pulse 65bpm; Pain 4/10, Adult; nj1 nj1 12:20 10:06 BP 103 / 64; Pulse 65bpm; Resp 16bpm; Pulse Ox 97%; Pain 4/10, Adult; nj1 nj1
--- NOTE | 2023-06-14 12:51 | EDPHYS ---
Physician Documentation [facility] Name: Patsy Lilly Age: 72 yrs Sex: Female : 1950 Arrival Date: 06/14/2023 Time: 09:27 Bed 16 Private MD: ED Physician Etienne Georges HPI: 06/14 13:31 This 72 yrs old Female presents to ER via Ambulatory with complaints of Chest rt Pressure, Numbness Of Arm, General Weakness. 13:31 Patient presents to the ED with a chest pressure, reported purple discoloration to the rt left wrist and forearm starting last night. The discoloration and pain has since resolved reports mild soreness to the arm. Continues with pressure that is unchanged. No aggravating or alleviating factors. Symptoms are moderate severity.. Historical: - Allergies: :48 No Known Allergies; ll1 - PMHx: 09:48 Diabetes - NIDDM; Hypertension; Hypothyroidism; Myocardial infarction; ll1 - Immunization history:: Adult Immunizations up to date. - Social history:: Smoking status: Patient denies any tobacco usage or history of. - Family history:: not pertinent, pertinent for. ROS: 13:31 Constitutional: Negative for fever, chills, and weight loss, Respiratory: Negative for rt shortness of breath, cough, wheezing, and pleuritic chest pain, Abdomen/GI: Negative for abdominal pain, nausea, vomiting, diarrhea, and constipation, Neuro: Negative for headache, weakness, numbness, tingling, and seizure, 13:31 Cardiovascular: Positive for chest pain, Negative for edema, 13:31 MS/extremity: Positive for pain, swelling, Exam: 13:31 Constitutional: This is a well developed, well nourished patient who is awake, alert, rt and in no acute distress. Head/Face: Normocephalic, atraumatic. Chest/axilla: Normal chest wall appearance and motion. Nontender with no deformity. No lesions are appreciated. Cardiovascular: Regular rate and rhythm with a normal S1 and S2. No gallops, murmurs, or rubs. Normal PMI, no JVD. No pulse deficits. Respiratory: Lungs have equal breath sounds bilaterally, clear to auscultation and percussion. No rales, rhonchi or wheezes noted. No increased work of breathing, no retractions or nasal flaring. Abdomen/GI: Soft, non-tender, with normal bowel sounds. No distension or tympany. No guarding or rebound. No evidence of tenderness throughout. Skin: Warm, dry with normal turgor. Normal color with no rashes, no lesions, and no evidence of cellulitis. MS/ Extremity: Pulses equal, no cyanosis. Neurovascular intact. Full, normal range of motion. Neuro: Awake and alert, GCS 15, oriented to person, place, time, and situation. Cranial nerves II-XII grossly intact. Motor strength 5/5 in all extremities. Sensory grossly intact. Cerebellar exam normal. Normal gait. Psych: Awake, alert, with orientation to person, place and time. Behavior, mood, and affect are within normal limits. 13:31 ECG was reviewed by the Attending Physician. rt Vital Signs: 10:01 BP 136 / 62; Pulse 57; Pain 5/10; nj1 10:06 BP 103 / 64; Pulse 65; Resp 16; Temp 97.9(TE); Pulse Ox 97% ; Pain 4/10; nj1 11:45 BP 107 / 66; Pulse 53; Resp 20; Pulse Ox 99% on R/A; Pain 2/10; nj1 13:21 BP 111 / 65; Pulse 62; Resp 16; Pulse Ox 98% on R/A; Pain 0/10; nj1 10:01 Pain Scale: Adult nj1 10:06 Pain Scale: Adult nj1 11:45 Pain Scale: Adult nj1 13:21 Pain Scale: Adult nj1 MDM: 09:42 Patient medically screened. rt 13:31 Differential diagnosis: ACS, DVT, pulmonary embolism, pneumonia, pneumothorax. HEART rt Score: History: Slightly Suspicious (0), ECG: Non specific repolarization disturbance / LBTB / PM (1), Age: > or = 65 years (2), Risk Factors: > or = 3 Risk factors for atherosclerotic disease (2), Troponin: < or = 1 x Normal Limit (0), Total Score = 5. The patient was given aspirin in the Emergency Department. Data reviewed: vital signs, nurses notes, lab test result(s), EKG, radiologic studies. Consideration of Admission/Observation Escalation of care including admission/observation considered. Patient has had pain consistent for greater than 12 hours, 2 negative troponins and resolution of pain in the ED. Do not believe the patient has acute coronary syndrome requires immediate evaluation. She is stable to follow-up with a sweatband flanger as outpatient.. I considered the following discharge prescriptions or medication management in the emergency department Medications were administered in the Emergency Department. See MAR. Independent interpretation of the following test(s) in the Emergency Department X-Ray: My interpretation is No consolidations in interpretation of x-ray images. Care significantly affected by the following chronic conditions: Diabetes, Hypertension. Counseling: I had a detailed discussion with the patient and/or guardian regarding the historical points, exam findings, and any diagnostic results supporting the discharge/admit diagnosis, lab results, radiology results, the need for outpatient follow up, to return to the emergency department if symptoms worsen or persist or if there are any questions or concerns that arise at home. 06/14 09:49 Order name: Basic Metabolic Panel; Complete Time: 10:47 rt 06/14 09:49 Order name: CBC with Diff; Complete Time: 10:47 rt 06/14 09:49 Order name: LFT's; Complete Time: 10:47 rt 06/14 09:49 Order name: Magnesium; Complete Time: 10:47 rt 06/14 09:49 Order name: NT PRO-BNP; Complete Time: 10:47 rt 06/14 09:49 Order name: PT-INR; Complete Time: 10:47 rt 06/14 09:49 Order name: Troponin HS; Complete Time: 10:47 rt 06/14 11:59 Order name: Troponin High Sensitivity; Complete Time: 12:41 rt 06/14 09:49 Order name: XRAY Chest (1 view); Complete Time: 11:52 rt 06/14 09:54 Order name: UPPER EXTREMITY VENOUS UNILATE; Complete Time: 11:52 EDMS 06/14 11:59 Order name: CT Chest For PE Angio; Complete Time: 12:48 rt 06/14 09:49 Order name: EKG; Complete Time: 09:50 rt 06/14 09:49 Order name: Cardiac monitoring; Complete Time: 10:23 rt 06/14 09:49 Order name: EKG - Nurse/Tech; Complete Time: 10:23 rt 06/14 09:49 Order name: IV Saline Lock; Complete Time: 10:23 rt 06/14 09:49 Order name: Labs collected and sent; Complete Time: 10:23 rt 06/14 09:49 Order name: O2 Per Protocol; Complete Time: rt 12 09:49 Order name: O2 Sat Monitoring; Complete Time: : rt EC:31 Rate is 64 beats/min. Rhythm is regular, Normal Sinus Rhythm with No ectopy. QRS [place] rt is Normal. [place] interval is normal. QRS interval is normal. QT interval is normal. No Q waves. Clinical impression: NSR w/ Non-specific ST/T Changes. Administered Medications: 09:58 Drug: Aspirin PO Chewable Tablet 324 mg PO once; 81 mg tablets x 4 Route: PO; nj1 10:30 Follow up: Response: No adverse reaction nj1 10:01 Drug: Nitroglycerin Sublingual 0.4 mg Sublingual once; every five minute if needed x3 nj1 Route: Sublingual; 10:06 Follow up: Response: No adverse reaction nj1 Disposition Summary: 06/14/23 12:51 Discharge Ordered Notes: Location: Home rt Problem: new rt Symptoms: have improved rt Condition: Stable rt Diagnosis - Chest pain, unspecified rt - DVT of left brachial vein rt Followup: rt - With: Private Physician - When: 2 - 3 days - Reason: Discharge Instructions: - Discharge Summary Sheet rt - Nonspecific Chest Pain, Adult rt - Deep Vein Thrombosis rt Forms: - Medication Reconciliation Form rt - Thank You Letter rt - Antibiotic Education rt - Prescription Opioid Use rt - Patient Portal Instructions rt - Leadership Thank You Letter rt Prescriptions: - Eliquis DVT-PE Treat 30D Start 5 mg (74 tabs) Oral Tablet, Dose Pack - take 1 tablet ORAL route per package directions; 74 tablet; Refills: 0, Product rt Selection Permitted Signatures: Dispatcher [employer] EDJoshua Newsome, RN RN ll1 Etienne Georges MD MD rt Tali Ann RN RN nj1 Corrections: (The following items were deleted from the chart) 09:52 09:50 Extremity Venous Uni Ltd+[email or web address] ordered. EDMS EDMS
[2023-06-14 13:47] VITALS: TEMP 97.9
[2023-06-14 13:54] VITALS: BP 111/65; O2SAT 98
== END 2023-06-14 13:28 | disposition home or self-care (01) ==
LOC: ER 09:27
DX: I82.622 Acute embolism and thrombosis of deep veins of left upper extremity (principal); I10 Essential (primary) hypertension; E11.9 Type 2 diabetes mellitus without complications; I25.2 Old myocardial infarction
CPT/HCPCS: 93005; 85025; 80048; 36415; 83735; 85610; 80076; 84484 ×2; 83880; 71275; 71045; 93971; 99284; Q9967

== ENCOUNTER 2025-02-27 16:31 | Emergency (ER) | payer OTHER ==
[2025-02-27] MEDS ORDERED: HYDROCODONE/APAP 5/325 MG TAB ONE (17:16)
--- NOTE | 2025-02-27 18:32 | RAD REPORT ---
EXAMINATION: ONE VIEW CHEST XR CLINICAL INDICATION: Female, 74 years old.,chest wall pain TECHNIQUE: Frontal chest projection is submitted. Examination is limited by patient positioning and t echnique. COMPARISON: 06/14/2023 FINDINGS: The lungs are grossly clear although suboptimal inspiratory effort somewhat limits evaluation. Mild c hronic central predominant interstitial changes, stable. No pneumothorax or sizable effusion. The heart is normal in size. Mediastinal contours are unremarkable. IMPRESSION: No acute intrathoracic abnormalities. Stable findings.
--- NOTE | 2025-02-27 18:36 | ER ---
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 ll1 Bucket hit her L ribs (under L breast). Pain getting worse since. Coronavirus screen: Client denies travel out of the [place] in the last 14 days. At this time, the client does not indicate any symptoms associated with coronavirus-19. Ebola Screen: Patient denies travel to an Ebola-affected area in the 21 days before illness onset. Initial Sepsis Screen: Does the patient meet any 2 criteria? No. Patient's initial sepsis screen is negative. Does the patient have a suspected source of infection? No. Patient's initial sepsis screen is negative. Risk Assessment: Do you want to hurt yourself or someone else? Patient reports no desire to harm self or others. Onset of symptoms was February 18, 2025. 16:57 Method Of Arrival: Ambulatory 1 16:57 Acuity: TAMIKO 3 ll1 Triage Assessment: 17:25 General: Appears in no apparent distress. Behavior is cooperative, appropriate for age, bp anxious. Pain: Complains of pain in left breast. EENT: No deficits noted. Neuro: No deficits noted. Cardiovascular: No deficits noted. Respiratory: No deficits noted. GI: No signs and/or symptoms were reported involving the gastrointestinal system. : No signs and/or symptoms were reported regarding the genitourinary system. Derm: No deficits noted. Musculoskeletal: No deficits noted. Historical: - Allergies: 16:51 GABAPENTIN; ll1 - PMHx: 16:51 Diabetes - NIDDM; Hypertension; Hypothyroidism; Myocardial infarction; ll1 - PSHx: 16:51 knee replacement; ll1 - Immunization history:: Adult Immunizations up to date. - Infectious Disease History:: Denies. - Social history:: Smoking status: Patient denies any tobacco usage or history of. Screenin:18 [facility] ED Fall Risk Assessment (Adult) History of falling in the last 3 months, ph including since admission No falls in past 3 months (0 pts) Confusion or Disorientation No (0 pts) Intoxicated or Sedated No (0 pts) Impaired Gait No (0 pts) Mobility Assist Device Used No (0 pt) Altered Elimination No (0 pt) Score/Fall Risk Level 0 - 2 = Low Risk Oriented to surroundings, Maintained a safe environment, Hourly rounding (assess needs \T\ fall precautionary measures) done. Abuse screen: Denies threats or abuse. Denies injuries from another. Nutritional screening: No deficits noted. Tuberculosis screening: No symptoms or risk factors identified. Assessment: 17:20 General: Appears in no apparent distress. comfortable, Behavior is calm, cooperative, ph appropriate for age. Pain: Complains of pain in left breast. Neuro: Level of Consciousness is awake, alert, obeys commands, Oriented to person, place, time, situation. Cardiovascular: Capillary refill < 3 seconds Patient's skin is warm and dry. Respiratory: Airway is patent Respiratory effort is even, unlabored. Derm: Skin is pink, warm \T\ dry. Vital Signs: 16:57 BP 120 / 56; Pulse 57; Resp 17; Temp 97.8; Pulse Ox 99% on R/A; Weight 71.21 kg; Height ll1 5 ft. 1 in. ; Pain 9/10; 17:21 BP 105 / 46; Pulse 64; Resp 18; Pulse Ox 97% on R/A; ph 18:49 BP 121 / 75; Pulse 62; Resp 20; Pulse Ox 97% ; bp 16:57 Body Mass Index 29.66 (71.21 kg, 154.94 cm) ll1 16:57 Pain Scale: Adult ll1 Vitals: 17:21 Cardiac Rhythm Assessment Sinus rhythm. ph ED Course: 16:35 Patient arrived in ED. im 16:36 Kathy Breen FNP-C is PHCP. kb 16:36 Robb Cohen MD is Attending Physician. kb 16:51 Arm band placed on Patient placed in an exam room, on a stretcher. ll1 16:58 Triage completed. ll1 17:09 EKG done, by carpet technician. ts3 17:18 Rip Fonseca, RN is Primary Nurse. bp 17:19 Patient has correct armband on for positive identification. Bed in low position. Call ph light in reach. Side rails up X 1. Pulse ox on. NIBP on. 17:33 Chest Single View XRAY In Process Unspecified. EDMS 18:49 No provider procedures requiring assistance completed. Patient did not have IV access bp during this emergency room visit. Administered Medications: 17:23 Drug: HYDROcodone-acetaminophen PO 5 mg-325 mg 1 tabs PO once Route: PO; bp 18:50 Follow up: Response: No adverse reaction bp Medication: 17:19 VIS not applicable for this client. ph Outcome: 18:36 Discharge ordered by . denisse 18:49 Discharged to home via wheelchair, with family, bp 18:49 Condition: stable 18:49 Discharge instructions given to patient, family, Instructed on discharge instructions, follow up and referral plans. medication usage, Demonstrated understanding of instructions, follow-up care, medications, Prescriptions given X 2, 18:50 Patient left the ED. bp Signatures: Dispatcher [employer] EDMS Kathy Breen, PORT TRAFFIC MANAGER-C PORT TRAFFIC MANAGER-Nancy Canada RN RN Rip Rojas RN RN Joshua Mathews RN RN ll1 Angelita Cueva Taisha 3
--- NOTE | 2025-02-27 18:36 | EDPHYS ---
Physician Documentation [facility] Name: Patsy Lilly Age: 74 yrs Sex: Female : 1950 Arrival Date: 02/27/2025 Time: 16:31 Bed 4 Private MD: ED Physician Robb Cohen HPI: 02/27 16:57 This 74 yrs old Female presents to ER via Unassigned with complaints of under kb breast pain. 16:57 pt is a 74 year old female who presents for left chest wall pain that started 9 days kb ago. STates she was bending over a watermelon box, picked up a watermelon and the box hit her in the chest. States she has had pain since then. Denies shortness of breath, nausea. Pain worse with movement, palpation. Historical: - Allergies: 16:51 GABAPENTIN; ll1 - PMHx: 16:51 Diabetes - NIDDM; Hypertension; Hypothyroidism; Myocardial infarction; ll1 - PSHx: 16:51 knee replacement; ll1 - Immunization history:: Adult Immunizations up to date. - Infectious Disease History:: Denies. - Social history:: Smoking status: Patient denies any tobacco usage or history of. ROS: 16:57 Constitutional: As per HPI kb Exam: 16:57 Constitutional: This is a well developed, well nourished patient who is awake, alert, kb and in no acute distress. Head/Face: Normocephalic, atraumatic. ENT: Moist Mucous membranes Cardiovascular: Regular rate Respiratory: Respirations even and unlabored. No increased work of breathing. Talking in full sentences Skin: Warm, dry with normal turgor. Normal color. MS/ Extremity: Pulses equal, no cyanosis. Neurovascular intact. Full, normal range of motion. Neuro: Awake and alert, GCS 15, oriented to person, place, time, and situation. 16:57 Chest/axilla: Inspection: normal, Palpation: tenderness, that is moderate, of the left breast, that totally reproduces the patient's complaints, 17:08 ECG was reviewed by the Attending Physician. kb Vital Signs: 16:57 BP 120 / 56; Pulse 57; Resp 17; Temp 97.8; Pulse Ox 99% on R/A; Weight 71.21 kg; Height ll1 5 ft. 1 in. ; Pain 9/10; 17:21 BP 105 / 46; Pulse 64; Resp 18; Pulse Ox 97% on R/A; ph 18:49 BP 121 / 75; Pulse 62; Resp 20; Pulse Ox 97% ; bp 16:57 Body Mass Index 29.66 (71.21 kg, 154.94 cm) ll1 16:57 Pain Scale: Adult ll1 MDM: 16:36 Medical Screening Exam initiated kb 18:32 Data reviewed: vital signs, nurses notes. Independent interpretation of the following kb test(s) in the Emergency Department X-Ray: My interpretation is CXR: no pneumothorax. 18:35 Differential diagnosis: pneumothorax, contusion, fracture. Historians other than the kb Patient: Family Member: sister. Counseling: I had a detailed discussion with the patient and/or guardian regarding the historical points, exam findings, and any diagnostic results supporting the discharge/admit diagnosis, radiology results, the need for outpatient follow up, a family practitioner, to return to the emergency department if symptoms worsen or persist or if there are any questions or concerns that arise at home. 02/27 16:56 Order name: Chest Single View XRAY; Complete Time: 18:35 kb 02/27 16:56 Order name: EKG - Nurse/Tech; Complete Time: 17:09 kb EC:08 Rate is 55 beats/min. Rhythm is regular. QRS [place] is Normal. [place] interval is normal at kb 168 msec. QRS interval is normal at 84 msec. QT interval is normal at 426 msec. Administered Medications: 17:23 Drug: HYDROcodone-acetaminophen PO 5 mg-325 mg 1 tabs PO once Route: PO; bp 18:50 Follow up: Response: No adverse reaction bp Disposition: 02/28 13:52 Co-signature as Attending Physician, Robb Cohen MD I agree with the assessment and brandin plan of care. I reviewed the patient's care provided by Advanced Practice Provider \T\ agree w/ the diagnosis \T\ care plan. I personally saw the pt \T\ performed a substantive portion of the visit, incldng all aspects of the (History/Exam/Medical Decision Making). Disposition Summary: 02/27/25 18:36 Discharge Ordered Notes: Location: Home kb Condition: Stable kb Diagnosis - Chest pain, unspecified - chest wall pain kb Followup: kb - With: Emergency Department - When: As needed - Reason: Worsening of condition Followup: kb - With: Private Physician - When: 2 - 3 days - Reason: Recheck today's complaints, Continuance of care, Re-evaluation by your physician Discharge Instructions: - Discharge Summary Sheet kb - Chest Wall Pain, [id number] kb Forms: - Medication Reconciliation Form kb - Antibiotic Education kb - Prescription Opioid Use kb - Patient Portal Instructions kb - Leadership Thank You Letter kb Prescriptions: - Diclofenac Sodium 75 mg Oral tablet, delayed release (enteric coated) - take 1 tablet ORAL route 2 times per day As needed; 30 tablet; Refills: 0, kb Product Selection Permitted - orphenadrine citrate 100 mg Oral Tablet Sustained Release - take 1 tablet ORAL route 2 times per day As needed; 20 tablet; Refills: 0, kb Product Selection Permitted Signatures: Dispatcher [employer] EDKathy Gomez, JOSE-C JOSE-Robb Alfaro MD MD cha Hall, Patricia RN RN Rip Rojas RN RN bp Lewis, Lynsay, RN RN ll1 Corrections: (The following items were deleted from the chart) 02/27 16:56 16:56 Chest Single View+RAD.[email or web address] ordered. EDMI EDMS
[2025-02-28 01:49] VITALS: TEMP 97.8
[2025-02-28 01:50] VITALS: O2SAT 97
[2025-02-28 01:51] VITALS: BP 121/75
== END 2025-02-27 18:50 | disposition home or self-care (01) ==
LOC: ER 16:31
DX: R07.89 Other chest pain (principal); I10 Essential (primary) hypertension; E11.9 Type 2 diabetes mellitus without complications; I25.2 Old myocardial infarction
CPT/HCPCS: 71045; 93005; 99284